=== PATIENT | male | born 1955 | race Caucasian/White ===

== ENCOUNTER 2021-11-30 06:16 | Observation (INO) ==
--- NOTE | 2021-10-29 13:21 | PAT Medication Instructions ---
Medication Instructions Date of Service October 29, 2021 Home Medications cholecalciferol (vitamin D3) 50 mcg (2,000 unit) tablet (Vitamin D3) 50 mcg PO UD coQ10 (ubiquinol) 200 mg capsule 200 mg PO QPM empagliflozin 10 mg tablet (Jardiance) 10 mg PO QAM fenofibrate micronized 134 mg capsule 134 mg PO PM finasteride 1 mg tablet 1 mg PO QAM insulin glargine 100 unit/mL (3 mL) subcutaneous pen (Basaglar KwikPen U-100 Insulin) 46 - 47 unit SUBCUT QAM liraglutide 0.6 mg/0.1 mL (18 mg/3 mL) subcutaneous pen injector (Victoza 2-Yury) 1.8 mg SUBCUT QAM lisinopril 5 mg tablet 5 mg PO QAM metformin 1,000 mg tablet 1,000 mg PO BID omega-3 fatty acids 1,000 mg PO QPM omega-3 fatty acids 1,000 mg PO QPM rosuvastatin 20 mg tablet 20 mg PO QAM STOP taking 2 weeks before surgery (or as soon as possible if surgery is within 2 weeks) coQ10 (ubiquinol) 200 mg capsule 200 mg PO QPM omega-3 fatty acids 1,000 mg PO QPM omega-3 fatty acids 1,000 mg PO QPM STOP taking 48 hours before surgery fenofibrate micronized 134 mg capsule 134 mg PO PM DO NOT take the morning of surgery cholecalciferol (vitamin D3) 50 mcg (2,000 unit) tablet (Vitamin D3) 50 mcg PO UD empagliflozin 10 mg tablet (Jardiance) 10 mg PO QAM lisinopril 5 mg tablet 5 mg PO QAM metformin 1,000 mg tablet 1,000 mg PO BID Take morning of surgery With a small sip of water, OTHERWISE NOTHING TO EAT OR DRINK AFTER MIDNIGHT: finasteride 1 mg tablet 1 mg PO QAM rosuvastatin 20 mg tablet 20 mg PO QAM Take evening before surgery fenofibrate micronized 134 mg capsule 134 mg PO PM metformin 1,000 mg tablet 1,000 mg PO BID Insulin Dependent Diabetic Patients * Test your blood sugar the morning of surgery * If Blood Sugar is GREATER THAN 150, take HALF of your regular dose of: insulin glargine 100 unit/mL (3 mL) subcutaneous pen (Basaglar KwikPen U-100 Insulin) (take 23 units) * If Blood Sugar is LESS THAN 150, DO NOT TAKE ANY: insulin glargine 100 unit/mL (3 mL) subcutaneous pen (Basaglar KwikPen U-100 Insulin) Other Notes If you have any questions please call us at [phone] or [phone] or [phone] or [phone]
--- NOTE | 2021-11-01 11:10 | Anesthesiology Consultation ---
Date of Service November 01, 2021 Assessment & Plan (1) Encounter for pre-operative examination: - COVID screening: Per assessment on 11/01: No known COVID-19 positive contacts or current COVID-19 related symptoms. Travel screen negative. Patient vaccinate d. Surgeon arranging preop COVID testing. Awaiting results. - Check BSG AM DOS Chart Review Chart Review: Acceptable Risk for Surgery and Patient seen in Pre Admission Testing Teaching & Discussion Pre-Anesthesia Teaching/Discussion Notes: Instructed NPO after midnight before surgery,except medications with 15 cc of water. Medication instructions provided according to the PAT guidelines. History Surgery Operation Date: 11/30/21 07:00 Proposed Procedures p Right Unicompartmental Knee Replacement vs - Zbigniew Hay MD s Total Knee Arthroplasty - Zbigniew Hay MD Height/Weight Height: 5 ft 11 in Weight: 111.3 kg Allergies Allergy/AdvReac Type Severity Reaction Status Date / Time No Known Allergies Allergy Unknown Verified 10/29/21 10:03 Medications Home Medications Medication Instructions Recorded Confirmed Last Taken cholecalciferol (vitamin D3) 50 50 mcg PO UD 10/29/21 10/29/21 Unknown mcg (2,000 unit) tablet (Vitamin D3) coQ10 (ubiquinol) 200 mg capsule 200 mg PO QPM 10/29/21 10/29/21 Unknown empagliflozin 10 mg tablet 10 mg PO QAM 10/29/21 10/29/21 Unknown (Jardiance) fenofibrate micronized 134 mg 134 mg PO PM 10/29/21 10/29/21 Unknown capsule finasteride 1 mg tablet 1 mg PO QAM 10/29/21 10/29/21 Unknown insulin glargine 100 unit/mL (3 46 - 47 unit SUBCUT [facility] 10/29/21 10/29/21 Unk nown mL) subcutaneous pen (Basaglar KwikPen U-100 Insulin) liraglutide 0.6 mg/0.1 mL (18 mg/3 1.8 mg SUBCUT [facility] 10/29/21 10/29/21 Unknown mL) subcutaneous pen injector (Victoza 2-Yury) lisinopril 5 mg tablet 5 mg PO QAM 10/29/21 10/29/21 Unknown metformin 1,000 mg tablet 1,000 mg PO BID 10/29/21 10/29/21 Unknown omega-3 fatty acids 1,000 mg PO QPM 10/29/21 10/29/21 Unknown omega-3 fatty acids 1,000 mg PO QPM 10/29/21 10/29/21 Unknown rosuvastatin 20 mg tablet 20 mg PO QAM 10/29/21 10/29/21 Unknown Allergy Relief (fluticasone) DAILY PRN 11/01/21 Unknown Antacid 1 tab PO DAILY 11/01/21 11/01/21 Unknown Wheeled Walker #1 ea 11/01/21 11/01/21 Unknown aspirin 81 mg tablet 81 mg PO BID 11/01/21 11/01/21 Unknown cyanocobalamin (vitamin B-12) 1,000 mcg PO HS 11/01/21 11/01/21 Unknown 1,000 mcg tablet (Vitamin B-12) ibuprofen 1 tab PO DAILY PRN 11/01/21 11/01/21 Unknown Past Medical History Medical History Arthritis Diabetes mellitus, type 2 IDDM Diabetic neuropathy Heartburn High cholesterol Hx of basal cell carcinoma Sleep apnea CPAP (compliant) Exercise / Class Metabolic Activity III < 4 Walking/Shop/Light housework (one FS (no CP, + SOB)) Past Family History Family History Mother Family history of diabetes mellitus Father Family history of diabetes mellitus Other No family history of adverse response to anesthesia Past Surgical History Surgical History History of colonoscopy History of esophagogastroduodenoscopy (EGD) History of tooth extraction History of transurethral resection of prostate Past Anesthesia History No Hx of Anesthesia Complications and No Family Hx of Anesthesia Complications History of PONV No Hx of PONV and No Hx of Motion Sickness Social History Smoking Status: Never smoker Do You Dip or Chew Tobacco: No Hx Alcohol Use: Yes alcohol intake frequency: holidays/special occasions only substance use type: does not use Review of Systems Patient denies chest pain, shortness of breath, fever, chills, cough, wheezing, palpitations. Physical Exam Vital Signs VITALS BP 125/72 P 76 TEMP 97.8 SP02 96%RA RESP 16 PHYSICAL Full cervical extension range of motion. Full TMJ range of motion. TMD 3 finger breaths Mallampati Score 3 Dentition: intact, + crowns, + implants Lungs: clear throughout to auscultation Cardiac: regular rate and rhythm, no murmurs noted Spine: normal Carotid arteries: negative bruit Extremities: no edema Lab Results Anesthesia Preop Results Results Anesthesia Widget: WBC 13.44 K/uL (4.8-10.8) H 11/01/21 Hgb 16.3 g/dL (14.0-18.0) 11/01/21 Hct 49.3 % (42-52) 11/01/21 Plt 277 K/uL (130-400) 11/01/21 Na 140 mmol/L (136-145) 11/01/21 K 4.6 mmol/L (3.5-5.1) 11/01/21 Cl 104 mmol/L (98-107) 11/01/21 CO2 29 mmol/L (21-32) 11/01/21 BUN 24 mg/dl (6-23) H 11/01/21 Creat 1.09 mg/dl (0.6-1.4) 11/01/21 Glucose Level 139 mg/dl (70-99(Fasting)) H 11/01/21 PT 10.4 Seconds (9.0-12.0) 11/01/21 PTT 27.8 Seconds (21.0-31.0) 11/01/21 INR 1.0 (0.9-1.1) 11/01/21 Blood Type O Positive 11/01/21 Antibody Screen NEGATIVE 11/01/21 Testing Laboratory Results Elevated WBC on preop labs > will forward to PCP for continuity of care* 10/04/21 HGBA1C 6.5% Electrocardiogram Date: 11/01/21 NSR at 71bpm. RBBB. Chest X-Ray Date: 11/01/21 FINDINGS: PA and lateral chest radiographs are compared to study dated 05/11/2016. The heart is top normal for projection. The pulmonary vasculature is noncongested. Chronic additional thickening is similar to previous. The lungs and pleural spaces are clear. There is no pneumothorax. The skeletal structures are osteopenic. There are numerous healed right-sided rib fractures. Degenerative change is noted in the thoracic spine. IMPRESSION: No active disease in the chest.
[~2021-11-30 06:16] MED LIST: ACETAMINOPHEN 500 MG TAB PO SCH; BUPIVACAINE LIPOSOME/PF 266 MG, BUPIVACAINE/EPINEPHRINE 50 ML, SODIUM CHLORIDE 0.9% 30 ... INFIL SCH; FAMOTIDINE 20 MG TAB PO SCH; GABAPENTIN 300 MG CAP PO SCH; LR 500ML BOLUS, THEN 15ML/HR IV SCH; LR 60ML/HR IV SCH; Scopolamine 1 MG TDSY TD SCH; TRANEXAMIC ACID 1,000 MG **IV Intra-op IV SCH; ceFAZolin 2000MG 2,000 MG/15 ML SYR IV SCH
[2021-11-30] MEDS ORDERED: BUPIVACAINE 0.25% 30 ML VIAL ONE (06:26)
[2021-11-30] MEDS ORDERED: BUPIVACAINE 0.5 % 5 MG/1 ML PF 10ML VIAL ONE (06:26)
[2021-11-30] MEDS ORDERED: EPINEPHrine INJ 1 MG/ML AMP ONE (06:26)
[2021-11-30] MEDS ORDERED: DEXAMETHASONE SOD INJ 4 MG/ML VIAL ONE (06:26)
--- NOTE | 2021-11-30 06:57 | History & Physical Bridge Note ---
Date of Service November 30, 2021 History & Physical Bridge Note I have examined the patient, reviewed the History & Physical and in the interval since the performance of the History & Physical I have noted the following changes of clinical significance: no changes noted
[2021-11-30] MEDS ORDERED: PROPOFOL IV EMULSION 10 MG/ML 20 ML VIAL IV ONE ×6 (07:32→10:05)
[2021-11-30] MEDS ORDERED: MIDAZOLAM HCL 1 MG/ML 2ML VIAL ONE (07:32)
[2021-11-30] MEDS ORDERED: fentaNYL citrate 100 MCG/2 ML VIAL ONE (07:32)
[2021-11-30] MEDS ORDERED: SODIUM CHLORIDE 0.9% PF 50 ML VIAL ONE (08:44)
[2021-11-30] MEDS ORDERED: BUPIVACAINE/EPINEPHRINE 0.25% 1:200,000 30 ML VIAL ONE (08:44)
[2021-11-30] MEDS ORDERED: BUPIVACAINE LIPOSOME 1.3% 266 MG/20 ML VIAL ONE (08:44)
[2021-11-30] MEDS ORDERED: ONDANSETRON INJ 2 MG/ML 2 ML VIAL ONE (09:10)
[2021-11-30] MEDS ORDERED: fentaNYL citrate 100 MCG/2 ML VIAL IV PRN (09:43)
[2021-11-30] MEDS ORDERED: ATROPINE SULFATE 0.1 MG/ML 10ML SYR IV PRN (09:43)
[2021-11-30] MEDS ORDERED: ONDANSETRON INJ 2 MG/ML 2 ML VIAL IV PRN ×2 (09:43→12:41)
[2021-11-30] MEDS ORDERED: ePHEDrine sulfate 50 MG/ML AMP IV PRN (09:43)
--- NOTE | 2021-11-30 11:18 | Operative Report ---
PG Post Operative Report Pre & Post Diagnosis Operation Date: 11/30/21 08:50 Pre-Op Diagnosis: Right Knee Medial Compartment Degenerative Joint Disease Post-Op Diagnosis: Right Knee Medial Compartment Degenerative Joint Disease I identified the patient and participated in the time-out.: Yes Procedure Operation Date: 11/30/21 08:50 Actual Procedures p Right Unicompartmental Knee Replacement - Zbigniew Hay MD Surgeon Zbigniew Hay MD Legal Librarian Roney Yo PA-C Estimated Blood Loss 25 Findings Consistent with Post-Op Diagnosis Operative findings revealed full-thickness cartilage loss on the medial femoral condyle and a portion of the medial tibial plateau. No real bone eburnation. He had osteophytes medially. He did have some grade 2 changes in the trochlea and the central aspect fairly small and the patella was pretty well-preserved. The lateral compartment was well-preserved. His ACL was intact. Specimens Right knee sent for pathology. Anesthesia Type Spinal MAC Complications none Disposition Accompanied Patient To Recovery: No Indications Patient is a 66-year-old fairly active gentleman whose had about a year to year and a half history of increasing right medial knee pain and discomfort. He has been through conservative treatment putting injections provide only temporary relief. He was having difficulty doing this he will enjoy doing such as golfing. The x-ray showed showed some fairly mild medial compartment arthritis. We did get an MRI which showed medial meniscus tear but pretty significant full-thickness cartilage loss throughout the entire medial compartment. The rest knee looked pretty good and he elected proceed with partial knee replacement. Description of Procedure Operative implants consist of: 1 Biomet Crane size large medial femoral component. 2. Biomet Crane size EE right medial tibial tray. 3. Biomet Crane 4 mm mobile-bearing insert. The patient was taken to the operating, identified, placed on the operating table supine position protectors were properly padded. IV antibiotics tried by anesthesia team. A spinal anesthetic and abductor canal block had provided holding area. Granados catheter was placed in sterile fashion a right thigh turn was then placed in the right lower extremities and prepped and draped in usual sterile fashion. The right leg was elevated exsanguinated with use of an Esmarch in terms playset 300 mmHg. An anterior approach of the right knee was then performed to a slightly oblique incision at beginning of the superior pole of the patella and extending just medial to the tibial tubercle. Sharp dissection was carried through subcutaneous tissue down the extensor mechanism. Full-thickness flaps were elevated. A medial parapatellar arthrotomy incision was made. Some subperiosteal dissection was carried out medially. Great care was taken to protect the MCL ligament. The medial meniscus was excised. The fat pad was was excised. I examined the ACL was pristine. I examined the rest of the knee. The lateral compartment looked very good. The trochlea had some central wear in it but fairly mild. The patella looked pretty good as well. He had full- thickness cartilage loss medially. We elect to proceed with a partial knee replacement. The femur was then sized to a size large. The large spoon was placed. Some osteophytes were taken off the distal femur. The splint was then attached to the extra medullary tibial guide. The guide was pinned in place. The cut for the proximal tibia was made and it was sized to a size EE. Attention drawn the femur. The distal femur stem with a sharp drill. Intramedullary félix was placed. The medium femoral template was placed and attached to the IM félix with the femur set at 4 which was similar to the a 4G clamp used to cut the tibia. The holes were drilled for the femoral component. Posterior cutting guide was placed and the posterior cut was made. The knee was flexed. The remnants of the medial meniscus was excised. I then sized up the tibia to an ER. I used a 0 spigot the milled the distal femur. I then trialed the knee and the 4 feeler gauge fit good in flexion and I was having trouble getting the 1 even in extension. I then used a 3 spigot the milled the distal femur. Even after doing this it was still little tight in extension so I used the a 4 spigot and milled the femur again. After doing this the knee was well balanced in flexion and extension. Attention drawn to placing permanent implants. Nupathe all trial implants were removed. The posterior osteophyte cutting guide was placed and posterior osteophyte was removed. The anterior femoral component relief was performed with the milling device. Cement drill was then used to create holes in the distal femur for cement interdigitation. The tibial tray was pinned in place and the toothbrush blade saw was used to create the defect for the keel. We then trialed the knee 1 more time in the size 4 implant fit most appropriately. Attention drawn to placing permanent components. Nupathe all trial components were removed. I irrigated the wound extensively. We did inject locally with 100 cc of combination of 20 cc of Exparel, 30 cc normal saline, 50 cc of quarter percent Marcaine with epinephrine. Double batch Palacos G cement was then mixed. A size E right medial tibial tray was cemented in place followed by a large femoral component. I used a 4 feeler gauge to pressurize the knee within about 30degrees short of full extension. All extraneous cement was removed. Once the cement was hardened we checked. Additional cement and all was removed. We then trialed the knee 1 more time in the for implant was selected. The performed permanent for implant was placed. The knee was balanced in flexion extension. We then irrigated the wound extensively. The tourniquet was let down for turn time 81 minutes. Hemostasis reduced electrocautery. Extensor mechanism closed with #1 Vicryl suture in a [id number] fashion to the extensor mechanism checked found to be intact the subcutaneous tissue then closed 2 Dexon suture in a buried interrupted fashion skin was closed skin elda. Leg was then cleaned and dried a sterile dressing was Xeroform, 4 x 4's, ABD pad, sterile cast padding, Christian bandage were applied. Patient then transferred to the recovery room in stable condition. Patient tolerated procedure well and there were no complications. Roney Yo, my physician embalmer assistant, was present for the entire procedure. His assistance was essential and required for appropriate patient positioning, prepping and draping, surgical exposure, performing the technical details of the operation, placement the implants, closure of the wound, and placement of the sterile bandage. I attest to the content of the Intraoperative Record and any orders documented therein. Any exceptions are noted below.
--- NOTE | 2021-11-30 11:42 | XRay Report ---
XR knee RT 1 or 2V routine CLINICAL HISTORY: Surgical Post Op TECHNIQUE: 2 views of the right knee were obtained. Comparison: Comparison is made to the radiograph 01/22/2009 FINDINGS: Right knee medial compartment arthroplasty is seen. Expected postsurgical appearance is seen with sub cutaneous emphysema, soft tissue swelling, and surgical staple placement. IMPRESSION: Expected appearance status post medial compartment arthroplasty of the knee. ACT 112: Negative or not required by law. Electronically signed by: Dmitri East M.D. 11/30/2021 11:41 AM
[2021-11-30] MEDS ORDERED: GLUCOSE 10 TABS/TUBE PO PRN (12:41)
[2021-11-30] MEDS ORDERED: HYDROmorphone INJ 0.5 MG/0.5 ML SYR IV PRN (12:41)
[2021-11-30] MEDS ORDERED: DEXTROSE 50% 50 ML SYRINGE IV PRN (12:41)
[2021-11-30] MEDS ORDERED: bisacodyL 10 MG SUPP PR PRN (12:41)
[2021-11-30] MEDS ORDERED: METOCLOPRAMIDE HCL INJ 5 MG/ML 2 ML VIAL IV PRN (12:41)
[2021-11-30] MEDS ORDERED: ALUMINUM/MAGNESIUM SUSP 30 ML UDC PO PRN (12:41)
[2021-11-30] MEDS ORDERED: PHARMACY GLYCEMIC MGMT CONSULT PRN (12:41)
[2021-11-30] MEDS ORDERED: GLUCOSE 40% GEL 15 GM TUBE PO PRN (12:41)
[2021-11-30] MEDS ORDERED: MAGNESIUM HYDROXIDE SUSP 30 ML UDC PO PRN (12:41)
[2021-11-30] MEDS ORDERED: NON-FORMULARY MEDICATION (Cholecalciferol (Vitamin D3) [Vitamin D3] 50 mcg (2,000 unit) Ta PO SCH (12:41)
[2021-11-30] MEDS ORDERED: CARBOHYDRATES FOR HYPOGLYCEMIA PO PRN (12:41)
[2021-11-30] MEDS ORDERED: GLUCAGON FOR INJ 1 MG VIAL SQ PRN (12:41)
[2021-11-30] MEDS ORDERED: NALOXONE HCL 0.4 MG/1 ML VIAL/CARP IV PRN (12:41)
[2021-11-30] MEDS ORDERED: CALCIUM CARBONATE 500 MG CHEWABLE TAB PO PRN (13:39)
[2021-11-30] MEDS: SODIUM CHLORIDE 0.9% 1000ML 1,000 ML IV SCH (14:12)
[2021-11-30] MEDS: ACETAMINOPHEN 500 MG TAB PO SCH ×2 (14:17→21:13)
--- NOTE | 2021-11-30 14:17 | Pharmacy Report ---
Pharmacy Glycemic Short Note 2 - Date of Service November 30, 2021 - Glycemic Short BSG Results (Last 24 hours): 11/30/21 11/30/21 11/30/21 07:18 11:12 12:24 POC Glucose 99 98 99 OUTPATIENT ANTIDIABETIC REGIMEN: * Lantus 46-47 units SC daily * Metformin 1000 mg PO BIDM * Jardiance 10 mg PO daily * Victoza 1.8 mg SC qAM ASSESSMENT: * RF is a 66 year old male POD #0 s/p right unicompartmental knee replacement * Received 4 mg IV dexamethasone in OR * Preop BSG of 99 mg/dL, postop BSG of 99 mg/dL * Unknown HbA1c * Will give scaled Lantus dose with dinner tonight, will allow for reduced dose from home given lower BSGs so far today and in case outpatient diet differs significantly from inpatient PLAN FOR INPATIENT GLYCEMIC CONTROL: * Hold outpatient oral diabetes medications * Basal insulin * Lantus 35-45 units SC x 1 today (see EHR for details), reassess in AM * Bolus insulin * NovoLog per scale ACHS or Q6hrs while NPO * Goal Range: Low 110 mg/dL - High 140 mg/dL * Correction Factor: 15 mg/dL/unit * Nutritional / Prandial insulin per carb ratio of 1 unit per 5 grams CHO consumed
[2021-11-30] MEDS: INSULIN ASPART PER UNIT SC SCH ×3 (14:18→21:19)
--- NOTE | 2021-11-30 14:29 | Anesthesiology Progress Note ---
Date of Service November 30, 2021 Anesthesia Post Procedure Vital Signs Vital Signs: Temp Pulse Pulse Resp BP BP Pulse Ox 11/30/21 14:11 36.6 C 16 136/78 98 11/30/21 13:17 36.6 C 72 18 137/83 98 11/30/21 12:49 35.8 C L 66 16 130/81 97 11/30/21 12:19 35.6 C L 68 143/78 H 91 11/30/21 12:05 65 15 133/78 94 11/30/21 11:55 36.4 C L 70 16 138/81 94 11/30/21 11:45 36.4 C L 70 16 136/80 99 11/30/21 11:35 65 17 126/80 100 11/30/21 11:25 68 19 124/77 100 11/30/21 11:15 76 18 110/73 94 11/30/21 11:07 36.4 C L 80 14 114/66 92 11/30/21 07:14 36.7 C 75 20 147/87 H 96 Transfer of Care Handoff Completed per policy Notes Mental Status: alert / awake / arousable Patient Amnestic to Procedure: Yes Nausea / Vomiting: adequately controlled Pain: adequately controlled Airway Patency, RR, SpO2: stable & adequate BP & HR: stable & adequate Hydration State: stable & adequate Neuraxial Anesthesia: was administered and sensory block is resolving Anesthetic Complications: no major complications apparent and Pt Satisfied with anesthetic care
[2021-11-30] MEDS ORDERED: INSULIN GLARGINE SOLOSTAR 100 UNITS/ML 3 ML PEN SC ONE (16:30)
[2021-11-30] MEDS: Scopolamine CHECK PATCH PLACEMENT SCH (16:35)
[2021-11-30] MEDS ORDERED: TRANEXAMIC ACID / 0.7% NACL 1,000 MG/100 ML BAG IV SCH (17:15)
[2021-11-30] MEDS: ceFAZolin 2000MG 2,000 MG/15 ML SYR IV SCH (17:26)
[2021-11-30] MEDS: ASCORBIC ACID 500 MG TAB PO SCH (17:28)
[2021-11-30] MEDS: KETOROLAC TROMETHAMINE 15 MG/ML VIAL IV SCH (17:28)
[2021-11-30] MEDS ORDERED: NON-FORMULARY MEDICATION (Coq10 (Ubiquinol) 200 mg Capsule) PO SCH (21:00)
[2021-11-30] MEDS ORDERED: NON-FORMULARY MEDICATION (Aspirin 81 mg Tablet) PO SCH (21:00)
[2021-11-30] MEDS ORDERED: NON-FORMULARY MEDICATION (Omega-3 Fatty Acids Capsule) PO SCH ×2 (21:00)
[2021-11-30] MEDS: FENOFIBRATE NANOCRYSTALLIZED 145 MG TABLET PO SCH (21:11)
[2021-11-30] MEDS: DOCUSATE SODIUM 100 MG CAP PO SCH (21:12)
[2021-11-30] MEDS: SENNA 8.6 MG TAB PO SCH (21:12)
[2021-11-30] MEDS: CYANOCOBALAMIN (B-12) 500 MCG TABLET PO SCH (21:13)
[2021-11-30] MEDS: ASPIRIN 81 MG ECTAB PO SCH (21:14)
[2021-11-30] MEDS: TAPENTADOL HCL ER 50 MG TABCR PO SCH (21:20)
[2021-12-01] MEDS: KETOROLAC TROMETHAMINE 15 MG/ML VIAL IV SCH ×5 (00:53→23:17)
[2021-12-01] MEDS: ceFAZolin 2000MG 2,000 MG/15 ML SYR IV SCH (00:54)
[2021-12-01] MEDS: Scopolamine CHECK PATCH PLACEMENT SCH ×4 (00:54→23:17)
[2021-12-01] MEDS: SODIUM CHLORIDE 0.9% 1000ML 1,000 ML IV SCH (01:12)
[2021-12-01] MEDS: ACETAMINOPHEN 500 MG TAB PO SCH ×3 (06:01→20:52)
[2021-12-01 08:34] LABS: Estimated Average Glucose 151 mg/dl; Hemoglobin A1C 6.9 % (4.5-5.6)
[2021-12-01] MEDS ORDERED: NON-FORMULARY MEDICATION (Liraglutide [Victoza 2-Pak] 0.6 mg/0.1 mL (18 mg/3 mL) Pen Injec SQ SCH (09:00)
[2021-12-01] MEDS ORDERED: NON-FORMULARY MEDICATION (Empagliflozin [Jardiance] 10 mg Tablet) PO SCH (09:00)
[2021-12-01] MEDS: DOCUSATE SODIUM 100 MG CAP PO SCH ×2 (09:03→20:52)
[2021-12-01] MEDS: ROSUVASTATIN CALCIUM 20 MG TAB PO SCH (09:03)
[2021-12-01] MEDS: lisinopril 5 MG TAB PO SCH (09:03)
[2021-12-01] MEDS: ASPIRIN 81 MG ECTAB PO SCH ×2 (09:03→20:51)
[2021-12-01] MEDS: TAMSULOSIN HCL 0.4 MG CAP PO SCH (09:03)
[2021-12-01] MEDS: ASCORBIC ACID 500 MG TAB PO SCH ×2 (09:04→17:37)
[2021-12-01] MEDS: MULTIVITAMIN TAB PO SCH (09:04)
[2021-12-01] MEDS: TAPENTADOL HCL ER 50 MG TABCR PO SCH ×2 (09:08→20:55)
[2021-12-01] MEDS: INSULIN ASPART PER UNIT SC SCH ×4 (09:08→20:55)
[2021-12-01] MEDS: INSULIN GLARGINE SOLOSTAR 100 UNITS/ML 3 ML PEN SC SCH (12:36)
--- NOTE | 2021-12-01 12:52 | Pharmacy Report ---
Pharmacy Glycemic Short Note 2 - Date of Service December 01, 2021 - Glycemic Short BSG Results (Last 24 hours): 11/30/21 11/30/21 12/01/21 17:17 20:45 08:14 POC Glucose 203 H 180 H 144 H 12/01/21 12:34 POC Glucose 138 H OUTPATIENT ANTIDIABETIC REGIMEN: * Lantus 46-47 units SC daily * Metformin 1000 mg PO BIDM * Jardiance 10 mg PO daily * Victoza 1.8 mg SC qAM * HbA1c: 6.9% (12/01/21) ASSESSMENT: 12/01/21: * BSGs elevated postoperatively, 203 and 180 mg/dL * Received 55 units of Lantus last evening, which was a slightly stressed home dose * Will decrease basal to equal patient's home dose of Lantus and loosen Novolog parameters now that steroids are discontinued 11/30/21: * RF is a 66 year old male POD #0 s/p right unicompartmental knee replacement * Received 4 mg IV dexamethasone in OR * Preop BSG of 99 mg/dL, postop BSG of 99 mg/dL * Unknown HbA1c * Will give scaled Lantus dose with dinner tonight, will allow for reduced dose from home given lower BSGs so far today and in case outpatient diet differs significantly from inpatient PLAN FOR INPATIENT GLYCEMIC CONTROL: * Hold outpatient oral diabetes medications * Basal insulin * Lantus 46 units SC daily * Bolus insulin * NovoLog per scale ACHS or Q6hrs while NPO * Goal Range: Low 110 mg/dL - High 140 mg/dL * Correction Factor: 20 mg/dL/unit * Nutritional / Prandial insulin per carb ratio of 1 unit per 7 grams CHO consumed
--- NOTE | 2021-12-01 17:40 | Progress Notes ---
DATE OF SERVICE: 12/01/2021 SUBJECTIVE: A 66-year-old gentleman postoperative day 1 from a right partial knee replacement. He i s doing okay. He got up and walked yesterday, his knee gave out on him a couple times. He is pretty concerned about this. It is better today. The therapist did recommend to keep him in a knee immobi lizer for now. It is improved somewhat, but still giving out intermittently. He feels like the bloc k just has not completely worn off. His pain has been very well controlled. He rates the worse at a bout 09/26. OBJECTIVE: VITAL SIGNS: Temperature 36.4. Vital signs are stable. PHYSICAL EXAMINATION: GENERAL: Shows a pleasant middle-aged male. He is sitting up in bed and looks pretty comfortable. LUNGS: Clear to auscultation. HEART: Regular rate and rhythm. ABDOMEN: Soft, nontender, nondistended. EXTREMITIES: Grossly neurovascularly intact except as follows: Examination of the right leg reveals the dressing to be clean, dry and intact. He can dorsiflex and plantarflex his foot appropriately. He can do a straight leg raise, take some effort. He is neurologically intact. LABORATORY DATA: No labs. ASSESSMENT: A 66-year-old gentleman postoperative day 1 from a right partial knee replacement, doing okay. He has had a lot of quad weakness for unclear reasons and I must assume it is related to his anesthetic. It seems to be returning. He does not feel stable and not quite ready to be independent. In light of this, we will keep him ov ernight, do therapy tomorrow and hopefully get him home and have some recovery overnight. PLAN: We will continue DVT prophylaxis including TEDs, SCDs, and aspirin twice a day. Pain is well controlled. Disposition is to discharge to home with home health eventually. Job ID: [id number]
[2021-12-01] MEDS: SENNA 8.6 MG TAB PO SCH (20:51)
[2021-12-01] MEDS: CYANOCOBALAMIN (B-12) 500 MCG TABLET PO SCH (20:51)
[2021-12-01] MEDS: FENOFIBRATE NANOCRYSTALLIZED 145 MG TABLET PO SCH (20:52)
[2021-12-02] MEDS: ACETAMINOPHEN 500 MG TAB PO SCH ×3 (05:16→21:08)
[2021-12-02] MEDS: KETOROLAC TROMETHAMINE 15 MG/ML VIAL IV SCH ×2 (05:17→11:50)
--- NOTE | 2021-12-02 07:41 | Progress Notes ---
DATE OF SERVICE: 12/02/2021. SUBJECTIVE: A 66-year-old gentleman, now postop day 2 from a right partial knee replacement. He is doing quite a bit better this morning. He got up, walked around last evening, was able to put his fu ll weight on there without his leg buckling or giving out. More optimistic this morning. Pain has b een controlled. No chest pain or shortness of breath. OBJECTIVE: VITAL SIGNS: Temperature 37.1. Vital signs are stable. PHYSICAL EXAMINATION: GENERAL: Shows a pleasant middle-aged male. Sitting on bed, looks pretty comfortable. EXTREMITIES: Examination of the right leg reveals the dressing to be in place. There is a little bi t of bloody drainage anteriorly. He can do a good straight leg raise. He is neurologically intact. ASSESSMENT: A 66-year-old gentleman postoperative day 2 from a right partial knee replacement, doing pretty well. His quad function has been a little slow to return, but getting better daily. PLAN: 1. DVT prophylaxis includes thigh-high TEDs, SCDs, and aspirin twice a day. 2. PT, OT, weightbear as tolerated. Right total knee protocol. 3. Pain control, doing okay with current pain regimen. 4. Disposition: Plan to discharge to home with some home health later today. Job ID: [id number]
[2021-12-02] MEDS: DOCUSATE SODIUM 100 MG CAP PO SCH ×2 (08:47→21:07)
[2021-12-02] MEDS: ROSUVASTATIN CALCIUM 20 MG TAB PO SCH (08:47)
[2021-12-02] MEDS: MULTIVITAMIN TAB PO SCH (08:47)
[2021-12-02] MEDS: TAPENTADOL HCL ER 50 MG TABCR PO SCH ×2 (08:47→21:07)
[2021-12-02] MEDS: ASPIRIN 81 MG ECTAB PO SCH ×2 (08:47→21:08)
[2021-12-02] MEDS: ASCORBIC ACID 500 MG TAB PO SCH ×2 (08:47→17:33)
[2021-12-02] MEDS: TAMSULOSIN HCL 0.4 MG CAP PO SCH (08:48)
[2021-12-02] MEDS: Scopolamine CHECK PATCH PLACEMENT SCH ×3 (08:48→23:44)
[2021-12-02] MEDS: INSULIN ASPART PER UNIT SC SCH ×4 (08:51→21:48)
[2021-12-02] MEDS: INSULIN GLARGINE SOLOSTAR 100 UNITS/ML 3 ML PEN SC SCH (08:51)
[2021-12-02] MEDS: metFORMIN HCL 500 MG TAB PO SCH ×2 (08:55→17:33)
[2021-12-02] MEDS: lisinopril 5 MG TAB PO SCH (08:57)
[2021-12-02] MEDS: oxyCODONE HCL IR 5 MG TAB (IMMEDIATE RELEASE) PO PRN ×4 (10:58→23:42)
[2021-12-02] MEDS: FENOFIBRATE NANOCRYSTALLIZED 145 MG TABLET PO SCH (21:08)
[2021-12-02] MEDS: SENNA 8.6 MG TAB PO SCH (21:08)
[2021-12-02] MEDS: CYANOCOBALAMIN (B-12) 500 MCG TABLET PO SCH (21:08)
[2021-12-03] MEDS: ACETAMINOPHEN 500 MG TAB PO SCH ×2 (05:11→14:06)
[2021-12-03] MEDS: oxyCODONE HCL IR 5 MG TAB (IMMEDIATE RELEASE) PO PRN ×2 (05:41→12:23)
[2021-12-03] MEDS: INSULIN ASPART PER UNIT SC SCH ×2 (08:35→12:39)
[2021-12-03] MEDS: INSULIN GLARGINE SOLOSTAR 100 UNITS/ML 3 ML PEN SC SCH (08:37)
[2021-12-03] MEDS: ASPIRIN 81 MG ECTAB PO SCH (08:41)
[2021-12-03] MEDS: DOCUSATE SODIUM 100 MG CAP PO SCH (08:42)
[2021-12-03] MEDS: TAMSULOSIN HCL 0.4 MG CAP PO SCH (08:42)
[2021-12-03] MEDS: ASCORBIC ACID 500 MG TAB PO SCH (08:42)
[2021-12-03] MEDS: MULTIVITAMIN TAB PO SCH (08:42)
[2021-12-03] MEDS: ROSUVASTATIN CALCIUM 20 MG TAB PO SCH (08:43)
[2021-12-03] MEDS: lisinopril 5 MG TAB PO SCH (08:43)
[2021-12-03] MEDS: metFORMIN HCL 500 MG TAB PO SCH (08:43)
[2021-12-03] MEDS: TAPENTADOL HCL ER 50 MG TABCR PO SCH (08:45)
--- NOTE | 2021-12-03 11:35 | Progress Notes ---
DATE OF SERVICE: 12/03/2021 SUBJECTIVE: A 66-year-old gentleman now postop day 3 from a right partial knee replacement. He has kind of struggled with on and off intermittent pain and quad weakness and dysfunction. It seems like he is getting a little bit better daily, but has these episodes where he has pretty severe pain. He has been apprehensive to go home. No chest pain or shortness of breath. Not feeling dizzy or light headed. Looks and feels pretty comfortable currently. OBJECTIVE: VITAL SIGNS: Temperature 36.6. Vital signs are stable. PHYSICAL EXAMINATION: GENERAL: Shows a pleasant middle-aged male. He is lying in bed, looks reasonably comfortable. I lion d to wake him. EXTREMITIES: Examination of the right leg reveals the dressing to be clean, dry and intact. There i s no drainage on his dressing. He can do a straight leg raise with some effort. He can dorsiflex an d plantarflex his foot appropriately. He is neurologically intact. LABORATORIES: None. ASSESSMENT: A 66-year-old gentleman postoperative day 3 from a right partial knee replacement. He h as been struggling a little bit more with intermittent pain than I would suspect. He initially had s ome quad weakness, which seemed to have resolved. PLAN: 1. DVT prophylaxis includes thigh-high TEDs, SCDs, and aspirin twice a day. 2. PT, OT, weightbear as tolerated. Right total knee protocol. 3. Pain control, seems to be doing better with pain control. 4. Disposition: Plan to discharge to home with some home health once his pain is under adequate con trol. Job ID: [id number]
== END 2021-12-03 14:10 | disposition home health service (06) ==
LOC: 3E 06:16 → ASU 06:16

== ENCOUNTER 2023-06-16 09:50 | Inpatient (IN) ==
[2023-06-16 10:31] LABS: Basophils # (auto) 0.06 K/uL (0.00-0.20); Basophils % (auto) 0.5 %; Eosinophils # (auto) 0.16 K/uL (0.00-0.50); Eosinophils % (auto) 1.3 %; Hematocrit (blood only) 52.4 % (42.0-52.0); Hemoglobin 16.9 g/dl (14.0-18.0); Immature Granulocytes # (auto) 0.06 K/uL (0.01-0.20); Immature Granulocytes % (auto) 0.5 %; Lymphocytes # (auto) 0.82 K/uL (1.20-3.40); Lymphocytes % (auto) 6.6 %; Mean Corpuscular Hemoglobin 26.8 pg (25.0-34.0); Mean Corpuscular Hgb Conc 32.3 g/dL (32.0-36.0); Mean Corpuscular Volume 83.2 fL (80.0-100.0); Mean Platelet Volume 9.8 fL (9.4-12.4); Monocytes # (auto) 1.13 K/uL (0.11-0.59); Monocytes % (auto) 9.1 %; Neutrophils # (auto) 10.15 K/uL (1.40-6.50); Platelet Count 253 K/uL (130-400); RDW Coefficient of Variation 14.6 % (11.5-14.5); RDW Standard Deviation 43.3 fL (36.4-46.3); White Blood Count 12.38 K/ul (4.8-10.8)
[2023-06-16 10:41] LABS: Alanine Aminotransferase 65 U/L (7-52); Albumin Globulin Ratio 1.5 (0.9-2); Albumin Level 4.4 gm/dl (3.4-5.0); Alkaline Phosphatase 51 U/L (34-104); Anion Gap 7 (3-11); Aspartate Aminotransferase 46 U/L (13-39); Blood Urea Nitrogen 10 mg/dl (6-23); Calcium 9.3 mg/dl (8.6-10.3); Carbon Dioxide 28 mmol/L (21-32); Chloride 104 mmol/L (98-107); Est GFR (Non-African American) 86.3 ml/min; Globulin 2.9 gm/dl (2.5-4.0); Glucose 141 mg/dl (70-99(Fasting)); Potassium 4.2 mmol/L (3.5-5.1); Sodium 139 mmol/L (136-145); Total Protein 7.3 gm/dl (6.0-8.3)
[2023-06-16 10:47] LABS: Troponin I High Sensitivity 4.4 pg/ml (0-20)
[2023-06-16 10:53] LABS: Partial Thromboplastin Time 27 Seconds (21-31); Prothrombin Time 11.1 Seconds (9.0-12.0)
[2023-06-16] MEDS ORDERED: OPTIRAY 320 125ml IV ONE (11:08)
--- NOTE | 2023-06-16 11:16 | Electrocardiogram Report ---
Test Reason : Blood Pressure : / mmHG Vent. Rate : 104 BPM Atrial Rate : 104 BPM P-R Int : 112 ms QRS Dur : 144 ms QT Int : 396 ms P-R-T Axes : 039 055 021 degrees QTc Int : 520 ms Sinus tachycardia Right bundle branch block Abnormal ECG When compared with ECG of 07-DEC-2021 06:46, T wave inversion now evident in Anterior leads Confirmed by Reza Bullard ([id number]) on 06/16/2023 11:15:37 AM Referred By: Confirmed By:Kaz Bullard
--- NOTE | 2023-06-16 11:40 | Emergency Department Note ---
Impression & Plan TGA (transient global amnesia), Altered mental status ED Provider Note NAME: JAMESON WILL AGE: 68 SEX: M : 1955 ARRIVES VIA: Walk-In INFORMANT: Patient ED PROVIDER(S): Jong Burns DO CHIEF COMPLAINT: Altered mental status HPI: Patient is a 60-year-old male who presents to the ER for altered mental status. Patient woke up this morning and was completely confused as to what day it was the events that transpired since Fredis. notes that he he was continually asking what day it was. That has improved but he still does not remember what occurred over the past couple days completely. He denies any headache or change in vision. No chest pain or shortness of breath. No nausea, vomiting, or diarrhea. No dysuria, urgency, or frequency. No weakness or numbness in the arms or legs. ADDITIONAL HISTORY OBTAINED: Per HPI Chronic Medical/Social Conditions Affecting Care: Per HPI PAST MEDICAL HISTORY:See Below PAST SURGICAL HISTORY:See Below FAMILY HISTORY:See Below SOCIAL HISTORY:See Below HOME MEDICATIONS:See Below ALLERGIES:See Below VITALS:See Below PHYSICAL EXAMINATION: GENERAL: Sitting up in bed, alert, well appearing, well nourished, no distress, non-toxic EYE EXAM: normal conjunctiva. OROPHARYNX: no exudate, no erythema, lips, buccal mucosa, and tongue normal and mucous membranes are moist NECK: supple, no nuchal rigidity, no adenopathy, non-tender LUNGS: Clear to auscultation. Normal chest wall mechanics HEART: no murmurs, S1 normal and S2 normal ABDOMEN: abdomen soft, non-tender, normo-active bowel sounds, no masses, no rebound or guarding. BACK: Back is symmetrical on inspection and there is no deformity, no midline tenderness, no CVA tenderness. SKIN: no rashes and no bruising UPPER EXTREMITIES: upper extremities are grossly normal. LOWER EXTREMITIES: No pitting edema. NEURO EXAM: Normal sensorium, cranial nerves II-XII intact, normal speech, no weakness of arms, no weakness of legs. No drift. Finger to nose intact. Gross sensation intact. MEDICAL DECISION MAKING: Patient is a 68-year-old male who presents ER for above-stated complaint. IV was established blood work is obtained. Labs show mild leukocytosis of 12.3 thousand. No significant anemia. INR unremarkable. BMP along LFTs was negative. Troponin was negative. TSH unremarkable. UA pending upon admission but has no urinary symptoms. CT angios of the head and neck were negative. He is oriented to person place time. Complete neurologically intact. NIH is 0 on my evaluation. He was admitted for further workup of the hospitalist Consults/Care Managements Discussions: Per [facility] Triage Nursing notes reviewed. Limited review of prior medical records performed Vital Signs: reviewed and remarkable for no significant abnormalities Differential diagnosis: Differential diagnoses includes but is not limited to toxic, metabolic, infectious, traumatic, cardiac, neurologic, hematologic, psychiatric and inflammatory etiologies. ER treatment provided: See below Diagnostics interpreted by me include EKG and cardiac monitoring as listed below: -Cardiac Monitoring: An order was placed for continuous cardiac monitoring. The monitor shows a rate of 90 with sinus rhythm. -ECG: Sinus tachycardia rate of 104 Normal axis Right bundle branch block QTc 520 -Laboratory studies:Interpreted by me as stated above in MDM and shown below. Imaging studies: Xrays: As interpreted by me: Portable full AP upright 1 view of the chest shows no focal CTs show: CT angios of the head and neck were negative Procedures:none Critical Care: None Past Med/Surg History Medical History Encounter for pre-operative examination Arthritis Heartburn Diabetes mellitus, type 2 IDDM Hx of basal cell carcinoma Diabetic neuropathy Sleep apnea CPAP (compliant) High cholesterol Contusion of rib on right side Contusion of right shoulder Surgical History History of esophagogastroduodenoscopy (EGD) History of colonoscopy History of transurethral resection of prostate History of tooth extraction Family History Mother Family history of diabetes mellitus Father Family history of diabetes mellitus Other No family history of adverse response to anesthesia Social History Smoking Status: Never smoker Second Hand Exposure: Yes ( A CHILD); Do You Dip or Chew Tobacco: No; Hx Alcohol Use: Yes Preferred Language: Kosovan Communication Ability: Effective Concrete Bucket Loader Required: No Beliefs That Will Affect Care: None marital status: Current Living Situation: Spouse Feels Safe at Home: Yes Assistive Devices: None Allergies Allergies Allergy/AdvReac Type Severity Reaction Status Date / Time No Known Allergies Allergy Unknown Verified 11/30/21 06:56 Home Meds Home Medications Medication Instructions Recorded Confirmed fenofibrate micronized 134 mg 134 mg PO PM 10/29/21 06/16/23 capsule finasteride 1 mg tablet 1 mg PO QAM 10/29/21 06/16/23 insulin glargine 100 unit/mL (3 33 unit subcut QAM 10/29/21 06/16/23 mL) subcutaneous pen (Basaglar KwikPen U-100 Insulin) metformin 1,000 mg tablet 1,000 mg PO BID 10/29/21 06/16/23 rosuvastatin 20 mg tablet 20 mg PO QAM 10/29/21 06/16/23 ascorbic acid (vitamin C) 1,000 mg 1 g PO DAILY 06/16/23 06/16/23 tablet (Vitamin C) aspirin 81 mg tablet,delayed 81 mg PO DAILY 06/16/23 06/16/23 release (Leydi Low Dose Aspirin) cholecalciferol (vitamin D3) 50 50 mcg PO DAILY 06/16/23 06/16/23 mcg (2,000 unit) tablet (Vitamin D3) empagliflozin 25 mg tablet 25 mg PO DAILY 06/16/23 06/16/23 (Jardiance) lisinopril 10 mg tablet 10 mg PO DAILY 06/16/23 06/16/23 tirzepatide 7.5 mg/0.5 mL 7.5 mg subcut WK 06/16/23 06/16/23 subcutaneous pen injector (Red) vitamin B complex 1 tab PO DAILY 06/16/23 06/16/23 Results & Data (ED) Vital Signs Vital Signs - 24 hr 06/16/23 09:57 Temperature 36.6 C Temperature Source Temporal Artery Scan Pulse Rate 101 H Respiratory Rate 18 Blood Pressure 140/79 Blood Pressure Mean 99 Blood Pressure Position Sitting Pulse Oximetry 98 Oxygen Delivery Method Room Air Sepsis Recent Fever Within 48 Hours No Sepsis New/Unexplained Change in Mental Status N/A Sepsis Action Taken by Nursing No Action Required Laboratory Data 06/16/23 10:10 06/16/23 10:10 Lab Results 06/16/23 06/16/23 Range/Units 10:01 10:10 WBC 12.38 H (4.8-10.8) K/ul RBC 6.30 H (4.70-6.10) M/uL Hgb 16.9 (14.0-18.0) g/dl Hct 52.4 H (42.0-52.0) % MCV 83.2 (80.0-100.0) fL MCH 26.8 (25.0-34.0) pg MCHC 32.3 (32.0-36.0) g/dL RDW Std Deviation 43.3 (36.4-46.3) fL RDW Coeff of Rachna 14.6 H (11.5-14.5) % Plt Count 253 (130-400) K/uL MPV 9.8 (9.4-12.4) fL Immature Gran % (Auto) 0.5 % Neut % (Auto) 82.0 % Lymph % (Auto) 6.6 % [place] % (Auto) 9.1 % Eos % (Auto) 1.3 % Baso % (Auto) 0.5 % Neut # (Auto) 10.15 H (1.40-6.50) K/uL Lymph # (Auto) 0.82 L (1.20-3.40) K/uL [place] # (Auto) 1.13 H (0.11-0.59) K/uL Eos # (Auto) 0.16 (0.00-0.50) K/uL Baso # (Auto) 0.06 (0.00-0.20) K/uL Immature Gran # (Auto) 0.06 (0.01-0.20) K/uL PT 11.1 (9.0-12.0) Seconds INR 1.0 (0.9-1.1) APTT 27 (21-31) Seconds PTT Ratio 1.0 Sodium 139 (136-145) mmol/L Potassium 4.2 (3.5-5.1) mmol/L Chloride 104 (98-107) mmol/L Carbon Dioxide 28 (21-32) mmol/L Anion Gap 7 (3-11) BUN 10 (6-23) mg/dl Creatinine 0.91 (0.6-1.4) mg/dl Est Cr Clr Drug Dosing Not Reportable Est GFR ( Amer) 100.0 ml/min Est GFR (Non-Af Amer) 86.3 ml/min BUN/Creatinine Ratio 11.0 (10-20) Glucose 141 H (70-99(Fasting)) mg/dl POC Glucose 148 H (70-99) mg/dl Calcium 9.3 (8.6-10.3) mg/dl Magnesium 2.0 (1.7-2.4) mg/dl Total Bilirubin 1.0 (0.2-1.0) mg/dl AST 46 H (13-39) U/L ALT 65 H (7-52) U/L Alkaline Phosphatase 51 (34-104) U/L Troponin I High Sens 4.4 (0-20) pg/ml Total Protein 7.3 (6.0-8.3) gm/dl Albumin 4.4 (3.4-5.0) gm/dl Globulin 2.9 (2.5-4.0) gm/dl Albumin/Globulin Ratio 1.5 (0.9-2) TSH 1.411 (0.300-4.500) uIu/ml Administered Medications Discontinued Medications Ioversol (Optiray 320 125ml) 116 ml IV ONCE ONE Stop: 06/16/23 11:09 Last Admin: 06/16/23 11:08 Dose: 116 ml Documented By: CHERI Imaging Data Radiologist's Impression: Head CT 06/16/23 10:41 CT angio head w con, CT angio neck with con, CT head/brain wo con CLINICAL HISTORY: 68 years-old Male with poss stroke. Acute shocklike symptoms COMPARISON STUDY: None TECHNIQUE: Unenhanced axial CT scan of the brain is performed. Subsequently, following the IV administration of 116 cc of Optiray, CT angiogram of the head and neck was performed from the aortic arch to the skull apex. Images are reviewed in the axial, sagittal, and coronal planes. 3-D MIPS images are created and assessed. IV contrast was administered without complication. All measurements were obtained according to NASCET criteria. A dose lowering technique was utilized adhering to the principles of ALARA. CT DOSE: 1761.1 mGy.cm FINDINGS: CT BRAIN: There is no acute intracranial hemorrhage, midline shift, hydrocephalus, intracranial mass, territorial ischemia or abnormal extra-axial collections. Suggestion of mild chronic microvascular ischemic disease. No abnormal intra- axial or extra-axial enhancement. Mastoid air cells and middle ear cavities are clear. No calvarial fracture. Mild mucosal thickening of the paranasal sinuses. CT ANGIOGRAM OF THE HEAD AND NECK: Patent innominate and subclavian arteries. The common and internal carotid arteries are patent. The bilateral anterior and middle cerebral arteries are also patent. The vertebrobasilar system and posterior cerebral arteries are widely patent. There is no aneurysm, high-grade stenosis, or proximal branch occlusion identified. Dural sinuses appear patent. Lung apices are clear. Unremarkable soft tissues. Chronic right clavicular fracture deformity. No acute fracture. IMPRESSION: 1. No acute intracranial abnormality. 2. Unremarkable CTA of the head and neck. 3. Mild mucosal thickening of the paranasal sinuses. ACT 112: Negative or not required by law. The above report was generated using voice recognition software. It may contain grammatical, syntax or spelling errors. Electronically signed by: Jc Pitt M.D. 06/16/2023 11:43 AM Head CTA 06/16/23 10:41 CT angio head w con, CT angio neck with con, CT head/brain wo con CLINICAL HISTORY: 68 years-old Male with poss stroke. Acute shocklike symptoms COMPARISON STUDY: None TECHNIQUE: Unenhanced axial CT scan of the brain is performed. Subsequently, following the IV administration of 116 cc of Optiray, CT angiogram of the head and neck was performed from the aortic arch to the skull apex. Images are reviewed in the axial, sagittal, and coronal planes. 3-D MIPS images are created and assessed. IV contrast was administered without complication. All measurements were obtained according to NASCET criteria. A dose lowering technique was utilized adhering to the principles of ALARA. CT DOSE: 1761.1 mGy.cm FINDINGS: CT BRAIN: There is no acute intracranial hemorrhage, midline shift, hydrocephalus, intracranial mass, territorial ischemia or abnormal extra-axial collections. Suggestion of mild chronic microvascular ischemic disease. No abnormal intra- axial or extra-axial enhancement. Mastoid air cells and middle ear cavities are clear. No calvarial fracture. Mild mucosal thickening of the paranasal sinuses. CT ANGIOGRAM OF THE HEAD AND NECK: Patent innominate and subclavian arteries. The common and internal carotid arteries are patent. The bilateral anterior and middle cerebral arteries are also patent. The vertebrobasilar system and posterior cerebral arteries are widely patent. There is no aneurysm, high-grade stenosis, or proximal branch occlusion identified. Dural sinuses appear patent. Lung apices are clear. Unremarkable soft tissues. Chronic right clavicular fracture deformity. No acute fracture. IMPRESSION: 1. No acute intracranial abnormality. 2. Unremarkable CTA of the head and neck. 3. Mild mucosal thickening of the paranasal sinuses. ACT 112: Negative or not required by law. The above report was generated using voice recognition software. It may contain grammatical, syntax or spelling errors. Electronically signed by: Jc Pitt M.D. 06/16/2023 11:43 AM Neck CTA 06/16/23 10:41 CT angio head w con, CT angio neck with con, CT head/brain wo con CLINICAL HISTORY: 68 years-old Male with poss stroke. Acute shocklike symptoms COMPARISON STUDY: None TECHNIQUE: Unenhanced axial CT scan of the brain is performed. Subsequently, following the IV administration of 116 cc of Optiray, CT angiogram of the head and neck was performed from the aortic arch to the skull apex. Images are reviewed in the axial, sagittal, and coronal planes. 3-D MIPS images are created and assessed. IV contrast was administered without complication. All measurements were obtained according to NASCET criteria. A dose lowering technique was utilized adhering to the principles of ALARA. CT DOSE: 1761.1 mGy.cm FINDINGS: CT BRAIN: There is no acute intracranial hemorrhage, midline shift, hydrocephalus, intracranial mass, territorial ischemia or abnormal extra-axial collections. Suggestion of mild chronic microvascular ischemic disease. No abnormal intra- axial or extra-axial enhancement. Mastoid air cells and middle ear cavities are clear. No calvarial fracture. Mild mucosal thickening of the paranasal sinuses. CT ANGIOGRAM OF THE HEAD AND NECK: Patent innominate and subclavian arteries. The common and internal carotid arteries are patent. The bilateral anterior and middle cerebral arteries are also patent. The vertebrobasilar system and posterior cerebral arteries are widely patent. There is no aneurysm, high-grade stenosis, or proximal branch occlusion identified. Dural sinuses appear patent. Lung apices are clear. Unremarkable soft tissues. Chronic right clavicular fracture deformity. No acute fracture. IMPRESSION: 1. No acute intracranial abnormality. 2. Unremarkable CTA of the head and neck. 3. Mild mucosal thickening of the paranasal sinuses. ACT 112: Negative or not required by law. The above report was generated using voice recognition software. It may contain grammatical, syntax or spelling errors. Electronically signed by: Jc Pitt M.D. 06/16/2023 11:43 AM Chest X-Ray 06/16/23 12:24 XR chest 1V not portable CLINICAL HISTORY: confusion TECHNIQUE: Single frontal radiograph of the chest was obtained. Comparison: None available at the time of this dictation. FINDINGS: No lines and tubes are seen. The cardiomediastinal silhouette is normal. The lungs are clear. No evidence of pleural effusion or pneumothorax. IMPRESSION: No acute chest disease. ACT 112: Negative or not required by law. Electronically signed by: Dmitri East M.D. 06/16/2023 1:58 PM Discharge Plan Visit Data Chief Complaint: Altered Mental Status Stated Complaint: CONFUSION, SHORT TERM MEMORY LOSS ED Provider: Jong Burns Discharge Problem: TGA (transient global amnesia), Altered mental status Discharge Problem: Altered mental status Qualifiers: Altered mental status type: unspecified Qualified Code(s): R41.82 - Altered mental status, unspecified
--- NOTE | 2023-06-16 11:44 | CT Scan Report ---
CT angio head w con, CT angio neck with con, CT head/brain wo con CLINICAL HISTORY: 68 years-old Male with poss stroke. Acute shocklike symptoms COMPARISON STUDY: None TECHNIQUE: Unenhanced axial CT scan of the brain is performed. Subsequently, following the IV adminis tration of 116 cc of Optiray, CT angiogram of the head and neck was performed from the aortic arch to the skull apex. Images are reviewed in the axial, sagittal, and coronal planes. 3-D MIPS images are created and assessed. IV contrast was administered without complication. All measurements were obtain ed according to NASCET criteria. A dose lowering technique was utilized adhering to the principles of ALARA. CT DOSE: 1761.1 mGy.cm FINDINGS: CT BRAIN: There is no acute intracranial hemorrhage, midline shift, hydrocephalus, intracranial mass, territori al ischemia or abnormal extra-axial collections. Suggestion of mild chronic microvascular ischemic di sease. No abnormal intra-axial or extra-axial enhancement. Mastoid air cells and middle ear cavities are clear. No calvarial fracture. Mild mucosal thickening of the paranasal sinuses. CT ANGIOGRAM OF THE HEAD AND NECK: Patent innominate and subclavian arteries. The common and internal carotid arteries are patent. The b ilateral anterior and middle cerebral arteries are also patent. 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 There is no aneurysm, high-grade stenosis, or proximal branc h occlusion identified. Dural sinuses appear patent. Lung apices are clear. Unremarkable soft tissues. Chronic right clavicular fracture deformity. No acu te fracture. IMPRESSION: 1. No acute intracranial abnormality. 2. Unremarkable CTA of the head and neck. 3. Mild mucosal thickening of the paranasal sinuses. ACT 112: Negative or not required by law. The above report was generated using voice recognition software. It may contain grammatical, syntax o r spelling errors. Electronically signed by: Jc Pitt M.D. 06/16/2023 11:43 AM
[2023-06-16] MEDS ORDERED: SODIUM CHLORIDE 0.9% 1,000 ML IV ONE (11:51)
--- NOTE | 2023-06-16 12:29 | History & Physical Report ---
Date of Service June 16, 2023 Assessment & Plan (1) TGA (transient global amnesia): (2) Altered mental status: Plan: Patient is 68-year-old male with PMH insulin-dependent DM II, HTN, dyslipidemia, hypertriglyceridemia, APOORVA, obesity presented to ER with complaint of episode of confusion today. WBC: 12, glucose: 141, otherwise no significant electrolyte abnormality, negative troponin. UA unremarkable. TSH WNL, +RSV CT Head: No acute intracranial abnormality. CTA Head and Neck: Unremarkable CTA of the head and neck. Mild mucosal thickening of the paranasal sinuses. DDX TIA, metabolic encephalopathy Tele to monitor for arrhythmias Blood cultures pending EKG in am Troponin: 4.4-->2.9 MRI brain with and without contrast per neurology recommendations Echo with bubble study Continue aspirin, statin Neurology consult (3) RSV (respiratory syncytial virus infection): Plan: +RSV CXR: no acute infiltrate Start Flonase nasal spray (4) Elevated LFTs: Plan: Mildly elevated AST and ALT with normal T bili and alk phos. Have been WNL on outpatient labs. No abdominal pain Repeat CMP in am (5) Abnormal EKG: Plan: EKG: sinus tachycardia, rate 104, RBBB. T wave inversion anterior, septal leads per my interpretation. Compared to EKG 12/07/21 and had RBBB with nonspecific T wave changes anterior leads No CP, SOB Troponin negative x 2 Repeat EKG in am (6) Diabetes mellitus, type 2: Plan: A1c: 6.8 on 05/08/2023 Continue home basal insulin Hold home Jardiance, metformin, Mounjaro (7) High cholesterol: Plan: Continue fenofibrate, rosuvastatin (8) Hypertension: Plan: Stable Continue lisinopril (9) APOORVA (obstructive sleep apnea): Plan: CPAP at bedtime DVT Prophylaxis Lovenox SQ Full Code as per discussion with pt Follows with Dr Monteiro for routine care Pt was seen and care coordinated with Dr Penny. See addendum History of Present Illness Chief Complaint: AMS Primary Care Provider: Raman Monteiro MD Patient is 68-year-old male with PMH insulin-dependent DM II, HTN, dyslipidemia, hypertriglyceridemia, APOOVRA, obesity presented to ER with complaint of episode of confusion today. History obtained from patient, patient's as well as outpatient chart review. Patient states this morning woke up around 8:30 AM and felt "like was in a fog" and was confused. Patient states he did not know what day it was and could not remember the events from the last several days. Patient's states patient kept asking what day it was. He took his blood sugar and reports was 112. As the morning progressed patient had improvement of symptoms and is now remembering the events since and no longer feels like he is in a "fog". Patient's states he seems like he is back to baseline currently. Patient states past couple days has had nasal congestion, rhinorrhea. He admits last night was using OTC phenylephrine nasal spray several times with limited relief. Denies facial/sinus tenderness. Denies known ill contacts. Denies any other new OTC medication use or prescription medication changes. Reports is compliant with CPAP, but last night took off several times secondary to nasal congestion. Denies fever/chills, diaphoresis, N/V/D/C, LOO, dizziness, syncope, vision changes, neck pain, CP, SOB, orthopnea, palpitations, cough, sore throat, choking, otalgia, abdominal pain, paresthesias, weakness, extremity weakness, extremity edema, rashes, urinary symptoms. Allergies Allergy/AdvReac Type Severity Reaction Status Date / Time No Known Allergies Allergy Unknown Verified 11/30/21 06:56 Home Medications Medication Instructions Recorded Confirmed Type fenofibrate micronized 134 mg 134 mg PO PM 10/29/21 06/16/23 History capsule finasteride 1 mg tablet 1 mg PO QA 10/29/21 06/16/23 History insulin glargine 100 unit/mL (3 33 unit subcut QA 10/29/21 06/16/23 History mL) subcutaneous pen (Basaglar KwikPen U-100 Insulin) metformin 1,000 mg tablet 1,000 mg PO BID 10/29/21 06/16/23 History rosuvastatin 20 mg tablet 20 mg PO QAM 10/29/21 06/16/23 History ascorbic acid (vitamin C) 1,000 mg 1 g PO DAILY 06/16/23 06/16/23 History tablet (Vitamin C) aspirin 81 mg tablet,delayed 81 mg PO DAILY 06/16/23 06/16/23 History release (Leydi Low Dose Aspirin) cholecalciferol (vitamin D3) 50 50 mcg PO DAILY 06/16/23 06/16/23 History mcg (2,000 unit) tablet (Vitamin D3) empagliflozin 25 mg tablet 25 mg PO DAILY 06/16/23 06/16/23 History (Jardiance) lisinopril 10 mg tablet 10 mg PO DAILY 06/16/23 06/16/23 History tirzepatide 7.5 mg/0.5 mL 7.5 mg subcut WK 06/16/23 06/16/23 History subcutaneous pen injector (Mounjaro) vitamin B complex 1 tab PO DAILY 06/16/23 06/16/23 History Past Med/Surg History Medical History (Updated 06/16/23 @ 22:48 by Katie Penny DO) Encounter for pre-operative examination Arthritis Heartburn Diabetes mellitus, type 2 IDDM Hx of basal cell carcinoma Diabetic neuropathy Sleep apnea CPAP (compliant) High cholesterol Contusion of rib on right side Contusion of right shoulder Surgical History History of esophagogastroduodenoscopy (EGD) History of colonoscopy History of transurethral resection of prostate History of tooth extraction Family History Mother Family history of diabetes mellitus Father Family history of diabetes mellitus Other No family history of adverse response to anesthesia Social History Smoking Status: Never smoker Second Hand Exposure: Yes ( A CHILD); Do You Dip or Chew Tobacco: No; Hx Alcohol Use: Yes Alcohol type: beer Hx Substance Use: No Preferred Language: [place] Communication Ability: Effective Flight Operations Specialist Required: No Beliefs That Will Affect Care: None marital status: Current Living Situation: Spouse Feels Safe at Home: Yes Safety Concerns: Feels Safe At This Time Assistive Devices: Glasses Review of Systems Review of Systems: All systems reviewed & are unremarkable except as noted in HPI & below Physical Exam Physical Exam: General: no distress, WDWN Head: normocephalic, atraumatic Eyes: PERRL, EOM's intact, no nystagmus, conjunctiva non-injected, anicteric ENT: normal inspection external ears, bilateral TMs joyce without bulging, +erythema and edema nasal turbinates, +clear rhinorrhea, mucous membranes moist Neck: supple, trachea midline Lungs: clear, no respiratory distress, no wheezing/rhonchi/rales CV: RRR, no murmur, no pretibial edema Abd: normal BS, soft, non-tender Ext: no cyanosis, no calf tenderness Neuro: A&O x 3, normal affect, facial sensation is intact and symmetric, face is strong and symmetric, hearing grossly intact, soft palate elevates symmetrically, no dysarthria, shoulder shrug intact, tongue is midline, normal movement, no fasciculations. Muscle tone normal. strength 5/5 bilateral upper and lower extremities. Normal gait Skin: warm, dry Results & Data Results & Data Vital Signs (Past 12 Hours) Vital Signs Temp Pulse Resp BP Pulse Ox O2 Del Method 06/16/23 09:57 36.6 C 101 H 18 140/79 98 Room Air Laboratory Results Short CBC 06/16/23 Range/Units 10:10 WBC 12.38 H (4.8-10.8) K/ul Hgb 16.9 (14.0-18.0) g/dl Hct 52.4 H (42.0-52.0) % Plt Count 253 (130-400) K/uL BMP 06/16/23 10:10 Sodium 139 Potassium 4.2 Chloride 104 Carbon Dioxide 28 BUN 10 Creatinine 0.91 Glucose 141 H Calcium 9.3 Liver Function 06/16/23 Range/Units 10:10 Total Bilirubin 1.0 (0.2-1.0) mg/dl AST 46 H (13-39) U/L ALT 65 H (7-52) U/L Alkaline Phosphatase 51 (34-104) U/L Albumin 4.4 (3.4-5.0) gm/dl Diagnostic Findings Head CT 06/16/23 10:41 CT angio head w con, CT angio neck with con, CT head/brain wo con CLINICAL HISTORY: 68 years-old Male with poss stroke. Acute shocklike symptoms COMPARISON STUDY: None TECHNIQUE: Unenhanced axial CT scan of the brain is performed. Subsequently, following the IV administration of 116 cc of Optiray, CT angiogram of the head and neck was performed from the aortic arch to the skull apex. Images are reviewed in the axial, sagittal, and coronal planes. 3-D MIPS images are created and assessed. IV contrast was administered without complication. All measurements were obtained according to NASCET criteria. A dose lowering technique was utilized adhering to the principles of ALARA. CT DOSE: 1761.1 mGy.cm FINDINGS: CT BRAIN: There is no acute intracranial hemorrhage, midline shift, hydrocephalus, intracranial mass, territorial ischemia or abnormal extra-axial collections. Suggestion of mild chronic microvascular ischemic disease. No abnormal intra- axial or extra-axial enhancement. Mastoid air cells and middle ear cavities are clear. No calvarial fracture. Mild mucosal thickening of the paranasal sinuses. CT ANGIOGRAM OF THE HEAD AND NECK: Patent innominate and subclavian arteries. The common and internal carotid arteries are patent. The bilateral anterior and middle cerebral arteries are also patent. The vertebrobasilar system and posterior cerebral arteries are widely patent. There is no aneurysm, high-grade stenosis, or proximal branch occlusion identified. Dural sinuses appear patent. Lung apices are clear. Unremarkable soft tissues. Chronic right clavicular fracture deformity. No acute fracture. IMPRESSION: 1. No acute intracranial abnormality. 2. Unremarkable CTA of the head and neck. 3. Mild mucosal thickening of the paranasal sinuses. ACT 112: Negative or not required by law. The above report was generated using voice recognition software. It may contain grammatical, syntax or spelling errors. Electronically signed by: Jc Pitt M.D. 06/16/2023 11:43 AM Head CTA 06/16/23 10:41 CT angio head w con, CT angio neck with con, CT head/brain wo con CLINICAL HISTORY: 68 years-old Male with poss stroke. Acute shocklike symptoms COMPARISON STUDY: None TECHNIQUE: Unenhanced axial CT scan of the brain is performed. Subsequently, following the IV administration of 116 cc of Optiray, CT angiogram of the head and neck was performed from the aortic arch to the skull apex. Images are reviewed in the axial, sagittal, and coronal planes. 3-D MIPS images are created and assessed. IV contrast was administered without complication. All measurements were obtained according to NASCET criteria. A dose lowering technique was utilized adhering to the principles of ALARA. CT DOSE: 1761.1 mGy.cm FINDINGS: CT BRAIN: There is no acute intracranial hemorrhage, midline shift, hydrocephalus, intracranial mass, territorial ischemia or abnormal extra-axial collections. Suggestion of mild chronic microvascular ischemic disease. No abnormal intra- axial or extra-axial enhancement. Mastoid air cells and middle ear cavities are clear. No calvarial fracture. Mild mucosal thickening of the paranasal sinuses. CT ANGIOGRAM OF THE HEAD AND NECK: Patent innominate and subclavian arteries. The common and internal carotid arteries are patent. The bilateral anterior and middle cerebral arteries are also patent. The vertebrobasilar system and posterior cerebral arteries are wi ree patent. There is no aneurysm, high-grade stenosis, or proximal branch occlusion identified. Dural sinuses appear patent. Lung apices are clear. Unremarkable soft tissues. Chronic right clavicular fracture deformity. No acute fracture. IMPRESSION: 1. No acute intracranial abnormality. 2. Unremarkable CTA of the head and neck. 3. Mild mucosal thickening of the paranasal sinuses. ACT 112: Negative or not required by law. The above report was generated using voice recognition software. It may contain grammatical, syntax or spelling errors. Electronically signed by: Jc Pitt M.D. 06/16/2023 11:43 AM Neck CTA 06/16/23 10:41 CT angio head w con, CT angio neck with con, CT head/brain wo con CLINICAL HISTORY: 68 years-old Male with poss stroke. Acute shocklike symptoms COMPARISON STUDY: None TECHNIQUE: Unenhanced axial CT scan of the brain is performed. Subsequently, following the IV administration of 116 cc of Optiray, CT angiogram of the head and neck was performed from the aortic arch to the skull apex. Images are reviewed in the axial, sagittal, and coronal planes. 3-D MIPS images are created and assessed. IV contrast was administered without complication. All measurements were obtained according to NASCET criteria. A dose lowering technique was utilized adhering to the principles of ALARA. CT DOSE: 1761.1 mGy.cm FINDINGS: CT BRAIN: There is no acute intracranial hemorrhage, midline shift, hydrocephalus, intracranial mass, territorial ischemia or abnormal extra-axial collections. Suggestion of mild chronic microvascular ischemic disease. No abnormal intra- axial or extra-axial enhancement. Mastoid air cells and middle ear cavities are clear. No calvarial fracture. Mild mucosal thickening of the paranasal sinuses. CT ANGIOGRAM OF THE HEAD AND NECK: Patent innominate and subclavian arteries. The common and internal carotid arteries are patent. The bilateral anterior and middle cerebral arteries are also patent. The vertebrobasilar system and posterior cerebral arteries are widely patent. There is no aneurysm, high-grade stenosis, or proximal branch occlusion identified. Dural sinuses appear patent. Lung apices are clear. Unremarkable soft tissues. Chronic right clavicular fracture deformity. No acute fracture. IMPRESSION: 1. No acute intracranial abnormality. 2. Unremarkable CTA of the head and neck. 3. Mild mucosal thickening of the paranasal sinuses. ACT 112: Negative or not required by law. The above report was generated using voice recognition software. It may contain grammatical, syntax or spelling errors. Electronically signed by: Jc Pitt M.D. 06/16/2023 11:43 AM Chest X-Ray 06/16/23 12:24 XR chest 1V not portable CLINICAL HISTORY: confusion TECHNIQUE: Single frontal radiograph of the chest was obtained. Comparison: None available at the time of this dictation. FINDINGS: No lines and tubes are seen. The cardiomediastinal silhouette is normal. The lungs are clear. No evidence of pleural effusion or pneumothorax. IMPRESSION: No acute chest disease. ACT 112: Negative or not required by law. Electronically signed by: Dmitri East M.D. 06/16/2023 1:58 PM Supervising Physician Co-Signing Physician Notes I have seen and examined the patient and have discussed the case with the provider above. I agree with the assessment and plan as stated. 68-year-old man who presents after waking up this morning with short-term memory loss that was transient. He reports that he did know he was at his house he did know it was 2022 but he was concerned when he could not recognize a coworker's name on his cell phone, and could not remember daily events since hol. He felt fine yesterday other than nasal congestion. He is an educated highly functioning individual who has a solid understanding of his medical issues. He did take phenylephrine nasal spray more than the recommended dosage last night secondary to some nasal congestion that he feels is related to his CPAP. He has no other infectious symptoms and this congestion in his nose started just last night. He has had this congestion in the past. He has no other stroke symptoms reported including no visual changes, numbness or tingling in his hands or feet, no loss of use of his limbs, no difficulty swallowing, no difficulty speaking no difficulty with word finding. He was able to remember previous people he had worked with a long time ago but it seemed short-term memory was most affected. He is now mentating back at his baseline a few hours later. He denies taking any additional medications [id number]. On physical exam he is hemodynamically stable and afebrile oxygenating well on room air. He has no gross focal neurologic deficits. He has high functioning cognitive abilities and is able to tell me back in detail his history. No evidence of carotid bruits, cardiac exam reveals regular rate and rhythm with S1-S2 heard and no evidence of murmurs gallops or rubs. Lungs are clear to auscultation bilaterally. HEENT exam is normal. There is no sinus tenderness to palpation, there is no lymphadenopathy present in the head and neck. Oropharynx is normal. There is some nasal congestion. No increased work of breathing. Patient is otherwise well-nourished and well-developed and physical exam is unremarkable. He is generally well-appearing Workup in the ER revealed head and neck CTA and head CT that was unremarkable. Mild mucosal thickening of the paranasal sinuses was seen. No acute chest disease on chest x-ray. Overall this is a 68-year-old man with transient short-term memory loss. He is a highly functioning individual and has no reports of strokelike symptoms and no evidence of stroke on initial workup in the ER. He is not infected appearing, is not septic, he does not appear to have bacterial sinusitis. Antibiotics are not appropriate in this setting. Although the cause of transient short-term memory loss is not clear, he does not appear to be having any stroke, global amnesia, or other significant neurologic deficit. He is now back to baseline mentation. Agree with short-term hospital stay for expedited neurology consultation plus or minus additional imaging with MRI. Will continue with nasal decongesting efforts including Flonase. Patient does report also having taken Xyzal in the past which helped nasal stuffiness, although has not taken this in the past month. Would consider restarting him on antihistamines once neurology has seen him to avoid unwanted side effects. His chronic conditions including diabetes, APOORVA appear chronic and well controlled. Mounjaro use has been ongoing for the past 6 months and he was recently uptitrated to the 7.5mg weekly dose. He reports tolerating this well and continues on Glargine. No hypoglycemia this am. Doubt any side effects from GLP-1 agonist. Cont CPAP and add humidification given dryness of winter air lately. Later RSV came positive and he was placed in isolation. DO Zohaib (2) Altered mental status Altered mental status type: unspecified Qualified Code(s): R41.82 - Altered mental status, unspecified
--- NOTE | 2023-06-16 14:00 | XRay Report ---
XR chest 1V not portable CLINICAL HISTORY: confusion TECHNIQUE: Single frontal radiograph of the chest was obtained. Comparison: None available at the time of this dictation. FINDINGS: No lines and tubes are seen. The cardiomediastinal silhouette is normal. The lungs are clear. No evid ence of pleural effusion or pneumothorax. IMPRESSION: No acute chest disease. ACT 112: Negative or not required by law. Electronically signed by: Dmitri East M.D. 06/16/2023 1:58 PM
--- OUTSIDE RECORDS SUMMARY | 2023-06-16 14:10 | External Medical Summary | Summary of Care ---
Author Name Unknown Organization [facility] Address [address] [place] [address] Phone [phone] Care Team Providers Care Academic Affairs Assistant Name Role Phone Cayetano CAT MD, Raman Durant Primary Care Provider [phone] Reason for Visit * Reason Onset Date Comments Scan To Read 06/09/2023 Encounter Details Date Type Department Care Team (Late st Contact Info) Description 06/09/2023 Telephone Family Practice [facility] [address] [place] [address] Raman Monteiro III, MD [address] [facility] [address] Scan To Read Allergies No known active allergiesdocumented as of this encounter (statuses as of 06/13/2023) Medications Medication Sig Dispensed Refills Start Date End Date Status Cholecalciferol (VITAMIN D3) 2000 UNITS CapsuleIndications:3 times a week Take 1 Capsule by mouth in the morning. 90 Cap 1 11/05/2014 Active Coenzyme Q10 (CO Q 10) 100 MG CAPS Take 200 mg of opiate by mouth. 0 Active aspirin enteric coated 81 MG TBEC Take 1 Tab by mouth daily. 100 Tab 3 03/09/2017 Active Calcium Carbonate Antacid 420 MG Oral Tablet ChewableIndications: as needed Indications: as needed 0 Active vitamin c (ASCORBIC ACID) 500 MG Tablet Take 6 Tablets by mouth in the morning. 0 Active Krill Oil (OMEGA-3) 500 MG CAPS Take by mouth. 1200 mg daily 0 Active OneTouch Verio Reflect w/Device Kit Use as directed. To test blood sugar. 1 Kit 0 07/06/2020 Active Fluocinonide 0.05 % External Cream Apply to bug bites twice daily x 3-4 days as needed for itching. 30 g 3 11/17/2020 Active Levocetirizine Dihydrochloride 5 MG Oral Tablet Take 1 Tablet by mouth in the morning. 0 Active Vitamin B-12 1000 MCG Oral Tablet Take 1 Tablet by mouth in the morning. 0 Active B-Complex Oral Tablet Take by mouth. 2-3 times a week 0 Active Mini [place]-3 Burp-Less 540 MG Oral Capsule Take by mouth . 0 Active Triamcinolone Acetonide 0.1 % External Cream (Aristocort)Indicati ons:Rash Apply topically to affected area 2 times a day as needed for Itching (rash). To affected area on torso, arms, etc. As needed. 60 g 2 09/23/2022 Active Fluticasone Propionate 50 MCG/ACT Nasal Suspension (Flonase) ADMINISTER 2 SPRAYS INTO EACH NOSTRIL 2 TIMES A DAY. 48 mL 2 10/31/2022 Active Lisinopril 10 MG Oral Tablet (Prinivil)Indication s:Type 2 diabetes mellitus with hemoglobin A1c goal of less than 7.0% (HCC),Hypertriglycer idemia TAKE 1 TABLET BY MOUTH DAILY IN THE MORNING 90 Tablet 2 01/17/2023 Active BD Pen Needle Micro U/F 32G X 6 MM (NOVOFINE 32G PEN NEEDLE) USE 1 NEEDLE FOR BASAGLAR INJECTION AND 1 ADDITIONAL NEEDLE WEEKLY FOR MOUNJARO INJECTION (TOTAL OF 8 NEEDLES WEEKLY) 100 Each 3 02/02/2023 Active CPAP every night at bedtime. Autopap 6-15 cm 0 Active Jardiance 25 MG Oral Tablet (Empagliflozin)Indic ations:Type 2 diabetes mellitus with hemoglobin A1c goal of less than 7.0% (HCC) TAKE 1 TABLET BY MOUTH DAILY. 90 Tablet 0 04/11/2023 Active Rosuvastatin Calcium 20 MG Oral Tablet (Crestor)Indications :Hypertriglyceridemi a TAKE 1 TABLET BY MOUTH DAILY. 90 Tablet 0 04/11/2023 Active Insulin Glargine Solostar 100 UNIT/ML Subcutaneous Solution Pen-injector (Basaglar KwikPen)Indications: Type 2 diabetes mellitus with hemoglobin A1c goal of less than 7.0% (HCC) INJECT 50 UNITS SUBCUTANEOUSLY DAILY; INCREASE 1 UNIT DAILY IN THE MORNING FOR SUGAR OVER 120. 45 mL 0 04/11/2023 Active Additional Information Patient taking differently: INJECT 36-44 UNITS SUBCUTANEOUSLY DAILY; INCREASE 1 UNIT DAILY IN THE MORNING FOR SUGAR OVER 120., Reported on 05/02/2023 Fenofibrate Micronized 134 MG Oral CapsuleIndications:H ypertriglyceridemia TAKE 1 CAPSULE BY MOUTH DAILY 90 Capsule 0 04/11/2023 Active OneTouch Verio In Vitro Strip (Glucose Blood)Indications:Ty pe 2 diabetes mellitus with hemoglobin A1c goal of less than 7.0% (HCC),Hypertriglycer idemia USE UP TO 4 TIMES DAILY 400 Strip 0 04/11/2023 Active OneTouch Delica Plus [id number] Use as directed. To test blood sugar 4x daily. 400 Each 3 04/12/2023 Active metFORMIN HCl 1000 MG Oral Tablet (Glucophage)Indicati ons:Type 2 diabetes mellitus with hemoglobin A1c goal of less than 7.0% (HCC) Take 1 Tablet by mouth in the morning and 1 Tablet before bedtime. With meals.. 180 Tablet 3 04/11/2023 Active Finasteride 1 MG Oral TabletIndications:Al opecia,High triglycerides Take 1 Tablet by mouth in the morning. In the morning.. 90 Tablet 1 05/16/2023 Active Mounjaro 7.5 MG/0.5ML Subcutaneous Solution Pen-injector (Tirzepatide) Inject 7.5 mg under the skin once a week. 2 mL 11 05/19/2023 05/18/20 24 Active traMADol HCl 50 MG Oral Tablet (Ultram)Indications: Chronic right-sided low back pain without sciatica Take 1 Tablet by mouth every 8 hours as needed for Pain, Moderate. 40 Tablet 0 06/09/2023 Active documented as of this encounter (statuses as of 06/13/2023) Active Problems Problem Noted Date Diagnosed Date History of nonmelanoma skin cancer 02/13/2018 Overview: BCC left lateral canthus 07/02 Obesity, Class I, BMI 30.0-34.9 (see actual BMI) 05/08/2017 Excessive weight gain 05/08/2017 Current use of insulin 05/08/2017 Hypertriglyceridemia 01/30/2014 Obesity (BMI 30.0-34.9) 11/13/2011 MICROLBUMINURIA 11/13/2011 Type 2 diabetes mellitus wit h hemoglobin A1c goal of less than 7.0% 11/13/2011 Overview: ICD-10 update of inactive term Chronic sinusitis 11/13/2011 Chronic rhinitis 11/13/2011 Sleep apnea 11/13/2011 Acute sinusitis 08/07/2011 Benign neoplasm of bone 03/26/2009 Closed fracture of five ribs 12/25/2008 ADVANCE DIRECTIVE INFORMATION 02/03/2005 Overview: No, Advance Directive brochure given to patient. 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 documented as of this encounter (statuses as of 06/13/2023) Immunizations Name Administration Dates Next Due COVID-19 mRNA, LNP-s, No Pre serve, 2-Dose Series (Pfizer) 06/05/2021,09/08/2020,08/12/2020 Pneumococcal Conjugate Vacci ne, 20-valent ([id number]) 05/23/2022 Pneumococcal Polysaccharide PPV23 (Pneumovax) 01/19/2021,10/04/2012 Season Influenza, Cell Cultu re, 18+ Yrs, With Preserv (Flucelvax) 04/24/2013 Season Influenza, Quad, PF, Adjuvanted, 65+ Yrs, IM (FLUAD) 04/14/2020 Seasonal Influenza, PF, 6 M & above, IM , (FluLaval or Fluzone) 04/22/2019,04/06/2017 Seasonal Influenza, Quadriva lent Hd (Fluzone Hd) 05/03/2023,04/28/2022,05/03/2021 Seasonal Influenza, Quadriva lent, No Preserve, IM 06/27/2016 Seasonal Influenza, Split, I IV3, With Preserve, Inj 05/13/2014,10/04/2012,04/07/2011 TD, Preservative Free 06/30/2020 TDAP (age 11 and older)(Adacel) 07/07/2008 documented as of this encounter Social History Tobacco Use Types Packs/Day Years Used Date Smoking Tobacco: Never Smokeless Tobacco: Never Alcohol Use Standard Drinks/Week Comments Not Currently 0 (1 standard drink = 0.6 oz pure alcohol) Rare-every 4 months-1-2 beer at a time PHQ-2 Answer Date Recorded PHQ-2 Score 0 08/15/2018 Sex and Gender Information Value Date Recorded Sex Assigned at Not on file Gender Identity Not on file Sexual Orientation Not on file Job Start Date Occupation Industry Not on file Not on file Not on file documented as of this encounter Miscellaneous Notes * Telephone Encounter - Philip Godfrey MD - 06/13/2023 9:51 AM EST Retinal Scan Imaging Jon Rahman [id number] Retinal Scan Interpretation: There is no retinopathy in both eyes Diabetes Retinal Imaging Care Plan: The retinal scan results are normal - I will forward this encounter to the Ophthalmology DM Letter Pool [[id number]], they will send a normal retinal scan letter to the patient, and the patient will be seen back for a yearly scan. Philip Godfrey MD 06/13/2023 9:51 AM * Telephone Encounter - Felecia Valenzuela LPN - 06/09/2023 10:05 AM EST A Diabetic Telemed Eye image was taken and requires your interpretation for Dr Monteiro. Please check your inbasket for image. Patient prefers to be seen at [facility] if a follow-up appointment is needed. documented in this encounter Plan of Treatment Upcoming Encounters Date Type Department Care Team (Late st Contact Info) Description 07/11/2023 11:20 AM EST Nutrition Services Nutrition & Weight Management, [facility] [address] [place] [address] Arianna Rivera RDN [address] [place] [address] 08/15/2023 11:20 AM EST Nutrition Services Nutrition & Weight Management, [facility] [address] [place] [address] Arianna Rivera RDN [address] [facility] [address] 09/12/2023 11:20 AM EDT Nutrition Services Nutrition & Weight Management, [facility] [address] [place] [address] Arianna Rivera RDN [address] [place] [address] 09/26/2023 2:30 PM EDT Nutrition Services Nutrition & Weight Management, [facility] [address] [facility] [place] [address] Arianna Rivera RDN [address] [facility] [place] [address] 10/12/2023 11:00 AM EDT Office Visit Dermatology [facility] [address] [place] [address] Elizabeth Magaña MD [address] [place] [address] 12/06/2023 3:00 PM EDT Office Visit Endocrinology, [facility] [address] [place], [place] [phone] Mehul Paul MD [address] [place] [address] 12/12/2023 9:00 AM EDT Office Visit Family Practice [facility] [place] [address] [facility] [place] [address] Raman Monteiro III, MD [address] [facility] [place] [address] 02/13/2024 10:00 AM EDT Office Visit [facility] [place] [address] [place] [id number] Ankita Mckeon CRNP [address] [place] [address] Health Maintenance Due Date Last Done Comments Zoster Vaccines (1 of 2) 2005 Hepatitis B (1 of 3 - Risk 3-dose series) 2015 Depression Screening 08/15/2019 08/15/2018 Diabetic Foot Exam 06/30/2021 06/30/2020, 1 07/01/2018, 02/20/2018, Additional history exists COVID-19 Vaccine ( season) 2023 06/05/2021, 09/08/2020, 08/12/2020 HbA1c 11/06/2023 05/08/2023, 10/19, 10/04/2021, Additional history exists Albumin/Creatinine Ratio 11/16/20232 023, 07/08/2021, 08/03/2017, Additional history exists GFR 11/16/2023 11/15/2022, 12/17, 04/27/2019, Additional history exists COLONOSCOPY-EVERY 3 YRS AGES 18-100 04/13/2024 04/13/2021, 04/13/2021, 05/25/2017, Additional history exists Diabetic Eye Exam 06/09/2024 06/09/2023, , 05/01/2019, Additional history exists Lipid Panel 11/16/2027 11/15/2022, 12/17, 08/15/2018, Additional history exists DTaP,Tdap,and Td Vaccines (3 - Td or Tdap) 06/30/2030 06/30/2020, 07/07/2008 Pneumococcal Vaccine: 65+ Years Completed 05/23/2022, 01/19/2021, 10/04/2012 Influenza Vaccine (FLU shot) Completed , 04/28/2022, 05/03/2021, Additional history exists GARDASIL-HPV IMMUNIZATION SERIES Aged Out No longer eligible based on patient's age to complete this topic MENINGOCOCCAL (MENACTRA/MENVEO) Aged Out No longer eligible based on patient's age to complete this topic documented as of this encounter Medical Devices Not on filedocumented as of this encounter Care Teams Academic Affairs Assistant Relationship Specialty Start Date End Date Raman Monteiro III, MD [address] [facility] [address] PCP - General 10/10/02 documented as of this encounter
--- OUTSIDE RECORDS SUMMARY | 2023-06-16 14:10 | External Medical Summary | Summary of Care ---
Author Name Unknown Organization [facility] Address [address] [place] [address] Phone [phone] Care Team Providers Care Workforce Staffing Advisor Name Role Phone Cayetano CAT MD, [facility] Primary Care Provider [phone] Reason for Visit * Reason Comments Diabetes Follow-Up Encounter Details Date Type Department Care Team (Late st Contact Info) Description 05/19/2023 3:20 PM EST Office Visit Endocrinology, [place] [address] [place] [address] Mehul Paul MD [address], [place] [id number] Type 2 diabetes mellitus with hemoglobin A1c goal of less than 7.0% ([facility])*; Obesity, Class I, BMI 30.0-34.9 (see actual BMI) Allergies No known active allergiesdocumented as of this encounter (statuses as of 05/19/2023) Medications Medication Sig Dispensed Refills Start Date End Date Status Cholecalciferol (VITAMIN D3) 2000 UNITS CapsuleIndications: 3 times a week Take 1 Capsule by mouth in the morning. 90 Cap 1 11/06/19 15 Active Coenzyme Q10 (CO Q 10) 100 MG CAPS Take 200 mg of opiate by mouth. 0 Active aspirin enteric coated 81 MG TBEC Take 1 Tab by mouth daily. 100 Tab 3 03/09/20 17 Active Calcium Carbonate Antacid 420 MG Oral Tablet ChewableIndications :as needed Indications: as needed 0 Active vitamin c (ASCORBIC ACID) 500 MG Tablet Take 6 Tablets by mouth in the morning. 0 Active Krill Oil (OMEGA-3) 500 MG CAPS Take by mouth. 1200 mg daily 0 Active OneTouch Verio Reflect w/Device Kit Use as directed. To test blood sugar. 1 Kit 0 07/06/19 21 Active Fluocinonide 0.05 % External Cream Apply to bug bites twice daily x 3-4 days as needed for itching. 30 g 3 11/18/19 21 Active Levocetirizine Dihydrochloride 5 MG Oral Tablet Take 1 Tablet by mouth in the morning. 0 Active Vitamin B-12 1000 MCG Oral Tablet Take 1 Tablet by mouth in the morning. 0 Active B-Complex Oral Tablet Take by mouth. 2-3 times a week 0 Active Plenity Oral Capsule Take by mouth 3 Capsules 2 times a day 30 minutes before morning and evening meals . Take 16 oz of water 20 minutes later 100 Capsule 8 08/12/19 22 Active Additional Information Patient not taking.Reported on 03/07/2023 Mini [place]-3 Burp-Less 540 MG Oral Capsule Take by mouth . 0 Active Triamcinolone Acetonide 0.1 % External Cream (Aristocort)Indicat ions:Rash Apply topically to affected area 2 times a day as needed for Itching (rash). To affected area on torso, arms, etc. As needed. 60 g 2 09/24/19 23 Active Fluticasone Propionate 50 MCG/ACT Nasal Suspension (Flonase) ADMINISTER 2 SPRAYS INTO EACH NOSTRIL 2 TIMES A DAY. 48 mL 2 11/01/19 23 Active Lisinopril 10 MG Oral Tablet (Prinivil)Indicatio ns:Type 2 diabetes mellitus with hemoglobin A1c goal of less than 7.0% (HCC),Hypertriglyce ridemia TAKE 1 TABLET BY MOUTH DAILY IN THE MORNING 90 Tablet 2 01/18/20 23 Active BD Pen Needle Micro U/F 32G X 6 MM (NOVOFINE 32G PEN NEEDLE) USE 1 NEEDLE FOR BASAGLAR INJECTION AND 1 ADDITIONAL NEEDLE WEEKLY FOR MOUNJARO INJECTION (TOTAL OF 8 NEEDLES WEEKLY) 100 Each 3 02/03/20 23 Active CPAP every night at bedtime. Autopap 6-15 cm 0 Active traMADol HCl 50 MG Oral Tablet (Ultram)Indications :Chronic right-sided low back pain without sciatica Take 1 Tablet by mouth every 8 hours as needed for Pain, Moderate. 40 Tablet 0 04/12/20 Active Jardiance 25 MG Oral Tablet (Empagliflozin)Gail cations:Type 2 diabetes mellitus with hemoglobin A1c goal of less than 7.0% (HCC) TAKE 1 TABLET BY MOUTH DAILY. 90 Tablet 0 04/11/20 23 Active Rosuvastatin Calcium 20 MG Oral Tablet (Crestor)Indication s:Hypertriglyceride allie TAKE 1 TABLET BY MOUTH DAILY. 90 Tablet 0 04/11/20 Active Insulin Glargine Solostar 100 UNIT/ML Subcutaneous Solution Pen-injector (Basaglar KwikPen)Indications :Type 2 diabetes mellitus with hemoglobin A1c goal of less than 7.0% (HCC) INJECT 50 UNITS SUBCUTANEOUSLY DAILY; INCREASE 1 UNIT DAILY IN THE MORNING FOR SUGAR OVER 120. 45 mL 0 04/11/20 Active Additional Information Patient taking differently: INJECT 36-44 UNITS SUBCUTANEOUSLY DAILY; INCREASE 1 UNIT DAILY IN THE MORNING FOR SUGAR OVER 120., Reported on 05/02/2023 Fenofibrate Micronized 134 MG Oral CapsuleIndications: Hypertriglyceridemi a TAKE 1 CAPSULE BY MOUTH DAILY 90 Capsule 0 04/11/20 Active OneTouch Verio In Vitro Strip (Glucose Blood)Indications:T ype 2 diabetes mellitus with hemoglobin A1c goal of less than 7.0% (HCC),Hypertriglyce ridemia USE UP TO 4 TIMES DAILY 400 Strip 0 04/11/20 Active OneTouch Delica Plus [id number] Use as directed. To test blood sugar 4x daily. 400 Each 3 04/12/20 Active metFORMIN HCl 1000 MG Oral Tablet (Glucophage)Indicat ions:Type 2 diabetes mellitus with hemoglobin A1c goal of less than 7.0% (HCC) Take 1 Tablet by mouth in the morning and 1 Tablet before bedtime. With meals.. 180 Tablet 3 04/11/20 Active Finasteride 1 MG Oral TabletIndications:A lopecia,High triglycerides Take 1 Tablet by mouth in the morning. In the morning.. 90 Tablet 1 05/16/20 23 Active Mounjaro 7.5 MG/0.5ML Subcutaneous Solution Pen-injector (Tirzepatide) Inject 7.5 mg under the skin once a week. 2 mL 11 05/19/20 23 024 Active Mounjaro 5 MG/0.5ML Subcutaneous Solution Pen-injector (Tirzepatide)Indica tions:Type 2 diabetes mellitus with hemoglobin A1c goal of less than 7.0% (HCC) Inject 5 mg under the skin once a week. 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 documented as of this encounter (statuses as of 05/19/2023) Immunizations Name Administration Dates Next Due COVID-19 mRNA, LNP-s, No Pre serve, 2-Dose Series (Pfizer) 06/05/2021,09/08/2020,08/12/2020 Pneumococcal Conjugate Vacci ne, 20-valent ([id number]) 05/23/2022 Pneumococcal Polysaccharide PPV23 (Pneumovax) 01/19/2021,10/04/2012 SEASONAL INFLUENZA, PF, 6 M & Above, IM , (FLULAVAL or FLUZONE) 04/22/2019,04/06/2017 Season Influenza, Cell Culte r, 18+ Yrs, With Preserv (Flucelvax) 04/24/2013 Season Influenza, Quad, PF, Adjuvanted, 65+ Yrs, IM (FLUAD) 04/14/2020 Seasonal Influenza, Quadriva lent Hd (Fluzone Hd) 05/03/2023,04/28/2022,05/03/2021 Seasonal Influenza, Quadriva lent, No Preserve, IM 06/27/2016 Seasonal Influenza, Split, I IV3, With Preserve, Inj 05/13/2014,10/04/2012,04/07/2011 TD, Preservative Free 06/30/2020 TDAP (age 11 and older)(Adacel) 07/07/2008 documented as of this encounter Social History Tobacco Use Types Packs/Day Years Used Date Smoking Tobacco: Never Smokeless Tobacco: Never Tobacco Cessation:Counseling Given: Not Answered Alcohol Use Standard Drinks/Week Comments Not Currently [...] on file documented as of this encounter Last Filed Vital Signs Vital Sign Reading Time Taken Comments Blood Pressure 119/71 05/19/2023 2:48 PM EST Pulse 82 05/19/2023 2:48 PM EST Temperature - - Respiratory Rate - - Oxygen Saturation - - Inhaled Oxygen Concentration - - Weight 106.9 kg (235 lb 11.2 oz) 05/19/2023 2:48 PM EST Height 180.3 cm (5' 11") 05/19/2023 2:48 PM EST Body Mass Index 32.87 05/19/2023 2:48 PM EST documented in this encounter Patient Instructions * Patient Instructions* Mehul Paul MD - 05/19/2023 3:02 PM EST Mounjaro changed to 7.5 mg once a week Reduce basaglar dose to 30 units daily Continue with metformin and Jardiance FU in 6 months documented in this encounter Progress Notes * Deena Ramirez RN - 05/19/2023 3:45 PM EST Patient was instructed to not get up on the exam table/exam chair until directed and assisted by their provider; patient is to remain seated in the chair/ wheelchair/ exam table/ exam chair for fall prevention and safety reasons. Patient is aware to have assistance to step down off exam table/exam chair with personnel. Patient voiced full comprehension of instructions. Denies covid sx. Deena Ramirez RN * Mehul Paul MD - 05/19/2023 2:49 PM EST Referring Provider: Raman Monteiro III, MD Reason for follow up/Chief Complaint: Follow up for type 2 diabetes mellitus Date of Service: 05/19/2023 Last outpatient endocrine visit: 11/08/22 Diabetes mellitus was diagnosed about: Above 10-15 years ago Type of diabetes mellitus: Type 2 Family history of diabetes mellitus: Grandparents: Negative Parents: Mother had type 2 diabetes Siblings: Sister with history of type 2 diabetes Children: Negative Diabetes mellitus related complications: Macrovascular complications: CAD: No CVA: No PVD: No Microvascular complications: Diabetic retinopathy: Diabetic nephropathy: No Diabetic neuropathy: Peripheral: No, Autonomic: No, Diabetic gastroparesis: No Associated comorbidities: Hypertension: Yes Hyperlipidemia: Yes Obesity: Yes Fatty liver disease: Yes, based on ultrasound from 2013 Obstructive sleep apnea: Yes Current antidiabetic regimen: 1. Metformin 1000 mg twice daily 2. Jardiance 25 mg daily 3. Mounjaro 5 mg once a week. Started in 10/2022 4. Lantus (Basaglar)35-40 units daily depending upon fasting glucose readings Proper intake/administration: Yes Compliance: Good Tolerance: Good Prior use of other diabetic medications: Sulfonylurea: In fall and around [facility], he broke into a rash requiring prednisone which resulted in severe hyperglycemia. He briefly used glipizide XL 5 mg daily for few days with prednisone Pioglitazone: No DPP 4 inhibitors: No Prandial insulin: No Relevant information: Personal history of gallstones, gastroparesis or pancreatitis: No Personal or family history of pancreatic cancer or medullary thyroid cancer: Negative 2. History of frequent urinary tract infections, genital yeast infections, DKA, lower extremity amputations: Negative 3. History of congestive heart failure, bladder cancer or smoking: Negative 4. Needle or injection phobia: Negative 5. CKD with GFR below 30: Negative 6. Medication affordability issues: No Hemoglobin AIC Results: Lab Results Component Value Date/Time HEMOGLOBIN A1C - [facility] 6.8 (H) 05/08/2023 12:08 PM HEMOGLOBIN A1C - [facility] 7.5 (H) 11/15/2022 09:02 AM HEMOGLOBIN A1C - [facility] 6.5 (H) 10/04/2021 10:54 AM HEMOGLOBIN A1C - [facility] 7.1 (H) 12/04/2019 04:41 PM HEMOGLOBIN A1C - [facility] 7.4 (H) 04/27/2019 11:30 AM HEMOGLOBIN A1C - [facility] 7.7 (H) 08/15/2018 12:01 PM Current symptoms: Hyperglycemia symptoms: Patient denies polyuria, polydipsia, polyphagia or unintentional weight loss. Patient denies any recent vision changes. Hypoglycemia symptoms: Patient denies hypoglycemia symptoms of sudden onset of sweating, tremors, weakness, palpitations, vision changes. Patient denies history of hypoglycemia related syncope or seizures. Hypoglycemia awareness: Intact Glucose tablets at disposal: Yes Blood glucose monitoring: Patient checks fingerstick blood glucose 1-2 times a day. Glucose log reviewed on phone Fastin, 122, 170, 126, 108, 117 Lifestyle: Since starting Mounjaro, he feels early satiety. No GI side effects. He has lost 10 lb. His goal is to be around 215 lb. 1st meal of day is around 11:00 a.m.. He has snack around 8:00 p.m.. He tries to eat healthy. Mindful of portion sizes. Fairly active playing golf. He does 15k- 25K steps daily. Diabetes health maintenance: 1. Last dilated eye exam: 2020 2. Last urine microalbumin to creatinine ratio: 10/2022 3. Is patient on Christian inhibitors or angiotensin receptor blockers: Yes 4. Is patient on aspirin: Yes 5. Is patient on statins: Yes 6. Influenza vaccination: Up-to-date 7. Pneumococcal vaccination: Up-to-date 8. Covid vaccination: Up-to-date 9. Last foot exam: Not performed today Other chronic medical issues: 1. Hypertension: Blood pressure in clinic today was: 119/71 mmHg Patient denies headaches, blurry vision, chest pain, shortness of breath, lower extremity swelling or palpitations. Patient is currently taking: Lisinopril 10 mg daily Compliance with medical therapy: Excellent Compliance with low-salt diet: Good Creatinine Results: Lab Results Component Value Date/Time CREATININE - [facility] 1.0 11/15/2022 09:02 AM CREATININE - [facility] 1.2 12/29/2020 11:02 AM CREATININE - [facility] 1.2 04/27/2019 11:30 AM CREATININE - [facility] 1.1 08/03/2017 11:09 AM CREATININE - [facility] 1.0 08/08/2016 12:03 PM CREATININE, RANDOM URINE - [facility] 125 11/15/2022 10:40 AM CREATININE, RANDOM URINE - [facility] 54 07/08/2021 10:35 AM CREATININE, RANDOM URINE - [facility] 119 08/03/2017 11:15 AM CREATININE, RANDOM URINE - [facility] 137 08/08/2016 12:04 PM CREATININE, RANDOM URINE - [facility] 83 07/01/2015 01:46 PM Creatinine clearance cannot be calculated (Patient's most recent lab result is older than the maximum 180 days allowed.) Latest Reference Range & Units 11/15/22 10:40 Albumin / Creatinine Ratio, Urine <30 mg/g Creat <10 2. Mixed diabetic hyperlipidemia: Last lipid panel reviewed. Latest Reference Range & Units 11/15/22 09:02 Triglycerides <=174 mg/dL 134 Cholesterol <200 mg/dL 93 Non-HDL Cholesterol <=159 mg/dL 57 HDL Cholesterol >39 mg/dL 36 (L) LDL Cholesterol <=129 mg/dL 30 Patient is currently taking: Rosuvastatin 20 mg daily and fenofibrate plus fish oil Compliance with medical therapy: Tolerance: 3. Obesity class 1 with BMI of 33 Patient admits good compliance with carbohydrate restricted diet and with physical activity. Obesity is medically complicated bed diabetes mellitus, hypertension, hyperlipidemia and metabolic syndrome. Weight trend over past 12 months: Wt Readings from Last 5 Encounters: 05/19/23 106.9 kg (235 lb 11.2 oz) 05/02/23 105.3 kg (232 lb 1.6 oz) 04/04/23 105.9 kg (233 lb 6.4 oz) 03/07/23 106.1 kg (233 lb 14.4 oz) 02/07/23 105.7 kg (233 lb) PMH, PSH, FH, SH reviewed and no changes noted except for what is mentioned in HPI Current Outpatient Medications Medication Sig Dispense Refill aspirin enteric coated 81 MG TBEC Take 1 Tab by mouth daily. 100 Tab 3 B-Complex Oral Tablet Take by mouth. 2-3 times a week BD Pen Needle Micro U/F 32G X 6 MM (NOVOFINE 32G PEN NEEDLE) USE 1 NEEDLE FOR BASAGLAR INJECTION AND 1 ADDITIONAL NEEDLE WEEKLY FOR MOUNJARO INJECTION (TOTAL OF 8 NEEDLES WEEKLY) 100 Each 3 Calcium Carbonate Antacid 420 MG Oral Tablet Chewable Indications: as needed Cholecalciferol (VITAMIN D3) 2000 UNITS Capsule Take 1 Capsule by mouth in the morning. 90 Cap 1 Coenzyme Q10 (CO Q 10) 100 MG CAPS Take 200 mg of opiate by mouth. CPAP every night at bedtime. Autopap 6-15 cm Fenofibrate Micronized 134 MG Oral Capsule TAKE 1 CAPSULE BY MOUTH DAILY 90 Capsule 0 Finasteride 1 MG Oral Tablet Take 1 Tablet by mouth in the morning. In the morning.. 90 Tablet 1 Fluocinonide 0.05 % External Cream Apply to bug bites twice daily x 3-4 days as needed for itching.30 g 3 Fluticasone Propionate 50 MCG/ACT Nasal Suspension (Flonase) ADMINISTER 2 SPRAYS INTO EACH NOSTRIL 2 TIMES A DAY. 48 mL 2 Insulin Glargine Solostar 100 UNIT/ML Subcutaneous Solution Pen-injector (EmbedStoreaglar Rocky) INJECT 50 UNITS SUBCUTANEOUSLY DAILY; INCREASE 1 UNIT DAILY IN THE MORNING FOR SUGAR OVER 120. (Patient taking differently: INJECT 36-44 UNITS SUBCUTANEOUSLY DAILY; INCREASE 1 UNIT DAILY IN THE MORNING FOR SUGAR OVER 120.) 45 mL 0 Jardiance 25 MG Oral Tablet (Empagliflozin) TAKE 1 TABLET BY MOUTH DAILY. 90 Tablet 0 Krill Oil (OMEGA-3) 500 MG CAPS Take by mouth. 1200 mg daily Levocetirizine Dihydrochloride 5 MG Oral Tablet Take 1 Tablet by mouth in the morning. Lisinopril 10 MG Oral Tablet (Prinivil) TAKE 1 TABLET BY MOUTH DAILY IN THE MORNING 90 Tablet 2 metFORMIN HCl 1000 MG Oral Tablet (Glucophage) Take 1 Tablet by mouth in the morning and 1 Tablet before bedtime. With meals.. 180 Tablet 3 Mini [place]-3 Burp-Less 540 MG Oral Capsule Take by mouth . Mounjaro 5 MG/0.5ML Subcutaneous Solution Pen-injector (Tirzepatide) Inject 5 mg under the skin once a week. After using 0.25 mg once a week for 4 weeks 2 mL 3 [employer] Delica Plus [id number] Use as directed. To test blood sugar 4x daily. 400 Each 3 [employer] In Vitro Strip (Glucose Blood) USE UP TO 4 TIMES DAILY 400 Strip 0 [employer] Verio Reflect w/Device Kit Use as directed. To test blood sugar. 1 Kit 0 Plenity Oral Capsule Take by mouth 3 Capsules 2 times a day 30 minutes before morning and evening meals . Take 16 oz of water 20 minutes later (Patient not taking: Reported on 03/07/2023) 100 Capsule 8 Rosuvastatin Calcium 20 MG Oral Tablet (Crestor) TAKE 1 TABLET BY MOUTH DAILY. 90 Tablet 0 traMADol HCl 50 MG Oral Tablet (Ultram) Take 1 Tablet by mouth every 8 hours as needed for Pain, Moderate. 40 Tablet 0 Triamcinolone Acetonide 0.1 % External Cream (Aristocort) Apply topically to affected area 2 times a day as needed for Itching (rash). To affected area on torso, arms, etc. As needed. 60 g 2 Vitamin B-12 1000 MCG Oral Tablet Take 1 Tablet by mouth in the morning. vitamin c (ASCORBIC ACID) 500 MG Tablet Take 6 Tablets by mouth in the morning. No current facility-administered medications for this visit. Review of patient's allergies indicates: No Known Allergies Review of systems: As per HPI. Others reviewed and noted to be negative Physical examination: Filed Vitals: 05/19/23 1448 BP: 119/71 Pulse: 82 Weight: 106.9 kg (235 lb 11.2 oz) Height: 1.803 m (5' 11") Body mass index is 32.87 kg/m. Constitutional: Appears well and appropriate for his age. Eyes: No apparent Periorbital puffiness. Neck: No visible large goiter. Respiratory: Patient is able to speak in complete sentences. Musculoskeletal: Intact range of motion at upper extremities Neuro: AAO X3. Recent and remote memory intact. Psych: Patient makes goodeye contact. Speech noted to be normal. Records: I have reviewed available records in [facility] including provider notes, labs and imaging. Transthoracic echocardiogram 01/2022: Preserved LV systolic function with EF of 60% Abdominal ultrasound 2014: Fatty infiltration of liver Assessment & Plan Type 2 diabetes mellitus with hemoglobin A1c goal of less than 7.0% (HCC) (Primary) Comments and plan: Patient is seen in endocrinology for follow-up of type 2 diabetes mellitus. Diabetes mellitus is uncomplicated. Diabetes mellitus is associated with hypertension, dyslipidemia, obesity, nonalcoholic fatty liver disease and metabolic syndrome. Last A1c: 6.8% in 04/2023, improved from 7.5% Target A1c: 6.5% to 7.0% He is taking and tolerating metformin 1000 mg twice daily, Jardiance 25 mg daily, Mounjaro 5 mg once a week and Basaglar about 35 units daily. He has lost 10 lb since starting Mounjaro. His insulin requirements are coming down as well. I have advised him the following. Increase Mounjaro to 7.5 mg once a week. Reduce Basaglar to 30 units daily with aim to keep fasting readings between 80-120. Continue metformin 1000 mg twice daily Continue Jardiance 25 mg daily Hypertension: On Christian inhibitors. No diabetic kidney disease Aspirin: Yes Dilated eye exam: Due. Advised to follow-up with Ophthalmology for yearly dilated eye exam Hyperlipidemia associated with type 2 diabetes mellitus (HCC) Comments and plan: Goal LDL is less than 100 and goal non-HDL is less than 130. Advised to continuecurrent dose of rosuvastatin, fenofibrate and fish oil. LDL and non-HDL at goal. Obesity, Class I, BMI 30.0-34.9 (see actual BMI) Comments and plan: Advised to continue following up in weight Management Clinic. Mounjaro has been increased. Will follow weight loss trajectory. Advised to remain adherent with healthy lifestyle Return: 6 months or sooner if needed I spent a total of 30-39 minutes (exact time 30 mins) on the date of service in preparation, delivery, and documentation of the care provided to Jon Rahman excluding any time spent in the performance of separately billed services. This chart was completed in part utilizing [employer] Speech Voice Recognition Software. Grammatical errors, random word insertions, pronoun errors, and incomplete sentences are an occasional consequence of this system due to software limitations, ambient noise, and hardware issues. Any formal questions or concerns about the content, text, or information contained within the body of this dictation should be directly addressed to the provider for clarification. Thanks very much for allowing me to assist with this patient's care. Please do not hesitate to contact, in case of any questions or concerns. Mehul Paul MD [place] [address] Cc: Raman Monteiro III, MD documented in this encounter Plan of Treatment Upcoming Encounters Date Type Department Care Team (Late st Contact Info) Description 05/30/2023 2:30 PM EST Nutrition Services Nutrition & Weight Management, [facility] [address] [facility] [place] [address] Arianna Rivera RDN [address] [facility] [place] [address] 06/09/2023 9:40 AM EST Office Visit Family Practice [facility] [place] [address] [address] [place] [address] Raman Monteiro III, MD [address] [place] [address] [place] [address] 07/11/2023 11:20 AM EST Nutrition Services Nutrition & Weight Management, [facility] [address] [facility] [place] [address] Arianna Rivera RDN [address] [facility] [place] [address] 08/15/2023 11:20 AM EST Nutrition Services Nutrition & Weight Management, [facility] [address] [facility] [place] [address] Arianna Rivera RDN [address] [facility] [place] [address] 09/12/2023 11:20 AM EDT Nutrition Services Nutrition & Weight Management, [facility] [address] [facility] [place] [address] Arianna Rivera RDN [address] [facility] [phone] 10/12/2023 11:00 AM EDT Office Visit Dermatology [facility] [address] [facility] [place] [address] Elizabeth Magaña MD [address] [facility] [place] [address] 12/06/2023 3:00 PM EDT Office Visit Endocrinology, [place] [address] [place], [place] [phone] Mehul Paul MD [address], [place] [phone] 02/13/2024 10:00 AM EDT Office Visit [facility] [place] [phone] Ankita Mckeon CRNP [address] [facility] [place] [address] Health Maintenance Due Date Last Done Comments Zoster Vaccines (1 of 2) 2005 Hepatitis B (1 of 3 - Risk 3-dose series) 2015 Depression Screening 08/15/2019 08/15/2018 Diabetic Foot Exam 06/30/2021 06/30/2020, 1 07/01/2018, 02/20/2018, Additional history exists Diabetic Eye Exam 01/19/2022 01/19/2021, , 05/18/2018, Additional history exists COVID-19 Vaccine ( season) 2023 06/05/2021, 09/08/2020, 08/12/2020 HbA1c 11/06/2023 05/08/2023, 10/19, 10/04/2021, Additional history exists Albumin/Creatinine Ratio 11/16/2023 023, 07/08/2021, 08/03/2017, Additional history exists GFR 11/16/2023 11/15/2022, 12/17, 04/27/2019, Additional history exists COLONOSCOPY-EVERY 3 YRS AGES 18-100 04/13/2024 04/13/2021, 04/13/2021, 05/25/2017, Additional history exists Lipid Panel 11/16/2027 11/15/2022, [...] Not on filedocumented as of this encounter Visit Diagnoses Diagnosis Type 2 diabetes mellitus with hemoglobin A1c goal of less than 7.0% (HCC)- Primary Obesity, Class I, BMI 30.0-34.9 (see actual BMI) Obesity, unspecified documented in this encounter Care Teams Workforce Staffing Advisor Relationship Specialty Start Date End Date Cayetano III, Raman E, MD [address] [place] [address] PCP - General 10/10/02 documented as of this encounter
--- OUTSIDE RECORDS SUMMARY | 2023-06-16 14:10 | External Medical Summary | Summary of Care ---
Author Name Unknown Organization [facility] Address [address] [place] [address] Phone [phone] Care Team Providers Care Supervising Bailiff Name Role Phone Cayetano CAT MD, Raman Durant Primary Care Provider [phone] Reason for Visit * Reason Comments Dietary Counseling diet Encounter Details Date Type Department Care Team (Latest Contact Info) Description 05/30/2023 2:30 PM [facility] Nutrition Services Nutrition & Weight Management, [facility] [address] [facility] [place] [address] Arianna Rivera RDN [address] [facility] [place] [address] Obesity, Class I, BMI 30.0-34.9 (see actual BMI)*; Type 2 diabetes, HbA1c goal < 7% ([facility]); Obstructive sleep apnea syndrome Allergies No known active allergiesdocumented as of this encounter (statuses as of 05/30/2023) Medications Medication Sig Dispensed Refills Start Date End Date Status Cholecalciferol (VITAMIN D3) 2000 UNITS CapsuleIndications:3 times a week Take 1 Capsule by mouth in the morning. 90 Cap 1 5 Active Coenzyme Q10 (CO Q 10) 100 MG CAPS Take 200 mg of opiate by mouth. 0 Active aspirin enteric coated 81 MG TBEC Take 1 Tab by mouth daily. 100 Tab 3 7 Active Calcium Carbonate Antacid 420 MG Oral Tablet ChewableIndications: as needed Indications: as needed 0 Active vitamin c (ASCORBIC ACID) 500 MG Tablet Take 6 Tablets by mouth in the morning. 0 Active Krill Oil (OMEGA-3) 500 MG CAPS Take by mouth. 1200 mg daily 0 Active OneTouch Verio Reflect w/Device Kit Use as directed. To test blood sugar. 1 Kit 0 1 Active Fluocinonide 0.05 % External Cream Apply to bug bites twice daily x 3-4 days as needed for itching. 30 g 3 1 Active Levocetirizine Dihydrochloride 5 MG Oral Tablet [...] water 20 minutes later 100 Capsule 8 2 Active Additional Information Patient not taking.Reported on 03/07/2023 [place]-3 Burp-Less 540 MG Oral Capsule Take by mouth . 0 Active Triamcinolone Acetonide 0.1 % External Cream (Aristocort)Indicati ons:Rash Apply topically to affected area 2 times a day as needed for Itching (rash). To affected area on torso, arms, etc. As needed. 60 g 2 3 Active Fluticasone Propionate 50 MCG/ACT Nasal Suspension (Flonase) ADMINISTER 2 SPRAYS INTO EACH NOSTRIL 2 TIMES A DAY. 48 mL 2 3 Active Lisinopril 10 MG Oral Tablet (Prinivil)Indication s:Type 2 diabetes mellitus with hemoglobin A1c goal of less than 7.0% (HCC),Hypertriglycer idemia TAKE 1 TABLET BY MOUTH DAILY IN THE MORNING 90 Tablet 2 3 Active BD Pen Needle Micro U/F 32G X 6 MM (NOVOFINE 32G PEN NEEDLE) USE 1 NEEDLE FOR BASAGLAR INJECTION AND 1 ADDITIONAL NEEDLE WEEKLY FOR MOUNJARO INJECTION (TOTAL OF 8 NEEDLES WEEKLY) 100 Each 3 3 Active CPAP every night at bedtime. Autopap 6-15 cm 0 Active traMADol HCl 50 MG Oral Tablet (Ultram)Indications: Chronic right-sided low back pain without sciatica Take 1 Tablet by mouth every 8 hours as needed for Pain, Moderate. 40 Tablet 0 3 Active Jardiance 25 MG Oral Tablet (Empagliflozin)Indic ations:Type 2 diabetes mellitus with hemoglobin A1c goal of less than 7.0% (HCC) TAKE 1 TABLET BY MOUTH DAILY. 90 Tablet 0 3 Active Rosuvastatin Calcium 20 MG Oral Tablet (Crestor)Indications :Hypertriglyceridemi a TAKE 1 TABLET BY MOUTH DAILY. 90 Tablet 0 3 Active Insulin Glargine Solostar 100 UNIT/ML Subcutaneous Solution Pen-injector (Basaglar KwikPen)Indications: Type 2 diabetes mellitus with hemoglobin A1c goal of less than 7.0% (HCC) INJECT 50 UNITS SUBCUTANEOUSLY DAILY; INCREASE 1 UNIT DAILY IN THE MORNING FOR SUGAR OVER 120. 45 mL 0 3 Active Additional Information Patient taking differently: INJECT 36-44 UNITS SUBCUTANEOUSLY DAILY; INCREASE 1 UNIT DAILY IN THE MORNING FOR SUGAR OVER 120., Reported on 05/02/2023 Fenofibrate Micronized 134 MG Oral CapsuleIndications:H ypertriglyceridemia TAKE 1 CAPSULE BY MOUTH DAILY 90 Capsule 0 3 Active OneTouch Verio In Vitro Strip (Glucose Blood)Indications:Ty pe 2 diabetes mellitus with hemoglobin A1c goal of less than 7.0% (HCC),Hypertriglycer idemia USE UP TO 4 TIMES DAILY 400 Strip 0 3 Active OneTouch Delica Plus [id number] Use as directed. To test blood sugar 4x daily. 400 Each 3 3 Active metFORMIN HCl 1000 MG Oral Tablet (Glucophage)Indicati ons:Type 2 diabetes mellitus with hemoglobin A1c goal of less than 7.0% (HCC) Take 1 Tablet by mouth in the morning and 1 Tablet before bedtime. With meals.. 180 Tablet 3 3 Active Finasteride 1 MG Oral TabletIndications:Al opecia,High triglycerides Take 1 Tablet by mouth in the morning. In the morning.. 90 Tablet 1 3 Active Mounjaro 7.5 MG/0.5ML Subcutaneous Solution Pen-injector (Tirzepatide) Inject 7.5 mg under the skin once a week. 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 documented as of this encounter (statuses as of 05/30/2023) Immunizations Name Administration Dates Next Due COVID-19 mRNA, LNP-s, No Pre serve, 2-Dose Series (AdoTube) 06/05/2021,09/08/2020,08/12/2020 Pneumococcal Conjugate Vacci ne, 20-valent (Fkpassn80) 05/23/2022 Pneumococcal Polysaccharide PPV23 (Pneumovax) 01/19/2021,10/04/2012 Season [...] Sign Reading Time Taken Comments Blood Pressure 120/78 05/30/2023 2:39 PM EST Pulse 86 05/30/2023 2:39 PM EST Temperature 36.7 C (98.1 F) 05/30/2023 2:39 PM ES T Respiratory Rate - - Oxygen Saturation - - Inhaled Oxygen Concentration - - Weight 104.9 kg (231 lb 4.8 oz) 05/30/2023 2:39 PM EST Height - - Body Mass Index 32.26 05/19/2023 2:48 PM EST documented in this encounter Patient Instructions * Patient Instructions* Arianna Rivera RDN - 05/30/2023 3:06 PM EST No meal skipping Have a protein shake in the morning Lean protein 80-90 g daily Aim for 2,000 calories a day tracking with Lose it, no less 0313-7384 calories a day Free weights/hand weights/[employer] use: aim for 30-45 min most days of the week in addition toplaying golf. Maintain at least 12,000 steps a day Water/decaf fluids: at least 64 oz daily documented in this encounter Progress Notes * Arianna Rivera RDN - 05/30/2023 2:30 PM EST NUTRITION & WEIGHT MANAGEMENT PROGRESS NOTE [facility] Name: Jon Rahman Location: NUTRITION & WEIGHT MANAGEMENT, [facility] Date: 05/29/2023 Time: 2:45 PM Patient was identified at visit by name and date. Patient was seen [id number] in the clinic. NUTRITION ASSESSMENT SUBJECTIVE: 68 year old male with DM (insulin), Obesity Class I, APOORVA, HTN, Hyperlipidemia, Fatty LIverwho has been following in clinic since 09/11/2013 and weighed 262 lbs at that time.Patient Occupation Retired. Lives with . Pt and his does the cooking and grocery shopping. PRIOR NUTRITION COUNSELING: Weight Management Clinic was in MBS program initially SUPPLEMENTS: Fish Oil PERTINENT MEDICATIONS: metformin 1000 mg twice daily, Jardiance 25 mg daily, Mounjaro 7.5 mg once aweek and Basaglar about 35 units daily. He has lost 10 lb since starting Mounjaro. FOOD ALLERGY/INTOLERANCE ISSUES: None 05/30/23 -Monthly dietary follow up -Wt is down today -has reduced units of basaglar was 45-50, now taking ~30-35 units in the AM -Having a kitchen remodel in jun/05/02/23 -Routine monthly dietary follow up -Son and his were recently visiting from [facility]. -Not consistent with tracking 04/04/23 -Routine monthly dietary return -Making protein shakes 60 g whey protein 20 g soy protein -Started tracking again in Lose It -Mounjaro 5.0, BG has been good -Son and are coming home at the end of the month for a week. 03/07/23 -Routine monthly dietary return -On mounjaro 5.0 no GI issues -Eating less in portions, eating more carbs 12/27/22 -Routine monthly dietary return -On mounjaro .5 no GI upset -Upcoming trip to [place] this Monday -Been eating less -Feeling full faster, the desire to eat goes away faster -Feeling full a bit longer 11/22/22 -routine monthly RD visit -Saw endo 11/08/22, now on mounjaro 2.5 to help with DM control -Daughter had second grandbaby (little girl) today right before visit! -Seeing reduction in portion sizes Describes typical diet history/24 hr recall Breakfast: Snacks: Fruit Lunch: Protein or Ramen Snacks: No Dinner: Meat, veg or Ramen Snacks: Sometimes pretzels or almonds Drinks: Water ~70-80 oz a day Alcohol: Infrequent Reports he is getting in ~16-1700 calories a day Restaurant meals: once a week, twice a week PHYSICAL ACTIVITY: Sedentary, Light DIET RECALL INDICATES: Poor meal distribution Inadequate fiber intake Inadequate fruit and vegetable intake Inadequate protein intake Portion control Low fat and/or low sugar selections Progress on goals from the previous visit: No meal skipping not compliant Lean protein 80-90 g daily not getting, considering adding in a protein shake a day Aim for 2,000 calories a day tracking with Lose it Getting in [id number] a day, not tracking mental checks Free weights/hand weights/[employer] use: aim for 30-45 min most days of the week in addition toplaying golf Maintain at least 12,000 steps a day-->getting most days of the week, avg over the wee over 12k Water/decaf fluids: at least 64 oz daily, compliant ANTHROPOMETRICS: Initial clinic visit 09/11/13 Weight 262 lbs Height 70.75" Body mass index is 36.83 kg/m. AIBW: 189 lbs/ 86 kg HIGHEST WEIGHT: 272 lbs Date: 2009 WT GOAL: 215 lbs Current weight: 231 lbs (226-227.4 lbs on home scale) MIRACLE Weight: 232 lbs Date: 05/02/23 Weight changes: -1 lbs since MIRACLE Wt Readings from Last 10 Encounters: 05/30/23 104.9 kg (231 lb 4.8 oz) 05/19/23 106.9 kg (235 lb 11.2 oz) 05/02/23 105.3 kg (232 lb 1.6 oz) 04/04/23 105.9 kg (233 lb 6.4 oz) 03/07/23 106.1 kg (233 lb 14.4 oz) 02/07/23 105.7 kg (233 lb) 12/27/22 108.4 kg (238 lb 14.4 oz) 11/22/22 109.4 kg (241 lb 3.2 oz) 11/09/22 111 kg (244 lb 12.8 oz) 11/08/22 111.1 kg (245 lb) MNT: Calorie Controlled Diet, Low Fat Diet, High Fiber Diet, Good Nutrition, Nutrient Dense Diet, 80-90 grams Protein Patient is interested in the following treatment options for obesity: medical management. LABS:Pertinent lab studies have been reviewed. Latest Ref Rng 07/05/2021 10/04/2021 11/15/2022 05/08/2023 DIABETES:LAB HEMOGLOBIN A1C 4.0 - 5.6 % 6.7 (H) 6.5 (H) 7.5 (H) 6.8 (H) NUTRITION PRESCRIPTION: [place] St. Jeor 1908 x 1.3 activity factor = 2480 Kcals --> 2000 Kcals for weight loss Sedentary 1.2 Light 1.3 Moderate 1.5 Active 1.7 Very Active 1.9 Protein: 1.0 gm protein/AIBW (86 kg) = 86 gm protein/day Fluid: 25 mL/AIBW (86 kg) = 2150 mL/day KNOWLEDGE ASSESSMENT: adequate knowledge but does not apply BARRIERS TO LEARNING: None SPECIAL EDUCATION NEEDS: None NUTRITION DIAGNOSIS Overweight/obesity related to excessive energy intake and physical inactivity as evidenced by BMI of 32.26 kg/m, Class I Obesity. NUTRITION INTERVENTION No meal skipping Lean protein 80-90 g daily Aim for 2,000 calories a day tracking with Lose it Free weights/hand weights/[employer] use: aim for 30-45 min most days of the week in addition toplaying golf. Maintain at least 12,000 steps a day Water/decaf fluids: at least 64 oz daily INSTRUCTED PT ON THESE NUTRITION HANDOUTS: None given PATIENT GOALS: See above EXPECTED OUTCOMES: Demonstrated interest in learning. Expect compliance with diet recommendations. PLAN: Scheduled in Jun 30 min visit Arianna Rivera RDN documented in this encounter Nursing Notes * Edie Liu MED ASSIST - 05/30/2023 2:43 PM EST Pt verified identity by last name and date. Chief Complaint Patient presents with Dietary Counseling diet documented in this encounter Plan of Treatment Upcoming Encounters Date Type Department Care Team (Late st Contact Info) Description 06/09/2023 9:40 AM EST Office Visit [facility] [address] [facility] [address] [place] [address] Raman Monteiro III, MD [address] [facility] [place] [address] 07/11/2023 11:20 AM EST Nutrition Services Nutrition & Weight Management, [facility] [address] [place] [id number] Arianna Rivera RDN [address] [place] [id number] 08/15/2023 11:20 AM EST Nutrition Services Nutrition & Weight Management, [facility] [address] [address] Arianna Rivera RDN [address] [place] [address] 09/12/2023 11:20 AM EDT Nutrition Services Nutrition & Weight Management, [facility] [address] [place] [address] Arianna Rivera RDN [address] [place] [address] 09/26/2023 2:30 PM EDT Nutrition Services Nutrition & Weight Management, [facility] [address] [facility] [place] [address] Arianna Rivera RDN [address] [facility] [place] [address] 10/12/2023 11:00 AM EDT Office Visit Dermatology [facility] [address] [place] [address] Elizabeth Magaña MD [address] [facility] [place] [address] 12/06/2023 3:00 PM EDT Office Visit Endocrinology, [place] [address], [place] [phone] Mehul Paul MD [address], [place] [id number] 02/13/2024 10:00 AM EDT Office Visit Sleep Disorders [facility] [address] [facility] [place] [phone] Ankita Mckeon CRNP [address] [facility] [place] [address] Health Maintenance Due Date Last Done Comments Zoster Vaccines (1 of 2) 2005 Hepatitis B (1 of 3 - Risk 3-dose series) 2015 Depression Screening 08/15/2019 08/15/2018 Diabetic Foot Exam 06/30/2021 06/30/2020, 1 07/01/2018, 02/20/2018, Additional history exists Diabetic Eye Exam 01/19/2022 01/19/2021, , 05/18/2018, Additional history exists COVID-19 Vaccine (4 - 2023-24 season) 2023 06/05/2021, 09/08/2020, 08/12/2020 HbA1c 11/06/2023 [...] as of this encounter Visit Diagnoses Diagnosis Obesity, Class I, BMI 30.0-34.9 (see actual BMI)- Primary Obesity, unspecified Type 2 diabetes, HbA1c goal < 7% ([facility]) Type II or unspecified type diabetes mellitus without mention of complication, not stated as uncontrolled Obstructive sleep apnea syndrome Obstructive sleep apnea (adult) (pediatric) documented in this encounter Care Teams Supervising Bailiff Relationship Specialty Start Date End Date Raman Monteiro III, MD [address] [place] [address] PCP - General 10/10/02 documented as of this encounter
--- OUTSIDE RECORDS SUMMARY | 2023-06-16 14:10 | External Medical Summary | Summary of Care ---
Author Name Unknown Organization [facility] Address [address] [place] [address] Phone [phone] Care Team Providers Care Dictaphone Mechanic Name Role Phone Cayetano CAT MD, Raman Durant Primary Care Provider [phone] Reason for Visit * Reason Comments Re-Check Encounter Details Date Type Department Care Team (Late st Contact Info) Description 06/09/2023 9:40 AM EST Office Visit Family Practice [facility] [address] [place] [address] Raman Monteiro III, MD [address] [place] [address] Type 2 diabetes mellitus with hemoglobin A1c goal of less than 7.0% ([facility])*; Chronic right-sided low back pain without sciatica; Hypertriglyceridemia; DM type 2 nursing care encounter (HCC) Allergies No known active allergiesdocumented as of [...] by mouth. 1200 mg daily 0 Active AttributorTouch Verio Reflect w/Device Kit Use as directed. [...] 2-3 times a week 0 Active Mini Molino-3 Burp-Less 540 MG Oral Capsule Take by [...] 3 Active Lisinopril 10 MG Oral Tablet (Prinivil)Indicatio [...] 0 Active Jardiance 25 MG Oral Tablet (Empagliflozin)Gail [...] Strip 0 3 Active OneTouch Delica Plus [id number] Use as directed. To test blood sugar 4x daily. 400 Each 3 3 Active metFORMIN HCl 1000 MG Oral Tablet (Glucophage)Indicat ions:Type 2 diabetes mellitus with hemoglobin A1c goal of less than 7.0% (HCC) Take 1 Tablet by mouth in the morning and 1 Tablet before bedtime. With meals.. 180 Tablet 3 3 Active Finasteride 1 MG Oral TabletIndications:A lopecia,High triglycerides Take 1 Tablet by mouth in the morning. In the morning.. 90 Tablet 1 3 Active Mounjaro 7.5 MG/0.5ML Subcutaneous Solution Pen-injector (Tirzepatide) Inject 7.5 mg under the skin once a week. 2 mL 11 3 05/18/20 24 Active traMADol HCl 50 MG Oral Tablet (Ultram)Indications :Chronic right-sided low back pain without sciatica Take 1 Tablet by mouth every 8 hours as needed for Pain, Moderate. 40 Tablet 0 3 Active Plenity Oral Capsule Take by mouth 3 Capsules 2 times a day 30 minutes before morning and evening meals . Take 16 oz of water 20 minutes later 100 Capsule 8 2 06/09/20 23 Discontinu ed(Medicat ion List Clean Up) traMADol HCl 50 MG Oral Tablet (Ultram)Indications :Chronic right-sided low back pain without sciatica Take 1 Tablet by mouth every 8 hours as needed for Pain, Moderate. 40 Tablet 0 3 06/09/20 23 Discontinu ed(Refill) documented as of this encounter (statuses as [...] (Pfizer) 06/05/2021,09/08/2020,08/12/2020 Pneumococcal Conjugate Vacci ne, 20-valent ([id number]) 05/23/2022 Pneumococcal Polysaccharide PPV23 (Pneumovax) 01/19/2021,10/04/2012 Season [...] Sign Reading Time Taken Comments Blood Pressure 112/66 06/09/2023 9:13 AM EST Pulse 84 06/09/2023 9:13 AM EST Temperature 36 C (96.8 F) 06/09/2023 9:13 AM EST Respiratory Rate 16 06/09/2023 9:13 AM EST Oxygen Saturation 99% 06/09/2023 9:13 AM EST Inhaled Oxygen Concentration - - Weight 103.8 kg (228 lb 12.8 oz) 06/09/2023 9:13 AM EST Height - - Body Mass Index 31.91 05/19/2023 2:48 PM EST documented in this encounter Patient Instructions * Patient Instructions* Felecia ValenzuelaALISON - 06/09/2023 9:57 AM EST Images from the original note were not included. Diabetic Retinopathy: Evaluating Your Eyes Diabetic retinopathy is a condition that happens when diabetes damages blood vessels in the rear ofthe eye. It can lead to vision loss. To help catch it early, have a complete dilated eye exam at least once a year. During the exam, the eye healthcare provider will review your medical history, examine your eyes, and check your vision. Women who are and have pre-existing type 1 or type 2 diabetes have an increased risk of retinopathy. Women with diabetes should have an eye exam before or in the first trimester. They should continue to be monitored every trimester and for 1 year after delivery, depending on the severity of the retinopathy. The retina is the light-sensitive part of the eye that allows you to see. High blood sugar can damage blood vessels of the retina and cause them to leak or bleed. This damage can lead to abnormal blood vessel growth. This condition is called diabetic retinopathy. You may not have symptoms early in the disease. Later, there may be floaters, blurred vision, or poor night vision. There may also be partial or complete vision loss. Early cases of diabetic retinopathy can be treated by carefully controlling blood sugar, blood pressure, and cholesterol. Surgery or laser treatments may help restore lost vision. Laser surgery can shrink abnormal blood vessels or close ones that are leaking. Medicines injected in the eye can help decrease swelling of the retina. Home care Take all medicines, including insulin or oral diabetic medicine, exactly as prescribed. Follow the diet advised by your healthcare provider. If you have high cholesterol, follow a low-fat, low-cholesterol diet. Monitor blood sugars as advised. Try to achieve your ideal weight. If you smoke, quit smoking. Tobacco use worsens the effect of diabetes on your blood vessels. If you have high blood pressure, consider buying an automatic blood pressure machine. These are available at most pharmacies. Use this to monitor your blood pressure. Report your blood pressure readings to your healthcare provider. Exercise regularly. Follow-up care Follow up with your healthcare provider, or as advised. You must have a complete eye exam at least once a year, more often if needed. Untreated diabetic retinopathy can lead to complete loss of vision. Occupational therapists can help you adapt to any vision loss you have, including learning techniques to safely administer insulin. When to seek medical advice Call your healthcare provider right away if any of these occur. Increasing blurriness or any sudden changes in your vision Sudden flashes of light inside your eye New floaters (small dots or strings that seem to be moving across your field of vision) Eye pain, redness, or discharge from your eyelid New dark spots appearing in your field of vision Halos around lights Dimness of vision Partial or complete loss of vision Women with diabetes should have a complete eye exam before becoming , or as soon as possible when they find out they are . Retinopathy sometimes worsens during . Your eye exam Your eye healthcare provider uses an eye chart and other tools to check your vision. Then he or sheexamines your eyes for signs of disease. You are given eye drops to widen (dilate) your pupils. Youmay have one or more of the following tests: Tonometry to measure fluid pressure inside the eye. Slit lamp exam to allow the healthcare provider to view the structures of your eye. Ultrasound to create an image of the eye using sound waves. Ultrasound may be used if blood is found in the clear gel that fills the eye (vitreous). Ocular coherence tomography (OCT) to create an image of the retina using light waves. This shows ifthere is fluid leaking into certain parts of the eye. It can also measure the thickness of the retina. Fluorescein angiography This test may be done to check the health of the inside lining of the eye (retina). It also checks the tiny blood vessels (capillaries) that carry blood to the retina. During the test: Photographs are taken of the retina. A dye is then injected into the bloodstream through the arm or hand. The dye travels to the capillaries in the eye. More photographs are taken of the retina. The dye causes the capillaries to stand out on the photographs. You may feel brief nausea during the procedure. For a few hours after the test, your skin, eyes, and urine may appear yellow. Talk with your healthcare provider for more information about this test. Date Last Reviewed: 11/18/201519995409-0011 The [employer]. [address] [place] [address], [place] [address]. All rights reserved. This information is not intended as a substitute for professional medical care. Always follow your healthcare professional's instructions. documented in this encounter Progress Notes * Raman Monteiro III, MD - 06/09/2023 9:51 AM EST Subjective: Jon Rahman is a 68 year old male. 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.9 Type 2 diabetes mellitus with hemoglobin A1c goal of less than 7.0% ([facility]) E11.9 Chronic sinusitis J32.9 Chronic rhinitis J31.0 Sleep apnea G47.30 Hypertriglyceridemia E78.1 Obesity, Class I, BMI 30.0-34.9 (see actual BMI) E66.9 Excessive weight gain R63.5 Current use of insulin ([facility]) Z79.4 History of nonmelanoma skin cancer Z85.828 Current Outpatient Medications Medication Sig Dispense Refill traMADol HCl 50 MG Oral Tablet (Ultram) Take 1 Tablet by mouth every 8 hours as needed for Pain, Moderate. 40 Tablet 0 Cholecalciferol (VITAMIN D3) 2000 UNITS Capsule Take 1 Capsule by mouth in the morning. 90 Cap 1 Coenzyme Q10 (CO Q 10) 100 MG CAPS Take 200 mg of opiate by mouth. aspirin enteric coated 81 MG TBEC Take 1 Tab by mouth daily. 100 Tab 3 Calcium Carbonate Antacid 420 MG Oral Tablet Chewable Indications: as needed vitamin c (ASCORBIC ACID) 500 MG Tablet Take 6 Tablets by mouth in the morning. Krill Oil (OMEGA-3) 500 MG CAPS Take by mouth. 1200 mg daily OneTouch Verio Reflect w/Device Kit Use as directed. To test blood sugar. 1 Kit 0 Fluocinonide 0.05 % External Cream Apply to bug bites twice daily x 3-4 days as needed for itching.30 g 3 Levocetirizine Dihydrochloride 5 MG Oral Tablet Take 1 Tablet by mouth in the morning. Vitamin B-12 1000 MCG Oral Tablet Take 1 Tablet by mouth in the morning. B-Complex Oral Tablet Take by mouth. 2-3 times a week Mini Molino-3 Burp-Less 540 MG Oral Capsule Take by mouth . Triamcinolone Acetonide 0.1 % External Cream (Aristocort) Apply topically to affected area 2 times a day as needed for Itching (rash). To affected area on torso, arms, etc. As needed. 60 g 2 Fluticasone Propionate 50 MCG/ACT Nasal Suspension (Flonase) ADMINISTER 2 SPRAYS INTO EACH NOSTRIL 2 TIMES A DAY. 48 mL 2 Lisinopril 10 MG Oral Tablet (Prinivil) TAKE 1 TABLET BY MOUTH DAILY IN THE MORNING 90 Tablet 2 BD Pen Needle Micro U/F 32G X 6 MM (NOVOFINE 32G PEN NEEDLE) USE 1 NEEDLE FOR BASAGLAR INJECTION AND 1 ADDITIONAL NEEDLE WEEKLY FOR MOUNJARO INJECTION (TOTAL OF 8 NEEDLES WEEKLY) 100 Each 3 CPAP every night at bedtime. Autopap 6-15 cm Jardiance 25 MG Oral Tablet (Empagliflozin) TAKE 1 TABLET BY MOUTH DAILY. 90 Tablet 0 Rosuvastatin Calcium 20 MG Oral Tablet (Crestor) TAKE 1 TABLET BY MOUTH DAILY. 90 Tablet 0 Insulin Glargine Solostar 100 UNIT/ML Subcutaneous Solution Pen-injector (Basaglar KwikPen) INJECT 50 UNITS SUBCUTANEOUSLY DAILY; INCREASE 1 UNIT DAILY IN THE MORNING FOR SUGAR OVER 120. (Patient taking differently: INJECT 36-44 UNITS SUBCUTANEOUSLY DAILY; INCREASE 1 UNIT DAILY IN THE MORNING FOR SUGAR OVER 120.) 45 mL 0 Fenofibrate Micronized 134 MG Oral Capsule TAKE 1 CAPSULE BY MOUTH DAILY 90 Capsule 0 OneTouch Verio In Vitro Strip (Glucose Blood) USE UP TO 4 TIMES DAILY 400 Strip 0 [employer] Worldwideuch Delica Plus [id number] Use as directed. To test blood sugar 4x daily. 400 Each 3 metFORMIN HCl 1000 MG Oral Tablet (Glucophage) Take 1 Tablet by mouth in the morning and 1 Tablet before bedtime. With meals.. 180 Tablet 3 Finasteride 1 MG Oral Tablet Take 1 Tablet by mouth in the morning. In the morning.. 90 Tablet 1 Mounjaro 7.5 MG/0.5ML Subcutaneous Solution Pen-injector (Tirzepatide) Inject 7.5 mg under the skinonce a week. 2 mL 11 No current facility-administered medications for this visit. Review of patient's allergies indicates: No Known Allergies Past Medical History: Diagnosis Date Benign neoplasm of colon 03/2012 Hyperplastic polyp repeat in 5 yrs Dyslipidemia, goal LDL below 160 Other psoriasis Sleep apnea, obstructive Past Surgical History: Procedure Laterality Date COLONOSCOPY, DIAGNOSTIC (RECTUM) 04/13/2012 hyperplastic polyp repeat in 5 yrs COLONOSCOPY, DIAGNOSTIC (RECTUM) 05/25/2017 adenomatous polyps, diverticulosis, poor prep, repeat 3 yrs/COLONOSCOPY FLEXIBLE PROXIMAL DIAGNOSTIC performed by Harmeet Leroy MD at ENDOSCOPY [facility] COLONOSCOPY, DIAGNOSTIC (RECTUM) 04/13/2021 diverticulosis sigmoid colon/lipomatous ileocecal vlave/hemorrhoids/biopsies normal/COLONOSCOPY FLEXIBLE PROXIMAL DIAGNOSTIC performed by Harmeet Leroy MD at ENDOSCOPY [facility] MISCELLANEOUS ORDER ([facility] ONLY) 2006 partial TURP WY ARTHRP KNE CONDYLE&PLATU MEDIAL&LAT COMPARTMENTS Right Objective: The patient is a 68 year old male BP 112/66 | Pulse 84 | Temp 36 C (96.8 F) (Tympanic) | Resp 16 | Wt 103.8 kg (228 lb 12.8 oz) |SpO2 99% | BMI 31.91 kg/m | BSA 2.28 m General: alert, healthy, and no distress Eye Exam: PERRLA, extraocular movements intact, conjunctiva are pink and non- injected, sclera clear Oropharynx: no exudate, no erythema, lips, buccal mucosa, and tongue normal, and mucous membranes are moist Heart: regular rate & rhythm, no murmur, and no gallops Lungs: chest symmetric with normal AP diameter, no chest deformities noted, no chest wall tenderness, lungs clear to auscultation Extremities: less than 2 second capillary refill, no joint deformities, effusion, or inflammation ASSESSMENT: E11.9 Type 2 diabetes mellitus with hemoglobin A1c goal of less than 7.0% ([facility]) (primary encounter diagnosis) M54.50,G89.29 Chronic right-sided low back pain without sciatica E78.1 Hypertriglyceridemia PLAN: Can try sugar free Metamucil for bowels labs ordered A1c lipids microalbumin retinal photograph RSVvaccine discussed encouraged Follow up in 6 month(s) Ki microalbumin it is at make sure I am not in in the chart that. Raman Monteiro III, MD documented in this encounter Nursing Notes * Felecia Valenzuela LPN - 06/09/2023 9:07 AM EST Jon Rahman presents for 6 month recheck. Medications & HM reviewed. documented in this encounter Plan of Treatment Upcoming Encounters Date Type Department Care Team (Late st Contact Info) Description 07/11/2023 11:20 AM EST Nutrition Services Nutrition & Weight Management, [facility] [address] [facility] [place] [address] Arianna Rivera RDN [address] [place] [address] 08/15/2023 11:20 AM EST Nutrition Services Nutrition & Weight Management, [facility] [address] [facility] [place] [address] [facility] RDN [facility] [place] [address] 09/12/2023 11:20 AM EDT Nutrition Services Nutrition & Weight Management, [facility] [address] [facility] [place] [address] Arianna Rivera RDN [address] [place] [address] 09/26/2023 2:30 PM EDT Nutrition Services Nutrition & Weight Management, [facility] [address] [place] [address] Arianna Rivera RDN [address] [place] [address] 10/12/2023 11:00 AM EDT Office Visit Dermatology [facility] [address] [place] [address] Elizabeth Magaña MD 200 [facility] [place] [address] 12/06/2023 3:00 PM EDT Office Visit Endocrinology, [place] [address] [place] [address] Mehul Paul MD [address] [place] [address] 12/12/2023 9:00 AM EDT Office Visit Family Practice [facility] [address] [place] [address] Raamn Monteiro III, MD [address] [facility] [place] [address] 02/13/2024 10:00 AM EDT Office Visit Sleep Disorders Ctr [facility] [address] [place] [phone] Ankita Mckeon CRNP [address] [facility] [place] [address] Scheduled Orders Name Type Priority Associated Diagnoses Orde r Schedule COMPREHENSIVE METABOLIC PANEL Lab Routine Type 2 diabetes mellitus with hemoglobin A1c goal of less than 7.0% (HCC) Expected: 06/09/2023 (Approximate), Expires: 06/08/2024 LIPID PANEL WITH DIRECT LDL IF TG IS HIGH Lab Routine Type 2 diabetes mellitus with hemoglobin A1c goal of less than 7.0% (HCC) Expected: 06/09/2023, Expires: 06/09/2024 HEMOGLOBIN A1C Lab Routine Type 2 diabetes mellitus with hemoglobin A1c goal of less than 7.0% (HCC) Expected: 06/09/2023 (Approximate), Expires: 06/08/2024 Health Maintenance Due Date Last Done Comments [...] Not on filedocumented as of this encounter Procedures Procedure Name Priority Date/Time Associated Diagnosis Comments TELEMEDICINE DIABETIC EYE Routine 06/09/2023 Type 2 diabetes mellitus with hemoglobin A1c goal of less than 7.0% (HCC) documented in this encounter Results * TELEMEDICINE DIABETIC EYE (06/09/2023) 06/09/2023 Raman Monteiro III, MD DIGITAL PHOTOGRAPHY documented in this encounter Visit Diagnoses Diagnosis Type 2 diabetes mellitus with hemoglobin A1c goal of less than 7.0% (HCC)- Primary Chronic right-sided low back pain without sciatica Hypertriglyceridemia Pure hyperglyceridemia DM type 2 nursing care encounter (HCC) Type II or unspecified type diabetes mellitus without mention of complication, not stated as uncontrolled documented in this encounter Care Teams Dictaphone Mechanic Relationship Specialty Start Date End Date Raman Monteiro III, MD [address] [facility] [place] [address] PCP - General 10/10/02 documented as of this encounter"
--- OUTSIDE RECORDS SUMMARY | 2023-06-16 14:11 | External Medical Summary | Summary of Care ---
Author Name Unknown Organization [facility] Address [address] [place] [address] Phone [phone] Care Team Providers Care Recovery Agent Name Role Phone Cayetano CAT MD, Raman Durant Primary Care Provider [phone] Encounter Details Date Type Department Care Team (Late st Contact Info) Description 05/03/2023 11:40 AM EST Immunization Ancillary [facility] [address] [place] [address] Sp, [facility] [address] [place] [address] Arrived Allergies No known active allergiesdocumented as of this encounter (statuses as of 05/03/2023) Medications Medication Sig Dispensed Refills Start Date [...] Information Patient not taking.Reported on 03/07/2023 Mini Bena-3 Burp-Less 540 MG Oral Capsule Take by mouth . 0 Active Triamcinolone Acetonide 0.1 % External Cream (Aristocort)Indicati ons:Rash Apply topically to affected area 2 times a day as needed for Itching (rash). To affected area on torso, arms, etc. As needed. 60 g 2 3 Active Finasteride 1 MG Oral TabletIndications:Al opecia,High triglycerides TAKE ONE TABLET BY MOUTH EVERY MORNING 90 Tablet 2 3 Active Fluticasone Propionate 50 MCG/ACT Nasal Suspension (Flonase) ADMINISTER 2 SPRAYS INTO EACH NOSTRIL 2 TIMES A DAY. 48 mL 2 3 Active Lisinopril 10 MG Oral Tablet (Prinivil)Indication s:Type 2 diabetes mellitus with hemoglobin A1c goal of less than 7.0% ([facility]),Hypertriglycer idemia TAKE 1 TABLET BY MOUTH DAILY [...] TIMES DAILY 400 Strip 0 3 Active Mounjaro 5 MG/0.5ML Subcutaneous Solution Pen-injector (Tirzepatide)Indicat ions:Type 2 diabetes mellitus with hemoglobin A1c goal of less than 7.0% (HCC) Inject 5 mg under the skin once a week. After using 0.25 mg once a week for 4 weeks 2 mL 3 3 Active OneTouch Delica Plus [id number] Use as directed. To test blood sugar 4x daily. 400 Each 3 3 Active metFORMIN HCl 1000 MG Oral Tablet (Glucophage)Indicati ons:Type 2 diabetes mellitus with hemoglobin A1c goal of less than 7.0% (HCC) Take 1 Tablet by mouth in the morning and 1 Tablet before bedtime. With meals.. 180 Tablet 3 3 Active documented as of this encounter (statuses as of 05/03/2023) Active Problems Problem Noted Date Diagnosed Date [...] as of this encounter (statuses as of 05/03/2023) Resolved Problems Problem Noted Date Diagnosed Date Resolved Date DM type 2, not at goal 12/15/201002/20 Obesity, Class II, BMI 35-39 .9, isolated (see actual BMI) 11/30/2009 09/11/2013 Overview: Per Obesity Protocol, #19 trauma 12/25/2008 12/25/2008 Hyperchylomicronemia 02/28/2006 009 Overview: Resolved per Duplicate Protocol #2. documented as of this encounter (statuses as of 05/03/2023) Immunizations Name Administration Dates Next Due COVID-19 mRNA, LNP-s, No Pre serve, 2-Dose Series (Pfizer) 06/05/2021,09/08/2020,08/12/2020 Pneumococcal Conjugate Vacci ne, 20-valent ([id number]) 05/23/2022 Pneumococcal Polysaccharide PPV23 (Pneumovax) 01/19/2021,10/04/2012 SEASONAL [...] on file documented as of this encounter Plan of Treatment Upcoming Encounters Date Type Department Care Team (Late st Contact Info) Description 05/19/2023 3:20 PM EST Office Visit Endocrinology, [place] [address] [place] [address] Mehul Paul MD [address] [place] [address] 05/30/2023 2:30 PM EST Nutrition Services Nutrition & Weight Management, [facility] [address] [place] [address] Arianna Rivera RDN [address] [place] [address] 06/09/2023 9:40 AM EST Office Visit Family Practice [facility] [address] Raman Monteiro III, MD [address] [facility] [place] [address] 07/11/2023 11:20 AM EST Nutrition Services Nutrition & Weight Management, [facility] [address] [place] [address] Arianna Rivera RDN [address] [place] [address] 08/15/2023 11:20 AM EST Nutrition Services Nutrition & Weight Management, [facility] [address] [place] [address] Arianna Rivera RDN [address] [facility] [place] [address] 09/12/2023 11:20 AM EDT Nutrition Services Nutrition & Weight Management, [facility] [address] [facility] [place] [address] Arianna Rivera RDN [address] [place] [address] 10/12/2023 11:00 AM EDT Office Visit Dermatology [facility] [address] [place] [place] [address] Elizabeth Magaña MD [address] [facility] [place], [place] [address] 02/13/2024 10:00 AM EDT Office Visit Sleep Disorders Ctr [facility] [address] [facility] [place] [phone] Ankita Mckeon CRNP [address] [place] [address] Health Maintenance Due Date Last Done Comments Zoster Vaccines (1 of 2) 2005 Hepatitis B (1 of 3 - Risk 3-dose series) 2015 Depression Screening 08/15/2019 08/15/2018 Diabetic Foot Exam 06/30/2021 06/30/2020, 1 07/01/2018, 02/20/2018, Additional history exists Diabetic Eye Exam 01/19/2022 01/19/2021, , 05/18/2018, Additional history exists COVID-19 Vaccine ( season) 2023 06/05/2021, 09/08/2020, 08/12/2020 HbA1c 05/18/2023 11/15/2022, 09/17, 07/05/2021, Additional history exists Albumin/Creatinine Ratio 11/16/2023 023, [...] filedocumented as of this encounter Care Teams Recovery Agent Relationship Specialty Start Date End Date Raman Monteiro III, MD [address] [place] [address] PCP - General 10/10/02 documented as of this encounter
--- OUTSIDE RECORDS SUMMARY | 2023-06-16 14:11 | External Medical Summary | Summary of Care ---
Author Name Unknown Organization [facility] Address [address] [place] [address] Phone [phone] Care Team Providers Care Cafe Assistant Name Role Phone Cayetano CAT MD, Raman Durant Primary Care Provider [phone] Encounter Details Date Type Department Care Team (Late st Contact Info) Description 05/03/2023 11:40 AM EST Immunization Ancillary [facility] [address] [place] [address] Sp, Flu Shot Clinic 200 [place] [address] Arrived Allergies No known active allergiesdocumented as [...] Information Patient not taking.Reported on 03/07/2023 Mini [place]-3 Burp-Less 540 MG Oral Capsule Take by [...] hemoglobin A1c goal of less than 7.0% ([facility]),Hypertriglycer idemia TAKE 1 TABLET BY MOUTH DAILY [...] mL 3 3 Active OneTouch Delica Plus [id number] Use as directed. To test blood sugar [...] (Pfizer) 06/05/2021,09/08/2020,08/12/2020 Pneumococcal Conjugate Vacci ne, 20-valent ([id number]) 05/23/2022 Pneumococcal Polysaccharide PPV23 (Pneumovax) 01/19/2021,10/04/2012 SEASONAL [...] 05/19/2023 3:20 PM EST Office Visit Endocrinology, [place] [address] [place] [address] Mehul Paul MD [address] [place] [address] 05/30/2023 2:30 PM EST Nutrition Services Nutrition & Weight Management, [facility] [address] [place] [address] Arianna Rivera RDN [address] [place] [address] 06/09/2023 9:40 AM EST Office Visit [facility] [address] Raman Monteiro III, MD 200 [facility] [place] [address] 07/11/2023 11:20 AM EST Nutrition Services Nutrition & Weight Management, [facility] [address] [place] [address] Arianna Rivera RDN 132 [facility] [place] [address] 08/15/2023 11:20 AM EST Nutrition Services Nutrition & Weight Management, [facility] [address] [place] [address] Arianna Rivera RDN 132 [facility] [place] [address] 09/12/2023 11:20 AM EDT Nutrition Services Nutrition & Weight Management, [facility] 132 [facility] [place] [address] Arianna Rivera RDN 132 [place] [address] 10/12/2023 11:00 AM EDT Office Visit Dermatology [facility] 200 [facility] [place] [address] Elizabeth Magaña MD 200 [facility] [place], [place] [address] 02/13/2024 10:00 AM EDT Office Visit Sleep Disorders Ctr [facility] 132 [facility] [place] [phone] Ankita Mckeon CRNP 132 [facility] [place] [address] Health Maintenance Due Date Last Done Comments [...] filedocumented as of this encounter Care Teams Cafe Assistant Relationship Specialty Start Date End Date Raman Monteiro III, MD [address] [place] [address] PCP - General 10/10/02 documented as of this encounter
--- OUTSIDE RECORDS SUMMARY | 2023-06-16 14:11 | External Medical Summary | Summary of Care ---
Author Name Unknown Organization [facility] Address [address] [place] [address] Phone [phone] Care Team Providers Care Ad Trafficker Name Role Phone Cayteano CAT MD, Raman Durant Primary Care Provider [phone] Reason for Visit * Reason Comments eRx-Medication Refill Encounter Details Date Type Department Care Team (Late st Contact Info) Description 05/15/2023 Refill Family Practice [facility] [address] [place] [address] Raman Monteiro III, MD 200 [place] [address] Alopecia; High triglycerides Allergies No known active allergiesdocumented as of this encounter (statuses as of 05/16/2023) Medications Medication Sig Dispensed Refills Start Date [...] Information Patient not taking.Reported on 03/07/2023 Mini [place]-3 Burp-Less 540 MG Oral Capsule Take by [...] 3 Active Jardiance 25 MG Oral Tablet (Empagliflozin)Gail [...] mL 3 3 Active OneTouch Delica Plus [id number] Use as directed. To test blood sugar 4x daily. 400 Each 3 3 Active metFORMIN HCl 1000 MG Oral Tablet (Glucophage)Indicat ions:Type 2 diabetes mellitus with hemoglobin A1c goal of less than 7.0% (HCC) Take 1 Tablet by mouth in the morning and 1 Tablet before bedtime. With meals.. 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 documented as of this encounter (statuses as of 05/16/2023) Immunizations Name Administration Dates Next Due COVID-19 mRNA, LNP-s, No Pre serve, 2-Dose Series (Hidden Radio) 06/05/2021,09/08/2020,08/12/2020 Pneumococcal Conjugate Vacci ne, 20-valent ([id number]) 05/23/2022 Pneumococcal Polysaccharide PPV23 (Pneumovax) 01/19/2021,10/04/2012 SEASONAL [...] encounter Miscellaneous Notes * Telephone Encounter - Becky Mckinley [facility] - 05/16/2023 7:48 AM EST Refused Prescriptions: Disp Refills Finasteride 1 MG Oral Tablet 90 Tab*2 Sig: TAKE ONE TABLET BY MOUTH EVERY MORNINGRefused By: Tricia POWELL for Refusal: Duplicate Request documented in this encounter Plan of Treatment Upcoming Encounters Date Type Department Care Team (Late st Contact Info) Description 05/19/2023 3:20 PM EST Office Visit Endocrinology, [place] [address] [place] [address] Mehul Paul MD [address] [place] [address] 05/30/2023 2:30 PM EST Nutrition Services Nutrition & Weight Management, [facility] [address] [place] [address] Arianna Rivera RDN [address] [place] [address] 06/09/2023 9:40 AM EST Office Visit Family [facility] 200 [facility] [place] [address] Raman Monteiro III, MD 200 [facility] [place] [address] 07/11/2023 11:20 AM EST Nutrition Services Nutrition & Weight Management, [facility] [address] [place] [address] Arianna Rivera RDN [address] [place] [address] 08/15/2023 11:20 AM EST Nutrition Services Nutrition & Weight Management, [facility] [address] [place] [address] Arianna Rivera RDN [address] [place] [address] 09/12/2023 11:20 AM EDT Nutrition Services Nutrition & Weight Management, [facility] [address] [place] [address] Arianna Rivera RDN [address] [place] [address] 10/12/2023 11:00 AM EDT Office Visit Dermatology [facility] [place] 200 [facility] [place], [place] [address] Elizabeth Magaña MD 200 [facility] [address] 02/13/2024 10:00 AM EDT Office Visit Sleep Disorders Ctr [facility] [place] [address] [place] [phone] Ankita Mckeon CRNP [address] [place] [address] Health Maintenance Due Date Last Done Comments [...] as of this encounter Visit Diagnoses Diagnosis Alopecia Alopecia, unspecified High triglycerides Pure hyperglyceridemia documented in this encounter Care Teams Ad Trafficker Relationship Specialty Start Date End Date Raman Monteiro III, MD 200 [facility] [place] [address] PCP - General 10/10/02 documented as of this encounter
--- OUTSIDE RECORDS SUMMARY | 2023-06-16 14:11 | External Medical Summary | Summary of Care ---
Author Name Unknown Organization [facility] Address [address] [place] [address] Phone [phone] Care Team Providers Care Warehouser Name Role Phone Cayetano CAT MD, Raman Durant Primary Care Provider [phone] Encounter Details Date Type Department Care Team (Late st Contact Info) Description 05/03/2023 11:40 AM EST Immunization Ancillary [facility] 200 [place] [address] Sp, Flu Shot Clinic 200 [place] [address] Arrived Allergies No known active allergiesdocumented as [...] Information Patient not taking.Reported on 03/07/2023 Mini [place]-3 Burp-Less 540 MG Oral Capsule Take by [...] hemoglobin A1c goal of less than 7.0% ([facility]),Hypertriglycer idemia TAKE 1 TABLET BY MOUTH DAILY [...] mL 3 3 Active OneTouch Delica Plus [id number] Use as directed. To test blood sugar [...] (Pfizer) 06/05/2021,09/08/2020,08/12/2020 Pneumococcal Conjugate Vacci ne, 20-valent ([id number]) 05/23/2022 Pneumococcal Polysaccharide PPV23 (Pneumovax) 01/19/2021,10/04/2012 SEASONAL [...] 05/19/2023 3:20 PM EST Office Visit Endocrinology, [place] [address] [place] [address] Mehul Paul MD [address] [place] [address] 05/30/2023 2:30 PM EST Nutrition Services Nutrition & Weight Management, [facility] [address] [address] Arianna Rivera RDN [address] [address] 06/09/2023 9:40 AM EST Office Visit [facility] Practice [facility] [address] Raman Monteiro III, MD 200 [facility] [place] [address] 07/11/2023 11:20 AM EST Nutrition Services Nutrition & Weight Management, [facility] [address] [place] [address] Arianna Rivera RDN 132 [facility] [place] [address] 08/15/2023 11:20 AM EST Nutrition Services Nutrition & Weight Management, [facility] [address] [place] [address] Arianna Rivera RDN 132 [place] [address] 09/12/2023 11:20 AM EDT Nutrition Services Nutrition & Weight Management, [facility] 132 [facility] [place] [address] Arianna Rivera RDN 132 [place] [address] 10/12/2023 11:00 AM EDT Office Visit Dermatology [facility] 200 [facility] [address] Elizabeth Magaña MD 200 [facility] [place], [place] [address] 02/13/2024 10:00 AM EDT Office Visit Sleep Disorders Ctr [facility] 132 [facility] [place] [phone] Ankita Mckeon CRNP 132 [facility] [place] [address] Health Maintenance Due Date Last Done Comments [...] filedocumented as of this encounter Care Teams Warehouser Relationship Specialty Start Date End Date Raman Monteiro III, MD [address] [place] [address] PCP - General 10/10/02 documented as of this encounter
--- OUTSIDE RECORDS SUMMARY | 2023-06-16 14:11 | External Medical Summary | Summary of Care ---
Author Name Unknown Organization [facility] Address [address] [place] [address] Phone [phone] Care Team Providers Care Protective Signal Superintendent Name Role Phone Cayetano CAT MD, Raman Durant Primary Care Provider [phone] Reason for Visit * Reason Onset Date Comments Appointment 02/09/2023 Encounter Details Date Type Department Care Team (Late st Contact Info) Description 02/09/2023 Telephone Dermatology [facility] [address] [place] [address] Services, Scheduling [address] [place] [address] Appointment Allergies No known active allergiesdocumented as of this encounter (statuses as of 05/11/2023) Medications Medication Sig Dispensed Refills Start Date End Date Status Cholecalciferol (VITAMIN D3) 2000 UNITS CapsuleIndications :3 times a week Take 1 Capsule by mouth in the morning. 90 Cap 1 11/06/19 15 Active Coenzyme Q10 (CO Q 10) 100 MG CAPS Take 200 mg of opiate by mouth. 0 Active aspirin enteric coated 81 MG TBEC Take 1 Tab by mouth daily. 100 Tab 3 03/09/20 17 Active Calcium Carbonate Antacid 420 MG Oral Tablet ChewableIndication s:as needed Indications: as needed 0 Active vitamin [...] Information Patient not taking.Reported on 03/07/2023 Mini [place]-3 Burp-Less 540 MG Oral Capsule Take by mouth . 0 Active Triamcinolone Acetonide 0.1 % External Cream (Aristocort)Indica tions:Rash Apply topically to affected area 2 times a day as needed for Itching (rash). To affected area on torso, arms, etc. As needed. 60 g 2 09/24/19 23 Active Finasteride 1 MG Oral TabletIndications: Alopecia,High triglycerides TAKE ONE TABLET BY MOUTH EVERY MORNING 90 Tablet 2 10/12/19 23 Active Fluticasone Propionate 50 MCG/ACT Nasal Suspension (Flonase) ADMINISTER 2 SPRAYS INTO EACH NOSTRIL 2 TIMES A DAY. 48 mL 2 11/01/19 23 Active Lisinopril 10 MG Oral Tablet (Prinivil)Indicati ons:Type 2 diabetes mellitus with hemoglobin A1c goal of less than 7.0% (HCC),Hypertriglyc eridemia TAKE 1 TABLET BY MOUTH DAILY IN THE MORNING 90 Tablet 2 01/18/20 23 Active BD Pen Needle Micro U/F 32G X 6 MM (NOVOFINE 32G PEN NEEDLE) USE 1 NEEDLE FOR BASAGLAR INJECTION AND 1 ADDITIONAL NEEDLE WEEKLY FOR MOUNJARO INJECTION (TOTAL OF 8 NEEDLES WEEKLY) 100 Each 3 02/03/20 23 Active CPAP every night at bedtime. Autopap 6-15 cm 0 Active OneTouch Delica Plus Guhvoq84U Use as directed. To test blood sugar 4x daily. 400 Each 3 07/08/19 22 023 Discontinued(Re fill) traMADol HCl 50 MG Oral Tablet (Ultram)Indication s:Chronic right-sided low back pain without sciatica Take by mouth 1 Tablet every 8 hours as needed for Pain, Moderate or Pain, Severe. 40 Tablet 1 12/30/19 22 023 Discontinued Insulin Glargine Solostar 100 UNIT/ML Subcutaneous Solution Pen-injector (Basaglar KwikPen)Indication s:Type 2 diabetes mellitus with hemoglobin A1c goal of less than 7.0% (HCC) INJECT 50 UNITS SUBCUTANEOUSLY DAILY; INCREASE 1 UNIT DAILY IN THE MORNING FOR SUGAR OVER 120. 45 mL 3 06/03/20 22 023 Discontinued metFORMIN HCl 1000 MG Oral Tablet (Glucophage)Indica tions:Type 2 diabetes mellitus with hemoglobin A1c goal of less than 7.0% (HCC) TAKE 1 TABLET TWICE DAILY WITH MEALS 180 Tablet 3 06/03/20 22 023 Discontinued(Re fill) Rosuvastatin Calcium 20 MG Oral Tablet (Crestor)Indicatio ns:Hypertriglyceri demia TAKE 1 TABLET BY MOUTH DAILY. 90 Tablet 3 06/03/20 22 023 Discontinued Jardiance 25 MG Oral Tablet (Empagliflozin)Ind ications:Type 2 diabetes mellitus with hemoglobin A1c goal of less than 7.0% (HCC) TAKE 1 TABLET BY MOUTH DAILY. 90 Tablet 3 06/03/20 22 023 Discontinued Fenofibrate Micronized 134 MG Oral CapsuleIndications :Hypertriglyceride allie TAKE 1 CAPSULE BY MOUTH DAILY 90 Capsule 3 06/03/20 22 023 Discontinued OneTouch Verio In Vitro Strip (Glucose Blood)Indications: Type 2 diabetes mellitus with hemoglobin A1c goal of less than 7.0% (HCC),Hypertriglyc eridemia USE UP TO 4 TIMES DAILY. DX: E11.9 400 Strip 3 06/03/20 22 023 Discontinued Mounjaro 5 MG/0.5ML Subcutaneous Solution Pen-injector (Tirzepatide) Inject 5 mg under the skin once a week. After using 0.25 mg once a week for 4 weeks Do not start before December 09, 2022. 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 documented as of this encounter (statuses as of 05/11/2023) Immunizations Name Administration Dates Next Due COVID-19 mRNA, LNP-s, No Pre serve, 2-Dose Series (Workshare) 06/05/2021,09/08/2020,08/12/2020 Pneumococcal Conjugate Vacci ne, 20-valent ([id number]) 05/23/2022 Pneumococcal Polysaccharide PPV23 (Pneumovax) 01/19/2021,10/04/2012 SEASONAL INFLUENZA, PF, 6 M & Above, IM , (FLULAVAL or FLUZONE) 04/22/2019,04/06/2017 Season Influenza, Cell Culte r, 18+ Yrs, With Preserv (Flucelvax) 04/24/2013 Season Influenza, Quad, PF, Adjuvanted, 65+ Yrs, IM (FLUAD) 04/14/2020 Seasonal Influenza, Quadriva lent Hd (Fluzone Hd) 04/28/2022,05/03/2021 Seasonal Influenza, Quadriva lent, No Preserve, IM [...] encounter Miscellaneous Notes * Telephone Encounter - Lisa Haque [facility] - 02/15/2023 11:06 AM EDT Called patient, left message that Dr. Magaña got a cancellation for tomorrow, February 16 at 9:30 am. Asked pt to call back if he can come to this appointment. * Telephone Encounter - Lisa Haque [facility] - 02/13/2023 4:27 PM EDT Called patient, left message to return call. May offer sooner appointment with Dr. Pittman or patient may schedule next available with Dr. Magaña and be placed on the wait list. * Telephone Encounter - Amanda Graves [facility] - 02/09/2023 8:43 AM EDT Addi Pt has spots needing eval. Wants to see Dr Magaña. Please assist Thanks documented in this encounter Plan of Treatment Upcoming Encounters Date Type Department Care Team (Late st Contact Info) Description 05/19/2023 3:20 PM EST Office Visit Endocrinology, [place] [address] [place] [address] Mehul Paul MD [address] [place] [address] 05/30/2023 2:30 PM EST Nutrition Services Nutrition & Weight Management, [facility] [address] [place] [address] Arianna Rivera RDN 132 [facility] [place] [address] 06/09/2023 9:40 AM EST Office Visit Family Practice [facility] 200 [facility] [place] [address] Raman Monteiro III, MD 200 [facility] [place] [address] 07/11/2023 11:20 AM EST Nutrition Services Nutrition & Weight Management, [facility] [address] [place] [address] Arianna Rivera RDN [address] [place] [address] 08/15/2023 11:20 AM EST Nutrition Services Nutrition & Weight Management, [facility] [address] [place] [address] Arianna Rivera RDN [address] [place] [address] 09/12/2023 11:20 AM EDT Nutrition Services Nutrition & Weight Management, [facility] [address] [place] [address] Arianna Rivera RDN [address] [place] [address] 10/12/2023 11:00 AM EDT Office Visit Dermatology [facility] [address] [place] [address] Elizabeth Magaña MD [address] [place] [address] 02/13/2024 10:00 AM EDT Office Visit Sleep Disorders Ctr [facility] [address] [place] [phone] Ankita Mckeon CRNP [address] [place] [address] Health Maintenance Due Date Last Done Comments [...] filedocumented as of this encounter Care Teams Protective Signal Superintendent Relationship Specialty Start Date End Date Raman Monteiro III, MD 200 [place] [address] PCP - General 10/10/02 documented as of this encounter
--- OUTSIDE RECORDS SUMMARY | 2023-06-16 14:11 | External Medical Summary | Summary of Care ---
Author Name Unknown Organization [facility] Address [address] [place] [address] Phone [phone] Care Team Providers Care Swim Coach Name Role Phone Cayetano CAT MD, Grace Durant Primary Care Provider [phone] Reason for Visit * Reason Onset Date Comments Medication Refill 05/15/2023 Encounter Details Date Type Department Care Team (Late st Contact Info) Description 05/15/2023 Refill Family Practice [facility] 200 [facility] [place] [address] Grace Lynch III, MD 200 [place] [address] Alopecia; High triglycerides Allergies No known active [...] Information Patient not taking.Reported on 03/07/2023 Mini [place]-3 Burp-Less 540 MG Oral Capsule Take by [...] mL 3 3 Active OneTouch Delica Plus [id number] Use as directed. To test blood sugar [...] the morning.. 90 Tablet 1 3 Active Finasteride 1 MG Oral TabletIndications:A [...] mRNA, LNP-s, No Pre serve, 2-Dose Series (Playsino) 06/05/2021,09/08/2020,08/12/2020 Pneumococcal Conjugate Vacci ne, 20-valent ([id number]) 05/23/2022 Pneumococcal Polysaccharide PPV23 (Pneumovax) 01/19/2021,10/04/2012 SEASONAL [...] encounter Miscellaneous Notes * Telephone Encounter - Jc Lopez [facility] - 05/16/2023 7:47 AM ESTSigned Prescriptions: Disp Refills Finasteride 1 MG Oral Tablet 90 Tab*1 Sig: Take 1 Tablet by mouth in the morning. In the morning..Authorizing Provider: GRACE LYNCH III User: FAY LOPEZ documented in this encounter Plan of Treatment Upcoming Encounters Date Type Department Care Team (Late st Contact Info) Description 05/19/2023 3:20 PM EST Office Visit Endocrinology, [place] [address] [place] [address] Mehul Paul MD [address] [place] [address] 05/30/2023 2:30 PM EST Nutrition Services Nutrition & Weight Management, [facility] [address] [place] [address] Arianna Rivera RDN 132 [facility] [place] [address] 06/09/2023 9:40 AM EST Office Visit Family Practice [facility] 200 [place] [address] Grace Lynch III, MD 200 [place] [address] 07/11/2023 11:20 AM EST Nutrition Services Nutrition & Weight Management, [facility] 132 [facility] [place] [address] Arianna Rivera RDN [address] [place] [address] 08/15/2023 11:20 AM EST Nutrition Services Nutrition & Weight Management, [facility] [address] [place] [address] Arianna Rivera RDN [address] [place] [address] 09/12/2023 11:20 AM EDT Nutrition Services Nutrition & Weight Management, [facility] 132 [facility] [place] [address] Arianna Rivera RDN [address] [place] [address] 10/12/2023 11:00 AM EDT Office Visit Dermatology [facility] 200 [facility] [place] [facility] [place] [address] Elizabeth Magaña MD 200 [facility] [place] [address] 02/13/2024 10:00 AM EDT Office Visit Sleep Disorders Ctr [facility] [address] [place] [phone] Ankita Mckeon CRNP [address] [place] [address] Health Maintenance Due Date Last Done Comments [...] hyperglyceridemia documented in this encounter Care Teams Swim Coach Relationship Specialty Start Date End Date Grace Lynch III, MD 200 [facility] [place] [facility] [place] [address] PCP - General 10/10/02 documented as of this encounter
--- OUTSIDE RECORDS SUMMARY | 2023-06-16 14:11 | External Medical Summary ---
Author Name Unknown Address Unknown Organization K01:[facility] [place] [address] [place] [id number] Laboratory Report Ordering Provider Test Date Status SYED EDWARDS III 05/08/2023 12:08:56 Final Observation Date Value Abnormality Reference (Units ) Status HbA1C 05/08/2023 12:08:56 6.8 Above high normal 4. 0-5.6 (%) Final The use of HbA1c to monitor glycemic status is based on normal hemoglobin and HbA composition. This test should not be used in patients with abnormal hemoglobin that affects the half life of the red blood cell or the in vivo glycation rates. Glucose, estimated average 05/08/2023 12:08:56 148 Above high normal <126 (mg/dL) Trung vargas Performing Location [facility] [place] [facility] [address]
--- OUTSIDE RECORDS SUMMARY | 2023-06-16 14:11 | External Medical Summary | Summary of Care ---
Author Name Unknown Organization [facility] Address [address] [place] [address] Phone [phone] Care Team Providers Care Construction Electrician Name Role Phone Cayetano CAT MD, Raman Durant Primary Care Provider [phone] Reason for Visit * Reason Comments Outpatient Testing Encounter Details Date Type Department Care Team (Late st Contact Info) Description 05/08/2023 1:20 PM EST Laboratory Laboratory [facility] [address] [place] [phone] [facility] Lab [facility] [address] [facility] [address] Type 2 diabetes mellitus with hemoglobin A1c goal of less than 7.0% ([facility]) Allergies No known active allergiesdocumented as of this encounter (statuses as of 05/08/2023) Medications Medication Sig Dispensed Refills Start Date [...] Information Patient not taking.Reported on 03/07/2023 Mini [place]-3 Burp-Less 540 MG Oral Capsule Take by [...] mL 3 3 Active OneTouch Delica Plus [id number] Use as directed. To test blood sugar 4x daily. 400 Each 3 3 Active metFORMIN HCl 1000 MG Oral Tablet (Glucophage)Indicati ons:Type 2 diabetes mellitus with hemoglobin A1c goal of less than 7.0% (HCC) Take 1 Tablet by mouth in the morning and 1 Tablet before bedtime. With meals.. 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 documented as of this encounter (statuses as of 05/08/2023) Immunizations Name Administration Dates Next Due COVID-19 mRNA, LNP-s, No Pre serve, 2-Dose Series ([id number]) 06/05/2021,09/08/2020,08/12/2020 Pneumococcal Conjugate Vacci ne, 20-valent ([id number]) 05/23/2022 Pneumococcal Polysaccharide PPV23 (Pneumovax) 01/19/2021,10/04/2012 SEASONAL [...] 05/19/2023 3:20 PM EST Office Visit Endocrinology, [place] [address] [place] [address] Mehul Paul MD [address] [place] [facility] [place] [address] 05/30/2023 2:30 PM EST Nutrition Services Nutrition & Weight Management, [facility] [address] [place] [address] Arianna Rivera RDN [address] [place] [address] 06/09/2023 9:40 AM EST Office Visit Family Practice [place], [place] 200 [facility] [place], [place] [address] Raman Monteiro III, MD 200 [facility] [place] [address] 07/11/2023 11:20 AM EST Nutrition Services Nutrition & Weight Management, [facility] [address] [facility] [place] [address] Arianna Rivera RDN [address] [facility] [place] [address] 08/15/2023 11:20 AM EST Nutrition Services Nutrition & Weight Management, [facility] [address] [facility] [place] [address] Arianna Rivera RDN [address] [place] [address] 09/12/2023 11:20 AM EDT Nutrition Services Nutrition & Weight Management, [facility] [address] [place] [address] Arianna Rivera RDN [address] [place] [address] 10/12/2023 11:00 AM EDT Office Visit Dermatology [facility] 200 [facility] [place] [address] Elizabeth Mgaaña MD 200 [facility] [place], [place] [address] 02/13/2024 10:00 AM EDT Office Visit Sleep Disorders Ctr [facility] [address] [facility] [place] [phone] Ankita Mckeon CRNP [address] [place] [address] Pending Results Name Type Priority Associated Diagnoses Date /Time HEMOGLOBIN A1C Lab Routine Type 2 diabetes mellitus with hemoglobin A1c goal of less than 7.0% ([facility]) 05/08/2023 12:08 PM EST Health Maintenance Due Date Last Done Comments [...] than 7.0% (HCC) documented in this encounter Care Teams Construction Electrician Relationship Specialty Start Date End Date Raman Monteiro III, MD [address] [place] [address] PCP - General 10/10/02 documented as of this encounter
--- OUTSIDE RECORDS SUMMARY | 2023-06-16 14:12 | External Medical Summary | Summary of Care ---
Author Name Unknown Organization [facility] Address [address] [place] [address] Phone [phone] Care Team Providers Care Electrician Front Name Role Phone Cayetano CAT MD, Raman Durant Primary Care Provider [phone] Encounter Details Date Type Department Care Team Description 02/07/2023 Telephone Pulmonary Medicine, [facility] [address] [facility] [place] [address] Ankita Mckeon CRNP [address] [facility] [place] [address] Allergies No known active allergiesdocumented as of this encounter (statuses as of 02/07/2023) Medications Medication Sig Dispensed Refills Start Date [...] by mouth. 1200 mg daily 0 Active My Pick BoxTouch Verio Reflect w/Device Kit Use as directed. [...] mouth. 2-3 times a week 0 Active OneTouch Delica Plus [id number] Use as directed. To test blood sugar 4x daily. 400 Each 3 2 Active Plenity Oral Capsule Take by mouth 3 Capsules 2 times a day 30 minutes before morning and evening meals . Take 16 oz of water 20 minutes later 100 Capsule 8 2 Active Mini [place]-3 Burp-Less 540 MG Oral Capsule Take by mouth . 0 Active traMADol HCl 50 MG Oral Tablet (Ultram)Indications: Chronic right-sided low back pain without sciatica Take by mouth 1 Tablet every 8 hours as needed for Pain, Moderate or Pain, Severe. 40 Tablet 1 2 Active Insulin Glargine Solostar 100 UNIT/ML Subcutaneous Solution Pen-injector (Basaglar KwikPen)Indications: Type 2 diabetes mellitus with hemoglobin A1c goal of less than 7.0% (HCC) INJECT 50 UNITS SUBCUTANEOUSLY DAILY; INCREASE 1 UNIT DAILY IN THE MORNING FOR SUGAR OVER 120. 45 mL 3 2 Active metFORMIN HCl 1000 MG Oral Tablet (Glucophage)Indicati ons:Type 2 diabetes mellitus with hemoglobin A1c goal of less than 7.0% (HCC) TAKE 1 TABLET TWICE DAILY WITH MEALS 180 Tablet 3 2 Active Rosuvastatin Calcium 20 MG Oral Tablet (Crestor)Indications :Hypertriglyceridemi a TAKE 1 TABLET BY MOUTH DAILY. 90 Tablet 3 2 Active Jardiance 25 MG Oral Tablet (Empagliflozin)Indic ations:Type 2 diabetes mellitus with hemoglobin A1c goal of less than 7.0% (HCC) TAKE 1 TABLET BY MOUTH DAILY. 90 Tablet 3 2 Active Fenofibrate Micronized 134 MG Oral CapsuleIndications:H ypertriglyceridemia TAKE 1 CAPSULE BY MOUTH DAILY 90 Capsule 3 2 Active OneTouch Verio In Vitro Strip (Glucose Blood)Indications:Ty pe 2 diabetes mellitus with hemoglobin A1c goal of less than 7.0% (HCC),Hypertriglycer idemia USE UP TO 4 TIMES DAILY. DX: E11.9 400 Strip 3 2 Active Triamcinolone Acetonide 0.1 % External Cream [...] A DAY. 48 mL 2 3 Active Mounjaro 5 MG/0.5ML Subcutaneous Solution Pen-injector (Tirzepatide) Inject 5 mg under the skin once a week. After using 0.25 mg once a week for 4 weeks Do not start before December 09, 2022. 2 mL 3 3 12/09/19 24 Active Lisinopril 10 MG Oral Tablet (Prinivil)Indication [...] at bedtime. Autopap 6-15 cm 0 Active documented as of this encounter (statuses as of 02/07/2023) Active Problems Problem Noted Date History of nonmelanoma skin cancer 02/13 Overview: BCC left lateral canthus 07/02 Obesity, Class I, BMI 30.0-34.9 (see act ual BMI) 05/08/2017 Excessive weight gain 05/08/2017 Current use of insulin 05/08/2017 Hypertriglyceridemia 01/30/2014 Obesity (BMI 30.0-34.9) 11/13/2011 MICROLBUMINURIA 11/13/2011 Type 2 diabetes mellitus with hemoglobin A1c [...] as of this encounter (statuses as of 02/07/2023) Resolved Problems Problem Noted Date Resolved Date DM type 2, not at goal 12/15/2010 8 Obesity, Class II, BMI 35-39.9, isolated (see ac tual BMI) 11/30/2009 09/11/2013 Overview: Per Obesity Protocol, #19 trauma 12/25/2008 12/25/2008 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 documented as of this encounter (statuses as of 02/07/2023) Immunizations Name Administration Dates Next Due COVID-19 mRNA, LNP-s, No Pre serve, 2-Dose Series (Pfizer) 06/05/2021,09/08/2020,08/12/2020 Pneumococcal Conjugate Vacci ne, 20-valent ([id number]) 05/23/2022 Pneumococcal Polysaccharide PPV23 (Pneumovax) 01/19/2021,10/04/2012 Season Influenza, Cell Culte r, 18+ Yrs, With Preserv (Flucelvax) 04/24/2013 Season Influenza, Quad, PF, Adjuvanted, 65+ Yrs, IM (FLUAD) 04/14/2020 Seasonal Influenza, PF, 6 mo ns & Above, IM , (Flulaval) 04/22/2019,04/06/2017 Seasonal Influenza, Quadriva lent Hd (Fluzone [...] Rare-every 4 months-1-2 beer at a time Sex Assigned at Date Recorded Not on file Job Start Date Occupation Industry Not on file Not on file Not on file documented as of this encounter Miscellaneous Notes * Telephone Encounter - Faisal Brady - 02/07/2023 12:08 PM EDT Orders in 02/07 documented in this encounter Plan of Treatment Upcoming Encounters Date Type Specialty Care Team Description 03/07/2023 Nutrition Services Gastroenterology Arianna Rivera RDN [address] [place] [address] 04/04/2023 Nutrition Services Gastroenterology Arianna Rivera RDN [address] [place] [address] 05/02/2023 Nutrition Services Gastroenterology Arianna Rivera RDN [address] [place] [address] 05/19/2023 Office Visit Endocrinology Mehul Paul MD [address] [place] [address] 05/30/2023 Nutrition Services Gastroenterology Arianna Rivera RDN [address] [place] [address] 06/09/2023 Office Visit Family Medicine Cayetano IIIRaman MD 200 [facility] [place] [address] 10/12/2023 Office Visit Dermatology Elizabeth Magaña MD 200 [facility] [place], [place] [address] 02/13/2024 Office Visit Sleep Disorders Ankita Mckeon CRNP [address] [place] [address] Health Maintenance Due Date Last Done Comments Zoster Vaccines (1 of 2) 2005 Depression Screening, Annual for Pts 12 and Over 08/15/2019 08/15/2018 DIABETES-FOOT EXAM 06/30/2021 06/30/2020, 1 07/01/2018, 02/20/2018, Additional history exists COVID-19 Vaccine (4 - Pfizer series) 07/31/2021 06/05/2021, 09/08/2020, 08/12/2020 DIABETES-EYE EXAM 01/19/2022 01/19/2021, , 05/18/2018, Additional history exists Influenza Vaccine (FLU shot) (#1) 2023 04/28/2022, 05/03/2021, 04/14/2020, Additional history exists HbA1c 05/18/2023 11/15/2022, 09/17, 07/05/2021, Additional history exists Albumin/Creatinine Ratio 11/16/20232 023, 07/08/2021, 08/03/2017, Additional history exists GFR 11/16/2023 11/15/2022, 12/17, 04/27/2019, Additional history exists COLONOSCOPY-EVERY 3 YRS AGES 18-100 04/13/2024 04/13/2021, 04/13/2021, 05/25/2017, Additional history exists Lipid Panel 11/16/2027 11/15/2022, 12/17, 08/15/2018, Additional history exists DTaP,Tdap,and Td Vaccines (3 - Td or Tdap) 06/30/2030 06/30/2020, 07/07/2008 Pneumococcal Vaccine: 65+ Years Completed 05/23/2022, 01/19/2021, 10/04/2012 GARDASIL-HPV IMMUNIZATION SERIES Aged Out No longer eligible based on patient's age to complete this topic Hepatitis B Aged Out No longer eligi ble based on patient's age to complete this topic MENINGOCOCCAL (MENACTRA/MENVEO) Aged Out No longer eligible based on patient's age to complete this topic documented as of this encounter Medical Devices Not on filedocumented as of this encounter Care Teams Electrician Front Relationship Specialty Start Date End Date Raman Monteiro III, MD [address] [place] [address], [place] [address] PCP - General 10/10/02 documented as of this encounter
--- OUTSIDE RECORDS SUMMARY | 2023-06-16 14:12 | External Medical Summary | Summary of Care ---
Author Name Unknown Organization [facility] Address [address] [place] [address] Phone [phone] Care Team Providers Care Executive Associate Name Role Phone Cayetano CAT MD, Raman Durant Primary Care Provider [phone] Reason for Visit * Reason Onset Date Comments Medication Refill 04/11/2023 Encounter Details Date Type Department Care Team (Late st Contact Info) Description 04/11/2023 Refill Family Practice [facility] [address] [facility] [place] [address] Raman Monteiro III, MD 200 [place] [address] Chronic right-sided low back pain without sciatica Allergies No known active allergiesdocumented as of this encounter (statuses as of 04/11/2023) Medications Medication Sig Dispensed Refills Start Date [...] a week 0 Active OneTouch Delica Plus [id number] Use as directed. To test blood sugar 4x daily. 400 Each 3 2 Active Plenity Oral Capsule Take by mouth 3 Capsules 2 times a day 30 minutes before morning and evening meals . Take 16 oz of water 20 minutes later 100 Capsule 8 2 Active Additional Information Patient not taking.Reported on 03/07/2023 Mini [place]-3 Burp-Less 540 MG Oral Capsule Take by [...] at bedtime. Autopap 6-15 cm 0 Active Mounjaro 5 MG/0.5ML Subcutaneous Solution Pen-injector (Tirzepatide)Indicat ions:Type 2 diabetes mellitus with hemoglobin A1c goal of less than 7.0% (HCC) Inject 5 mg under the skin once a week. 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 documented as of this encounter (statuses as of 04/11/2023) Immunizations Name Administration Dates Next Due COVID-19 mRNA, LNP-s, No Pre serve, 2-Dose Series (Pfizer) 06/05/2021,09/08/2020,08/12/2020 Pneumococcal Conjugate Vacci ne, 20-valent ([id number]) 05/23/2022 Pneumococcal Polysaccharide PPV23 (Pneumovax) 01/19/2021,10/04/2012 SEASONAL [...] 4 months-1-2 beer at a time Sex and Gender Information Value Date Recorded Sex Assigned at Not on file Gender Identity Not on file Sexual Orientation Not on file Job Start Date Occupation Industry Not on file Not on file Not on file documented as of this encounter Miscellaneous Notes * Telephone Encounter - Theresa Garcia RPh - 04/11/2023 4:10 PM EDTRefused Prescriptions: Disp Refills traMADol HCl 50 MG Oral Tablet (Ultram) 40 Tab*1 Sig: Take 1 Tablet by mouth every 8 hours as needed for Pain, Moderate or Pain, Severe.Refused By: Gayle GARCIA for Refusal: Duplicate Request documented in this encounter Plan of Treatment Upcoming Encounters Date Type Department Care Team (Late st Contact Info) Description 05/02/2023 2:30 PM [facility] Nutrition Services Nutrition & Weight Management, [facility] [address] [place] [address] Arianna Rivera RDN [address] [place] [address] 05/19/2023 3:20 PM EST Office Visit Endocrinology, [facility] [address] [place] [address] Mehul Paul MD [address] [place] [address] 05/30/2023 2:30 PM EST Nutrition Services Nutrition & Weight Management, [facility] [address] [place] [address] Arianna Rivera RDN [address] [place] [address] 06/09/2023 9:40 AM EST Office Visit [facility] [address] [facility] [place] [address] Raman Monteiro III, MD [address] [facility] [place] [address] 07/11/2023 11:20 AM EST Nutrition Services Nutrition & Weight Management, [facility] [address] [place] [address] Arianna Rivera RDN [address] [place] [address] 08/15/2023 11:20 AM EST Nutrition Services Nutrition & Weight Management, [facility] [address] [place] [address] Arianna Rivera RDN [address] [place] [address] 09/12/2023 11:20 AM EDT Nutrition Services Nutrition & Weight Management, [facility] [address] [place] [address] Arianna Rivera RDN [address] [place] [address] 10/12/2023 11:00 AM EDT Office Visit Dermatology [facility] [address] [facility] [place] [address] Elizabeth Magaña MD [address] [facility] [place] [address] 02/13/2024 10:00 AM EDT Office Visit Sleep Disorders Ctr [facility] [address] [place] [phone] Ankita Mckeon CRNP [address] [place] [address] Health Maintenance Due Date Last Done Comments Zoster Vaccines (1 of 2) 2005 Hepatitis B (1 of 3 - Risk 3-dose series) 2015 Depression Screening 08/15/2019 08/15/2018 Diabetic Foot Exam 06/30/2021 06/30/2020, 1 07/01/2018, 02/20/2018, Additional history exists DIABETES-EYE EXAM 01/19/2022 01/19/2021, , 05/18/2018, Additional history exists COVID-19 Vaccine ( season) 2023 06/05/2021, 09/08/2020, 08/12/2020 Influenza Vaccine (FLU shot) (#1) 2023 04/28/2022, [...] as of this encounter Visit Diagnoses Diagnosis Chronic right-sided low back pain without sciatica documented in this encounter Care Teams Executive Associate Relationship Specialty Start Date End Date Raman Monteiro III, MD [address] [place] [address] PCP - General 10/10/02 documented as of this encounter
--- OUTSIDE RECORDS SUMMARY | 2023-06-16 14:12 | External Medical Summary | Summary of Care ---
Author Name Unknown Organization [facility] Address [address] [place] [address] Phone [phone] Care Team Providers Care Trim Master Operator Name Role Phone Cayetano CAT MD, Raman Durant Primary Care Provider [phone] Reason for Visit * Reason Comments Follow Up Encounter Details Date Type Department Care Team Description 02/07/2023 Office Visit [facility] [place] [address] Ankita Mckeon CRNP [address] [place] [address] APOORVA on CPAP* Allergies No known active allergiesdocumented as of [...] a week 0 Active OneTouch Delica Plus [id number] Use as directed. To test blood sugar 4x daily. 400 Each 3 2 Active Plenity Oral Capsule Take by mouth 3 Capsules 2 times a day 30 minutes before morning and evening meals . Take 16 oz of water 20 minutes later 100 Capsule 8 2 Active Mini Marion-3 Burp-Less 540 MG Oral Capsule Take by mouth . 0 Active traMADol HCl 50 MG Oral Tablet (Ultram)Indications :Chronic right-sided low back pain without sciatica Take by mouth 1 Tablet every 8 hours as needed for Pain, Moderate or Pain, Severe. 40 Tablet 1 2 Active Insulin Glargine Solostar 100 UNIT/ML Subcutaneous Solution Pen-injector (Basagldaniella Hidalgo)Indications :Type 2 diabetes mellitus with hemoglobin A1c [...] 2 Active Jardiance 25 MG Oral Tablet (Empagliflozin)Gail cations:Type 2 diabetes mellitus with hemoglobin A1c goal of less than 7.0% (HCC) TAKE 1 TABLET BY MOUTH DAILY. 90 Tablet 3 2 Active Fenofibrate Micronized 134 MG Oral CapsuleIndications: Hypertriglyceridemi a TAKE 1 CAPSULE BY MOUTH DAILY 90 Capsule 3 2 Active OneTouch Verio In Vitro Strip (Glucose Blood)Indications:T ype 2 diabetes mellitus with hemoglobin A1c goal of less than 7.0% (HCC),Hypertriglyce ridemia USE UP TO 4 TIMES DAILY. DX: E11.9 400 Strip 3 2 Active Triamcinolone Acetonide 0.1 % External Cream (Aristocort)Indicat ions:Rash Apply topically to affected area 2 times a day as needed for Itching (rash). To affected area on torso, arms, etc. As needed. 60 g 2 3 Active Finasteride 1 MG Oral TabletIndications:A [...] 24 Active Lisinopril 10 MG Oral Tablet (Prinivil)Indicatio [...] at bedtime. Autopap 6-15 cm 0 Active Fish Oil 1000 MG Oral Capsule Take 1 Capsule by mouth in the morning. 0 02/08/20 23 Discontinu ed(Medicat ion List Clean Up) Mounjaro 2.5 MG/0.5ML Subcutaneous Solution Pen-injector (Tirzepatide) Inject 2.5 mg under the skin once a week. For 4 weeks. 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 documented as of this encounter (statuses as of 02/07/2023) Immunizations Name Administration Dates Next Due COVID-19 mRNA, LNP-s, No Pre serve, 2-Dose Series ([email or web address]) 06/05/2021,09/08/2020,08/12/2020 Pneumococcal Conjugate Vacci ne, 20-valent ([email or web address]) 05/23/2022 Pneumococcal Polysaccharide PPV23 (Pneumovax) 01/19/2021,10/04/2012 Season [...] Sign Reading Time Taken Comments Blood Pressure 122/64 02/07/2023 10:07 AM EDT Pulse 90 02/07/2023 10:07 AM EDT Temperature - - Respiratory Rate 16 02/07/2023 10:07 AM EDT Oxygen Saturation 94% 02/07/2023 10:07 AM EDT at rest rm air Inhaled Oxygen Concentration - - Weight 105.7 kg (233 lb) 02/07/2023 10:07 AM EDT Height 180.3 cm (5' 11") 02/07/2023 10:07 AM EDT Body Mass Index 32.5 02/07/2023 10:07 AM EDT documented in this encounter Patient Instructions * Patient Instructions* ИВАН Bower - 02/07/2023 11:04 AM EDT Continue use of CPAP/BIPAP to include all periods of sleep. Recommended total sleep time for adults is 7-9 hours. Reminder to clean CPAP/BIPAP supplies weekly and change supplies as needed. Work at making lifestyle changes to loss weight, as weight loss often results in improvement of sleep disordered breathing. Daily exercise has been shown to improve sleep quality. Avoid driving or engaging in any activity that requires full alertness if feeling sleepy, drowsy orotherwise impaired. documented in this encounter Progress Notes * ИВАН Bower - 02/07/2023 10:15 AM EDT [facility] Jon Rahman is a 67 year old male seen today for routine follow-up of APOORVA treated on aPAP. Lastclinic visit August 2020 at which time no changes were made in treatment. Sleep Testing/History: - PSG 10/17/2007 (wt 258 labs): AHI 10.5, SpO2 barbara 84% with 32 minutes <90%, 0 PLMI Interim History: CPAP used nightly with the exception of when he has a URI or when staying at his daughter's. Recently received a travel unit ([employer]) for use when he's away from home which has worked well. He denies tolerance issues related to treatment and notes ongoing benefit with PAP treatment. Total sleep time 5.5 - 7 hours most nights. He continues to use nasal decongestants as needed. 24 hour antihistamine taken qam and fluticasone propionate nasal spray sparingly. Compliance Data: Report date: last 30 days ending 02/06/2023 % total days used: 100 % days used > 4 hours: 97 Average hours per day used: 6 hours 36 mins Large leak: none rAHI: 2.9 3 nights with AHI >5 Pressures: mean 7.9, p90% 10.4 Equipment: DME Provider: [employer] Device: InHomeVest Settings: 6-15 cmH20 Interface Type: nasal Humidifier: not used Cleaning: By hand routinely EPWORTH SLEEPINESS SCALE: 3 Review of Systems Constitutional: Weight down 12 lbs with medication change after he had gained HENT: Positive for congestion. Respiratory: Negative for shortness of breath. Cardiovascular: Negative for chest pain. Neurological: Negative for headaches. 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.9 Type 2 diabetes mellitus with hemoglobin A1c goal of less than 7.0% ([facility]) E11.9 Chronic sinusitis J32.9 Chronic rhinitis J31.0 Sleep apnea G47.30 Hypertriglyceridemia E78.1 Obesity, Class I, BMI 30.0-34.9 (see actual BMI) E66.9 Excessive weight gain R63.5 Current use of insulin ([facility]) Z79.4 History of nonmelanoma skin cancer Z85.828 Current Medications: Outpatient Medications Marked as Taking for the 02/07/23 encounter (Office Visit) with ИВАН Álvarez Medication Sig CPAP every night at bedtime. Autopap 6-15 cm BD Pen Needle Micro U/F 32G X 6 MM (NOVOFINE 32G PEN NEEDLE) USE 1 NEEDLE FOR BASAGLAR INJECTION AND 1 ADDITIONAL NEEDLE WEEKLY FOR MOUNJARO INJECTION (TOTAL OF 8 NEEDLES WEEKLY) Lisinopril 10 MG Oral Tablet (Prinivil) TAKE 1 TABLET BY MOUTH DAILY IN THE MORNING Mounjaro 5 MG/0.5ML Subcutaneous Solution Pen-injector (Tirzepatide) Inject 5 mg under the skin once a week. After using 0.25 mg once a week for 4 weeks Do not start before December 09, 2022. Fluticasone Propionate 50 MCG/ACT Nasal Suspension (Flonase) ADMINISTER 2 SPRAYS INTO EACH NOSTRIL 2 TIMES A DAY. Finasteride 1 MG Oral Tablet TAKE ONE TABLET BY MOUTH EVERY MORNING Triamcinolone Acetonide 0.1 % External Cream (Aristocort) Apply topically to affected area 2 times a day as needed for Itching (rash). To affected area on torso, arms, etc. As needed. Fenofibrate Micronized 134 MG Oral Capsule TAKE 1 CAPSULE BY MOUTH DAILY Insulin Glargine Solostar 100 UNIT/ML Subcutaneous Solution Pen-injector (Basaglar KwikPen) INJECT 50 UNITS SUBCUTANEOUSLY DAILY; INCREASE 1 UNIT DAILY IN THE MORNING FOR SUGAR OVER 120. Jardiance 25 MG Oral Tablet (Empagliflozin) TAKE 1 TABLET BY MOUTH DAILY. metFORMIN HCl 1000 MG Oral Tablet (Glucophage) TAKE 1 TABLET TWICE DAILY WITH MEALS OneToPressi In Vitro Strip (Glucose Blood) USE UP TO 4 TIMES DAILY. DX: E11.9 Rosuvastatin Calcium 20 MG Oral Tablet (Crestor) TAKE 1 TABLET BY MOUTH DAILY. traMADol HCl 50 MG Oral Tablet (Ultram) Take by mouth 1 Tablet every 8 hours as needed for Pain, Moderate or Pain, Severe. Mini Marion-3 Burp-Less 540 MG Oral Capsule Take by mouth . Plenity Oral Capsule Take by mouth 3 Capsules 2 times a day 30 minutes before morning and evening meals . Take 16 oz of water 20 minutes later B-Complex Oral Tablet Take by mouth. 2-3 times a week Fly [employer] Plus [id number] Use as directed. To test blood sugar 4x daily. Levocetirizine Dihydrochloride 5 MG Oral Tablet Take 1 Tablet by mouth in the morning. Vitamin B-12 1000 MCG Oral Tablet Take 1 Tablet by mouth in the morning. Fluocinonide 0.05 % External Cream Apply to bug bites twice daily x 3-4 days as needed for itching. Fly MediaToPressi Reflect w/Device Kit Use as directed. To test blood sugar. Krill Oil (OMEGA-3) 500 MG CAPS Take by mouth. 1200 mg daily vitamin c (ASCORBIC ACID) 500 MG Tablet Take 6 Tablets by mouth in the morning. Calcium Carbonate Antacid 420 MG Oral Tablet Chewable Indications: as needed aspirin enteric coated 81 MG TBEC Take 1 Tab by mouth daily. Coenzyme Q10 (CO Q 10) 100 MG CAPS Take 200 mg of opiate by mouth. Cholecalciferol (VITAMIN D3) 2000 UNITS Capsule Take 1 Capsule by mouth in the morning. Physical Exam: BP 122/64 | Pulse 90 | Resp 16 | Ht 1.803 m (5' 11") | Wt 105.7 kg (233 lb) | SpO2 94% Comment: at rest rm air | BMI 32.50 kg/m | BSA 2.3 m Constitutional: Alert, oriented and in no acute distress Skin: No abnormal mask markings on face Cardio: Regular rate and rhythm, no murmur Chest: Normal respiratory effort at rest, equal breath sounds, clear to auscultation anterior pastrana Neuro: Fluent speech, follows commands without issue Psych: Appropriate mood and affect. Assessment & Plan: Encounter Diagnoses Name Primary? APOORVA on CPAP Yes Mild obstructive sleep apnea based on AHI criteria associated with hypoxemia. He is compliant, therapeutic and benefiting with PAP treatment. Change to aPAP 7-15 cm H2O. Mouth leak may be occurring in times of increased congestion. Restart flonase nightly. Patient Instructions Continue use of CPAP/BIPAP to include all periods of sleep. Recommended total sleep time for adults is 7-9 hours. Reminder to clean CPAP/BIPAP supplies weekly and change supplies as needed. Work at making lifestyle changes to loss weight, as weight loss often results in improvement of sleep disordered breathing. Daily exercise has been shown to improve sleep quality. Avoid driving or engaging in any activity that requires full alertness if feeling sleepy, drowsy orotherwise impaired. ИВАН Patel [facility] I spent a total of 30-39 minutes (exact time 30 mins) on the date of service in preparation, delivery, and documentation of the care provided to Jon Rahman excluding any time spent in the performance of separately billed services. 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 Auto pap What is your current CPAP/BiPAP pressure? 6-15 cm Do you use a humidifier: no How many hours do you use CPAP/BiPAP per night: 7 Are you using oxygen: no EPWORTH SLEEPINESS SCALE How likely are you to doze off or fall asleep in the following situations, in contrast to feeling just tired? This refers to your usual way of life in recent times. Even if you have not done some of these things recently try to work out how they would have affected you. Use the following scale to choose the most appropriate number for each situation: 0 = No chance of dozing 1 = Slight chance of dozing 2 = moderate chance of dozing 3 = high chance of dozing SITUATION CHANCE OF DOZING Sitting and reading ................................................0 Watching TV..........................................................0 Sitting inactive in a public place.............................0 (e.g. a theater or a meeting) As a passenger in a car for an hour without a break..................................0 Lying down to rest in the afternoon when circumstances permit................3 Sitting and talking to someone...............................0 Sitting quietly after a lunch without alcohol............0 In a car, while stopped for a few minutes in traffic...............................................0 Total........................................................................3 Interpretation 1 - 6 points = normal 7 - 8 points = average sleepiness 9 - 24 points = abnormal (possibly pathologic) sleepiness Nova Garcia LPN 02/07/2023 10:11 AM documented in this encounter Plan of Treatment Upcoming Encounters Date Type Specialty Care Team Description 03/07/2023 Nutrition Services Gastroenterology Arianna Rivera RDN [address] [place] [address] 04/04/2023 Nutrition Services Gastroenterology Arianna Rivera RDN [address] [place] [address] 05/02/2023 Nutrition Services Gastroenterology Arianna Rivera RDN [address] [place] [address] 05/19/2023 Office Visit Endocrinology Mehul [place] MD [address], [place] [id number] 05/30/2023 Nutrition Services Gastroenterology Arianna Rivera RDN [address] [place] [address] 06/09/2023 Office Visit Family Medicine Cayetano IIIRaman MD [address] [place] [address] 10/12/2023 Office Visit Dermatology Elizabeth Magaña MD [address] [facility] [place] [address] 02/13/2024 Office Visit Sleep Disorders Ankita Mckeon, ИВАН [address] [place] [address] Health Maintenance Due Date Last Done Comments [...] as of this encounter Visit Diagnoses Diagnosis APOORVA on CPAP- Primary Obstructive sleep apnea (adult) (pediatric) documented in this encounter Care Teams Trim Master Operator Relationship Specialty Start Date End Date Raman Monteiro III, MD [address] [facility] [place] [address] PCP - General 10/10/02 documented as of this encounter
--- OUTSIDE RECORDS SUMMARY | 2023-06-16 14:12 | External Medical Summary | Summary of Care ---
Author Name Unknown Organization [facility] Address [address] [place] [address] Phone [phone] Care Team Providers Care Roller Shop Supervisor Name Role Phone Cayetano CAT MD, Grace Durant Primary Care Provider [phone] Reason for Referral * Medication Prior Authorization - Closed Specialty Diagnoses / Procedures Referred By Contmaxwell t Referred To Contact Diagnoses Chronic right-sided low back pain without sciatica Ching Montgomery DO [address] [place] [address] Referral ID Status Reason Start Date Expiration Date Visits Re quested Visits Authorized [id number] Closed [phone] Reason for Visit * Reason Comments eRx-Medication Refill Encounter Details Date Type Department Care Team (Late st Contact Info) Description 04/11/2023 Refill Family Practice [facility] [place] [address] [place] [address] Grace Lynch III, MD [address] [place] [address] Chronic right-sided low back pain without sciatica; Type 2 diabetes mellitus with hemoglobin A1c goal of less than 7.0% (HCC); Hypertriglyceridemia Allergies No known active allergiesdocumented as of this encounter (statuses as of 04/12/2023) Medications Medication Sig Dispensed Refills Start Date [...] by mouth. 1200 mg daily 0 Active [employer]blr Verio Reflect w/Device Kit Use as directed. [...] Information Patient not taking.Reported on 03/07/2023 Mini [place]-3 Burp-Less 540 MG Oral Capsule Take by [...] Active traMADol HCl 50 MG Oral Tablet (Ultram)Indication s:Chronic right-sided low back pain without sciatica Take 1 Tablet by mouth every 8 hours as needed for Pain, Moderate. 40 Tablet 0 04/12/20 23 Active Jardiance 25 MG Oral Tablet (Empagliflozin)Ind ications:Type 2 diabetes mellitus with hemoglobin A1c goal of less than 7.0% (HCC) TAKE 1 TABLET BY MOUTH DAILY. 90 Tablet 0 04/11/20 23 Active Rosuvastatin Calcium 20 MG Oral Tablet (Crestor)Indicatio ns:Hypertriglyceri demia TAKE 1 TABLET BY MOUTH DAILY. 90 Tablet 0 04/11/20 23 Active Insulin Glargine Solostar 100 UNIT/ML Subcutaneous Solution Pen-injector (Basaglar KwikPen)Indication s:Type 2 diabetes mellitus with hemoglobin A1c goal of less than 7.0% (HCC) INJECT 50 UNITS SUBCUTANEOUSLY DAILY; INCREASE 1 UNIT DAILY IN THE MORNING FOR SUGAR OVER 120. 45 mL 0 04/11/20 23 Active Fenofibrate Micronized 134 MG Oral CapsuleIndications :Hypertriglyceride allie TAKE 1 CAPSULE BY MOUTH DAILY 90 Capsule 0 04/11/20 23 Active OneTouch Verio In Vitro Strip (Glucose Blood)Indications: Type 2 diabetes mellitus with hemoglobin A1c goal of less than 7.0% (HCC),Hypertriglyc eridemia USE UP TO 4 TIMES DAILY 400 Strip 0 04/11/20 23 Active OneTouch Delica Plus [id number] Use as directed. 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 documented as of this encounter (statuses as of 04/12/2023) Immunizations Name Administration Dates Next Due COVID-19 mRNA, LNP-s, No Pre serve, 2-Dose Series ([employer]) 06/05/2021,09/08/2020,08/12/2020 Pneumococcal Conjugate Vacci ne, 20-valent ([id number]) 05/23/2022 Pneumococcal Polysaccharide PPV23 (Pneumovax) 01/19/2021,10/04/2012 SEASONAL [...] encounter Miscellaneous Notes * Telephone Encounter - Ching Montgomery DO - 04/12/2023 2:01 PM EDTSigned Prescriptions: Disp Refills traMADol HCl 50 MG Oral Tablet (Ultram) 40 Tab*0 Sig: Take 1 Tablet by mouth every 8 hours as needed for Pain, Moderate. Authorizing Provider: CHING MONTGOMERY Jardiance 25 MG Oral Tablet (Empagliflozin)90 Tab*0 Sig: TAKE 1 TABLET BY MOUTH DAILY. Authorizing Provider: GRACE LYNCH III Ordering User: JORDAN GARCIA Rosuvastatin Calcium 20 MG Oral Tablet (Cr*90 Tab*0 Sig: TAKE 1 TABLET BY MOUTH DAILY. Authorizing Provider: GRACE LYNCH III Ordering User: JORDAN GARCIA Insulin Glargine Solostar 100 UNIT/ML Subc*45 mL 0 Sig: INJECT 50 UNITS SUBCUTANEOUSLY DAILY; INCREASE 1 UNIT DAILY IN THE MORNING FOR SUGAR OVER 120. Authorizing Provider: GRACE LYNCH III Ordering User: TIM GARCIA Fenofibrate Micronized 134 MG Oral Capsule 90 Cap*0 Sig: TAKE 1 CAPSULE BY MOUTH DAILY Authorizing Provider: GRACE LYNCH III Ordering User: JORDAN GARCIA OneTouch Verio In Vitro Strip (Glucose Blo*400 St*0 Sig: USE UP TO 4 TIMES DAILY Authorizing Provider: GRACE LYNCH III Ordering User: JORDAN GARCIA * Telephone Encounter - Jordan Garcia [facility] - 04/11/2023 9:03 PM EDT Pending Prescriptions: Disp Refills traMADol HCl 50 MG Oral Tablet (Ultram) 40 Tab*0 Signed Prescriptions: Disp Refills Jardiance 25 MG Oral Tablet (Empagliflozin)90 Tab*0 Sig: TAKE 1 TABLET BY MOUTH DAILY.Authorizing Provider: GRACE LYNCH III User: JORDAN GARCIA RosuvastatinCalcium 20 MG Oral Tablet (Cr*90 Tab*0 Sig: TAKE 1 TABLET BY MOUTH DAILY.Authorizing Provider: GRACE LYNCH III User: JORDAN GARCIA Insulin Glargine Solostar 100 UNIT/ML Subc*45 mL 0 Sig: INJECT 50 UNITS SUBCUTANEOUSLY DAILY; INCREASE 1 UNIT DAILY IN THE MORNING FOR SUGAR OVER 120.Authorizing Provider: GRACE LYNCH III User: JORDAN GARCIA Fenofibrate Micronized 134 MG Oral Capsule 90 Cap*0 Sig: TAKE 1 CAPSULE BY MOUTH DAILYAuthorizing Provider:GRACE LYNCH III User: JORDAN GARCIA OneTouch Verio In Vitro Strip (Glucose Blo*400 St*0 Sig: USE UP TO 4 TIMES DAILYAuthorizing Provider: GRACE LYNCH III User: JORDAN GARCIA documented in this encounter Plan of Treatment Upcoming Encounters Date Type Department Care Team (Late st Contact Info) Description 05/02/2023 2:30 PM [facility] Nutrition Services Nutrition & Weight Management, [address] [place] [address] Arianna Rivera RDN [address] [place] [address] 05/19/2023 3:20 PM EST Office Visit Endocrinology, [place] [address] [place] [address] Mehul Paul MD [address] [place] [address] 05/30/2023 2:30 PM EST Nutrition Services Nutrition & Weight Management, [facility] [address] [place] [address] Arianna Rivera RDN [address] [place] [address] 06/09/2023 9:40 AM EST Office Visit Family [facility] [address] [facility] [place] [address] Grace Lynch III, MD [address] [facility] [place] [address] 07/11/2023 11:20 AM EST Nutrition Services Nutrition & Weight Management, [facility] [address] [facility] [place] [address] Arianna Rivera RDN [address] [place] [address] 08/15/2023 11:20 AM EST Nutrition Services Nutrition & Weight Management, [facility] [address] [place] [address] Arianna Rivera RDN [address] [place] [address] 09/12/2023 11:20 AM EDT Nutrition Services Nutrition & Weight Management, [facility] [address] [place] [address] Arianna Rivera RDN [address] [place] [address] 10/12/2023 11:00 AM EDT [facility] [address] [facility] [place] [address] Elizabeth Magaña MD [address] [facility] [place] [address] 02/13/2024 10:00 AM EDT Office Visit Sleep Disorders Ctr [facility] [address] [place] [address] Ankita Mckeon CRNP [address] [place] [address] Health Maintenance Due Date Last Done Comments [...] Chronic right-sided low back pain without sciatica Type 2 diabetes mellitus with hemoglobin A1c goal of less than 7.0% (HCC) Hypertriglyceridemia Pure hyperglyceridemia documented in this encounter Care Teams Roller Shop Supervisor Relationship Specialty Start Date End Date Grace Lynch III, MD [address] [place] [address] PCP - General 10/10/02 documented as of this encounter
--- OUTSIDE RECORDS SUMMARY | 2023-06-16 14:12 | External Medical Summary | Summary of Care ---
Author Name Unknown Organization [facility] Address [address] [place] [address] Phone [phone] Care Team Providers Care Aqueduct And Reservoir Keeper Name Role Phone Cayetano CAT MD, [facility] Primary Care Provider [phone] Reason for Visit * Reason Onset Date Comments Medication Refill 02/22/2023 Encounter Details Date Type Department Care Team Description 02/22/2023 Refill [facility] [address] [place] [address] Paula Walters MD [address] [place] [address] Type 2 diabetes mellitus with hemoglobin A1c goal of less than 7.0% ([facility])* Allergies No known active allergiesdocumented as of this encounter (statuses as of 02/22/2023) Medications Medication Sig Dispensed Refills Start Date [...] a week 0 Active OneTouch Delica Plus [id number] Use as directed. To test blood sugar 4x daily. 400 Each 3 2 Active Plenity Oral Capsule Take by mouth 3 Capsules 2 times a day 30 minutes before morning and evening meals . Take 16 oz of water 20 minutes later 100 Capsule 8 2 Active Mini Solsberry-3 Burp-Less 540 MG Oral Capsule Take by mouth . 0 Active traMADol HCl 50 MG Oral Tablet (Ultram)Indications :Chronic right-sided low back pain without sciatica Take by mouth 1 Tablet every 8 hours as needed for Pain, Moderate or Pain, Severe. 40 Tablet 1 2 Active Insulin Glargine Solostar 100 UNIT/ML Subcutaneous Solution Pen-injector (Basaglar Rocky)Indications :Type 2 diabetes mellitus with hemoglobin A1c [...] 4 weeks 2 mL 3 3 Active Mounjaro 5 MG/0.5ML Subcutaneous Solution Pen-injector (Tirzepatide) Inject 5 mg under the skin once a week. After using 0.25 mg once a week for 4 weeks Do not start before December 09, 2022. 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 documented as of this encounter (statuses as of 02/22/2023) Immunizations Name Administration Dates Next Due COVID-19 mRNA, LNP-s, No Pre serve, 2-Dose Series (Pfizer) 06/05/2021,09/08/2020,08/12/2020 Pneumococcal Conjugate Vacci ne, 20-valent ([id number]) 05/23/2022 Pneumococcal Polysaccharide PPV23 (Pneumovax) 01/19/2021,10/04/2012 Season [...] encounter Miscellaneous Notes * Telephone Encounter - Paula Walters MD - 02/22/2023 2:11 PM EDTSigned Prescriptions: Disp Refills Mounjaro 5 MG/0.5ML Subcutaneous Solution *2 mL 3 Sig: Inject 5 mg under the skin once a week. After using 0.25 mg once a week for 4 weeks Authorizing Provider: PAULA WALTERS * Telephone Encounter - Nicole Aaron LPN - 02/22/2023 1:21 PM EDTPending Prescriptions: Disp Refills Mounjaro 5 MG/0.5ML Subcutaneous Solution *2 mL 3 Sig: Inject 5 mg under the skin once a week. After using 0.25 mg once a week for 4 weeks * Telephone Encounter - Nicole Aaron LPN - 02/22/2023 1:21 PM EDT This medication has been pended for renewal in accordance with our office medication renewal policy. Pending Prescriptions: Disp Refills Mounjaro 5 MG/0.5ML Subcutaneous Solution*2 mL 3 Sig: Inject 5 mg under the skin once a week. After using 0.25 mg once a week for 4 weeks 11/08/2022 (in office), Visit date not found (telemedicine) 05/19/2023 If no future appointments scheduled, and last appointment is greater than a year ago, please schedule patient for a follow-up appointment Last date the medication was ordered: 12/09/2022 Pharmacy: [facility] [place] Labs: Lab Results Component Value Date/Time CREATININE - [facility] 1.0 11/15/2022 09:02 AM CREATININE - [facility] 1.2 04/27/2019 11:30 AM CREATININE, RANDOM URINE - [facility] 125 11/15/2022 10:40 AM CREATININE, RANDOM URINE - [facility] 119 08/03/2017 11:15 AM No components found for: Carleen Guillen * Telephone Encounter - Pily Castañeda - 02/22/2023 1:19 PM EDTPending Prescriptions: Disp Refills Mounjaro 5 MG/0.5ML Subcutaneous Solution *2 mL 3 Sig: Inject 5 mg under the skin once a week. After using 0.25 mg once a week for 4 weeks documented in this encounter Plan of Treatment Upcoming Encounters Date Type Specialty Care Team Description 03/07/2023 Nutrition Services Gastroenterology Arianna Rivera RDN [address] [place] [address] 04/04/2023 Nutrition Services Gastroenterology Arianna Rivera RDN [address] [place] [address] 05/02/2023 Nutrition Services Gastroenterology Arianna Rivera RDN [address] [place] [address] 05/19/2023 Office Visit Endocrinology Paula Walters MD [address] [place] [address] 05/30/2023 Nutrition Services Gastroenterology Arianna Rivera RDN [address] [place] [address] 06/09/2023 Office Visit Family Medicine Dougherty Raman CAT MD [address] [place] [address] 10/12/2023 Office Visit Dermatology Elizabeth Magaña MD [address] [place] [address] 02/13/2024 Office Visit Sleep Disorders Ankita Mckeon CRNP [address] [place] [address] Health Maintenance Due Date Last Done Comments Zoster Vaccines (1 of 2) 2005 Depression Screening, Annual for Pts 12 and Over 08/15/2019 08/15/2018 Diabetic Foot Exam 06/30/2021 06/30/2020, [...] goal of less than 7.0% (HCC)- Primary documented in this encounter Care Teams Aqueduct And Reservoir Keeper Relationship Specialty Start Date End Date Cayetano CAT, Raman Durant MD [address] [place] [address], [place] [address] PCP - General 10/10/02 documented as of this encounter
--- OUTSIDE RECORDS SUMMARY | 2023-06-16 14:12 | External Medical Summary | Summary of Care ---
Author Name Unknown Organization [facility] Address [address] [place] [address] Phone [phone] Care Team Providers Care Head Girls Golf Coach Name Role Phone Cayetano CAT MD, Raman Durant Primary Care Provider [phone] Reason for Visit * Reason Onset Date Comments Sleep Apnea Device 02/07/2023 Download revi ewed Encounter Details Date Type Department Care Team Description 02/07/2023 Telephone Sleep Disorders Ctr [facility] [address] [place] [address] Ankita Mckeon CRNP [address] [place] [address] Sleep Apnea Device (Download reviewed) Allergies No known active allergiesdocumented as of [...] a week 0 Active OneTouch Delica Plus [id number] Use as directed. To test blood sugar 4x daily. 400 Each 3 2 Active Plenity Oral Capsule Take by mouth 3 Capsules 2 times a day 30 minutes before morning and evening meals . Take 16 oz of water 20 minutes later 100 Capsule 8 2 Active Mini Fortuna-3 Burp-Less 540 MG Oral Capsule Take by mouth . 0 Active traMADol HCl 50 MG Oral Tablet (Ultram)Indications: Chronic right-sided low back pain without sciatica Take by mouth 1 Tablet every 8 hours as needed for Pain, Moderate or Pain, Severe. 40 Tablet 1 2 Active Insulin Glargine Solostar 100 UNIT/ML Subcutaneous Solution Pen-injector (Basaglar KwikSeth)Indications: Type 2 diabetes mellitus with hemoglobin A1c [...] (Pfizer) 06/05/2021,09/08/2020,08/12/2020 Pneumococcal Conjugate Vacci ne, 20-valent ([id number]) 05/23/2022 Pneumococcal Polysaccharide PPV23 (Pneumovax) 01/19/2021,10/04/2012 Season [...] Arianna Rivera RDN [address] [place] [address] 04/04/2023 Nutrition Services Gastroenterology Arianna Rivera RDN [address] [place] [address] 05/02/2023 Nutrition Services Gastroenterology Arianna Rivera RDN [address] [place] [address] 05/19/2023 Office Visit Endocrinology Mehul Paul MD [address] [facility] [place] [address] 05/30/2023 Nutrition Services Gastroenterology Arianna Rivera RDN [address] [place] [address] 06/09/2023 Office Visit Family Medicine [facility]ano [facility] CAT [facility] [address] 10/12/2023 Office Visit Dermatology Elizabeth Magaña MD 200 [facility] [place] [address] 02/13/2024 Office Visit Sleep Disorders Ankita Mckeon CRNP [address] [place] [address] Health Maintenance Due Date Last Done Comments [...] filedocumented as of this encounter Care Teams Head Girls Golf Coach Relationship Specialty Start Date End Date Raman Monteiro III, MD 200 [place] [address] PCP - General 10/10/02 documented as of this encounter
--- OUTSIDE RECORDS SUMMARY | 2023-06-16 14:12 | External Medical Summary | Summary of Care ---
Author Name Unknown Organization [facility] Address [address] [place] [address] Phone [phone] Care Team Providers Care Inspector Of Dredging Name Role Phone Cayetano CAT MD, Grace Durant Primary Care Provider [phone] Reason for Visit * Reason Onset Date Comments Medication Refill 04/11/2023 Encounter Details Date Type Department Care Team (Late st Contact Info) Description 04/11/[address] [facility] [address] [place] [address] Grace Lynch III, MD [address] [place] [address] Allergies No known active allergiesdocumented as of [...] Information Patient not taking.Reported on 03/07/2023 Mini [place]-3 Burp-Less 540 MG Oral Capsule Take by mouth . 0 Active traMADol HCl 50 MG Oral Tablet (Ultram)Indications :Chronic right-sided low back pain without sciatica Take by mouth 1 Tablet every 8 hours as needed for Pain, Moderate or Pain, Severe. 40 Tablet 1 2 Active Triamcinolone Acetonide 0.1 % External [...] OVER 120. 45 mL 0 3 Active Fenofibrate Micronized 134 MG Oral CapsuleIndications: [...] mL 3 3 Active OneTouch Delica Plus [id number] Use as directed. To test blood sugar 4x daily. 400 Each 3 3 Active metFORMIN HCl 1000 MG Oral Tablet (Glucophage)Indicat ions:Type 2 diabetes mellitus with hemoglobin A1c goal of less than 7.0% (HCC) Take 1 Tablet by mouth in the morning and 1 Tablet before bedtime. With meals.. 180 Tablet 3 3 Active OneTouch Delica Plus [id number] Use as directed. To test blood sugar 4x daily. 400 Each 3 2 04/11/20 23 Discontinu ed(Refill) documented as of this [...] mRNA, LNP-s, No Pre serve, 2-Dose Series (PharmMD) 06/05/2021,09/08/2020,08/12/2020 Pneumococcal Conjugate Vacci ne, 20-valent ([id number]) 05/23/2022 Pneumococcal Polysaccharide PPV23 (Pneumovax) 01/19/2021,10/04/2012 SEASONAL [...] Miscellaneous Notes * Telephone Encounter - Becky Morin RPh - 04/12/2023 10:32 AM EDTSigned Prescriptions: Disp Refills OneTouch Delica Plus [id number] 400 Ea*3 Sig: Use as directed. Totest blood sugar 4x daily.Authorizing Provider: GRACE LYNCH III User: BECKY MORIN documented in this encounter Plan of Treatment Upcoming Encounters Date Type Department Care Team (Late st Contact Info) Description 05/02/2023 2:30 PM EST Nutrition Services Nutrition & Weight Management, [facility] [address] [place] [address] Arianna Rivera RDN [address] [place] [address] 05/19/2023 3:20 PM EST Office Visit Endocrinology, [place] [address] [place] [address] Mehul Paul MD [address] [place] [address] 05/30/2023 2:30 PM EST Nutrition Services Nutrition & Weight Management, [facility] [address] [facility] [address] Ari[facility] RDN [facility] [place] [address] 06/09/2023 9:40 AM EST Office Visit Family Practice [facility] 200 [place] [address] Grace Lynch III, MD 200 [facility] [place] [address] 07/11/2023 11:20 AM EST Nutrition Services Nutrition & Weight Management, [facility] [address] [place] [address] Arianna Rivera RDN 132 [facility] [address] 08/15/2023 11:20 AM EST Nutrition Services Nutrition & Weight Management, [facility] [address] [place] [address] Arianna Rivera RDN [address] [facility] [place] [address] 09/12/2023 11:20 AM EDT Nutrition Services Nutrition & Weight Management, [facility] [address] [place] [address] Arianna Rivera RDN [address] [place] [address] 10/12/2023 11:00 AM EDT [facility] [address] [place] [address] Elizabeth Magaña MD [address] [place] [address] 02/13/2024 10:00 AM EDT Office Visit Sleep Disorders Ctr [facility] [address] [place] [phone] Ankita Mckeon CRNP [address] [place] [address] Health Maintenance Due Date Last Done Comments [...] 09/17, 07/05/2021, Additional history exists Albumin/Creatinine Ratio 11/16/202311/15/ 023, 07/08/2021, 08/03/2017, Additional history exists GFR [...] filedocumented as of this encounter Care Teams Inspector Of Dredging Relationship Specialty Start Date End Date Grace Lynch III, MD [address] [place] [address] PCP - General 10/10/02 documented as of this encounter
--- OUTSIDE RECORDS SUMMARY | 2023-06-16 14:12 | External Medical Summary | Summary of Care ---
Author Name Unknown Organization [facility] Address [address] [place] [address] Phone [phone] Care Team Providers Care Lobster Man Name Role Phone Cayetano CAT MD, Raman Durant Primary Care Provider [phone] Reason for Visit * Reason Comments Weight Management Dietary Counseling Encounter Details Date Type Department Care Team (Latest Contact Info) Description 05/02/2023 2:30 PM [facility] Nutrition Services Nutrition & Weight Management, [facility] 132 [facility] [place] [address] Arianna Rivera RDN 132 [facility] [place] [address] Obesity, Class I, BMI 30.0-34.9 (see actual BMI)*; Type 2 diabetes, HbA1c goal < 7% ([facility]); Obstructive sleep apnea syndrome Allergies No known active allergiesdocumented as of this encounter (statuses as of 05/02/2023) Medications Medication Sig Dispensed Refills Start Date [...] Information Patient not taking.Reported on 03/07/2023 Mini [place]-3 Burp-Less 540 MG Oral Capsule Take by [...] mL 3 3 Active OneTouch Delica Plus [id number] Use as directed. To test blood sugar 4x daily. 400 Each 3 3 Active metFORMIN HCl 1000 MG Oral Tablet (Glucophage)Indicati ons:Type 2 diabetes mellitus with hemoglobin A1c goal of less than 7.0% (HCC) Take 1 Tablet by mouth in the morning and 1 Tablet before bedtime. With meals.. 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 documented as of this encounter (statuses as of 05/02/2023) Immunizations Name Administration Dates Next Due COVID-19 mRNA, LNP-s, No Pre serve, 2-Dose Series (ArborMetrix) 06/05/2021,09/08/2020,08/12/2020 Pneumococcal Conjugate Vacci ne, 20-valent ([id number]) 05/23/2022 Pneumococcal Polysaccharide PPV23 (Pneumovax) 01/19/2021,10/04/2012 SEASONAL [...] Sign Reading Time Taken Comments Blood Pressure 114/66 05/02/2023 2:19 PM EST Pulse 84 05/02/2023 2:19 PM EST Temperature - - Respiratory Rate - - Oxygen Saturation - - Inhaled Oxygen Concentration - - Weight 105.3 kg (232 lb 1.6 oz) 05/02/2023 2:19 PM EST Height - - Body Mass Index 32.37 02/07/2023 10:07 AM EDT documented in this encounter Patient Instructions * Patient Instructions* Arianna Rivera RDN - 05/02/2023 2:46 PM EST NUTRITION DIAGNOSIS No meal skipping Lean protein 80-90 g daily Aim for 2,000 calories a day tracking with Lose it Free weights/hand weights/[employer] use: aim for 30-45 min most days of the week in addition toplaying golf. Maintain at least 12,000 steps a day Water/decaf fluids: at least 64 oz daily documented in this encounter Progress Notes * Arianna Rivera RDN - 05/02/2023 2:30 PM EST NUTRITION & WEIGHT MANAGEMENT Follow up [employer] Name: Jon Rahman Location: NUTRITION & WEIGHT MANAGEMENT, [facility] Date: 05/02/2023 Time: 9:13 AM Patient was identified at visit by name and date. Patient was seen [id number] in the clinic. NUTRITION ASSESSMENT SUBJECTIVE: 68 year old male is seen in the [facility] clinic for weight and nutrition support. Has been following with the [facility] office for several years. See past RD notes for further details of past visits. PMHx: DM, insulin dependent, very cognizant of BS levels, follows with endo for DM mgt. See past RD notes for complete pt hx. 05/02/23 -Routine monthly dietary follow up -Son and his were recently visiting from [place]. -Not consistent with tracking 04/04/23 -Routine monthly [...] .5 no GI upset -Upcoming trip to [place] this Monday -Been eating less -Feeling full faster, the desire to eat goes away faster -Feeling full a bit longer 11/22/22 -routine monthly RD visit -Saw endo 11/08/22, now on mounjaro 2.5 to help with DM control -Daughter had second grandbaby (little girl) today right before visit! 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 (in [place] and [facility]) PRIOR NUTRITION COUNSELING: Weight Management Clinic FOOD ALLERGIES/INTOLERANCE ISSUES: None Describes typical diet history/24 hr recall Breakfast: Eng muffin with PB or skip Snacks: None Lunch: Mcroberts, Albanian or Ramen Snacks: Beef Jerky Dinner: Chix, Ramen, Mcroberts Snacks: Soup (tomato or mushroom), fruit Drinks: water, flavored zero david OR plain water 70-80 oz Alcohol: Infrequent Restaurant meals: several times a week DIET RECALL INDICATES: Poor meal distribution Inadequate fruit and vegetable intake Inadequate protein intake Low fat and/or low sugar selections Uses calorie free beverages Low caffeine intake PHYSICAL ACTIVITY: Step count still high 10,000+ most days of the week Progress on goals from the previous month: No meal skipping Lean protein 80-90 g daily Aim for 2,000 calories a day tracking with Lose it Free weights/hand weights/[employer] use: aim for 30-45 min most days of the week in addition toplaying golf. Water/decaf fluids: at least 64 oz daily ANTHROPOMETRICS: Initial clinic visit 09/11/13 Weight 262 lbs Height 70.75" Body mass index is 36.83 kg/m. AIBW: 189 lbs/ 86 kg HIGHEST WEIGHT: 272 lbs Date: 2009 WT GOAL: 218 lbs MIRACLE WT: 233 lbs Date: 04/04/23 CURRENT WT: 232 lbs WEIGHT CHANGES: -1 lbs since MIRACLE Wt Readings from Last 10 Encounters: 05/02/23 105.3 kg (232 lb 1.6 oz) 04/04/23 105.9 kg (233 lb 6.4 oz) 03/07/23 106.1 kg (233 lb 14.4 oz) 02/07/23 105.7 kg (233 lb) 12/27/22 108.4 kg (238 lb 14.4 oz) 11/22/22 109.4 kg (241 lb 3.2 oz) 11/09/22 111 kg (244 lb 12.8 oz) 11/08/22 111.1 kg (245 lb) 11/01/22 109.7 kg (241 lb 12.8 oz) 09/27/22 111.5 kg (245 lb 12.8 oz) MNT: Calorie Controlled Diet Patient is interested in the following treatment options for obesity: medical management. BARRIERS TO LEARNING: None SPECIAL EDUCATION NEEDS: None LABS: Pertinent lab studies have been reviewed. DAILY ENERGY/NUTRIENT NEEDS: Ashley St. Jeor 1908 x 1.3 activity factor = 2480 Kcals --> 2000 Kcals for weight loss Sedentary 1.2 Light 1.3 Moderate 1.5 Active 1.7 Very Active 1.9 Protein: 1.0 gm protein/AIBW (86 kg) = 86 gm protein/day Fluid: 25 mL/AIBW (86 kg) = 2150 mL/day KNOWLEDGE ASSESSMENT: adequate knowledge NUTRITION DIAGNOSIS Overweight/obesity related to excessive energy intake and physical inactivity as evidenced by BMI of 32.37 kg/m, Class I Obesity. NUTRITION INTERVENTION No meal skipping Lean protein 80-90 g daily Aim for 2,000 calories a day tracking with Lose it Free weights/hand weights/[employer] use: aim for 30-45 min most days of the week in addition toplaying golf. Maintain at least 12,000 steps a day Water/decaf fluids: at least 64 oz daily INSTRUCTED PT ON THESE NUTRITION HANDOUTS: None given PATIENT GOALS: See above EXPECTED OUTCOMES: Demonstrated interest in learning. Expect compliance with diet recommendations. PLAN: Scheduled 30 min visit Arianna Rivera RDN documented in this encounter Nursing Notes * Areli Sandoval LPN - 05/02/2023 2:23 PM EST Pt verified identity by last name and date. Chief Complaint Patient presents with Weight Management Dietary Counseling documented in this encounter Plan of Treatment Upcoming Encounters Date Type Department Care Team (Late st Contact Info) Description 05/19/2023 3:20 PM EST Office Visit Endocrinology, [place] [address] [place] [address] Mehul Paul MD [address] [place] [address] 05/30/2023 2:30 PM EST Nutrition Services Nutrition & Weight Management, [facility] 132 [place] [address] Arianna Rivera RDN 132 [place] [address] 06/09/2023 9:40 AM EST Office Visit [facility] [address] [place] [address] Raman Monteiro III, MD 200 [place] [address] 07/11/2023 11:20 AM EST Nutrition Services Nutrition & Weight Management, [facility] 132 [place] [address] Arianna Rivera RDN [address] [place] [address] 08/15/2023 11:20 AM EST Nutrition Services Nutrition & Weight Management, [facility] 132 [facility] [place] [address] Arianna Rivera RDN [address] [place] [address] 09/12/2023 11:20 AM EDT Nutrition Services Nutrition & Weight Management, [facility] [address] [place] [address] Arianna Rivera RDN [address] [place] [address] 10/12/2023 11:00 AM EDT Office Visit Dermatology [facility] 200 [facility] [place], [place] [address] Elizabeth Magaña MD 200 [facility] [place] [address] 02/13/2024 10:00 AM EDT Office Visit Sleep Disorders Ctr [facility] [address] [place] [phone] Ankita Mckeon CRNP [address] [place] [address] Health Maintenance Due Date Last Done Comments [...] Type 2 diabetes, HbA1c goal < 7% ([facility]) Type II or unspecified type diabetes mellitus without mention of complication, not stated as uncontrolled Obstructive sleep apnea syndrome Obstructive sleep apnea (adult) (pediatric) documented in this encounter Care Teams Lobster Man Relationship Specialty Start Date End Date Raman Monteiro III, MD [address] [facility] [place] [address] PCP - General 10/10/02 documented as of this encounter
--- OUTSIDE RECORDS SUMMARY | 2023-06-16 14:12 | External Medical Summary | Summary of Care ---
Author Name Unknown Organization [facility] Address [address] [place] [address] Phone [phone] Care Team Providers Care Sausage Tier Name Role Phone Cayetano CAT MD, Raman Durant Primary Care Provider [phone] Reason for Visit * Reason Comments Weight Management 1 month follow up, radha renee check Encounter Details Date Type Department Care Team Description 04/04/2023 Nutrition Services Nutrition & Weight Management, [facility] [address] [place] [address] Arianna Rivera RDN [address] [place] [address] Obesity, Class I, BMI 30.0-34.9 (see actual BMI)*; Type 2 diabetes, HbA1c goal < 7% ([facility]); Obstructive sleep apnea syndrome Allergies No known active allergiesdocumented as of this encounter (statuses as of 04/04/2023) Medications Medication Sig Dispensed Refills Start Date [...] a week 0 Active OneTouch Delica Plus [id number] Use as directed. To test blood sugar 4x daily. 400 Each 3 2 Active Plenity Oral Capsule Take by mouth 3 Capsules 2 times a day 30 minutes before morning and evening meals . Take 16 oz of water 20 minutes later 100 Capsule 8 2 Active Additional Information Patient not taking.Reported on 03/07/2023 Mini [place]-3 Burp-Less 540 MG Oral Capsule Take by mouth . 0 Active traMADol HCl 50 MG Oral Tablet (Ultram)Indications: Chronic right-sided low back pain without sciatica Take by mouth 1 Tablet every 8 hours as needed for Pain, Moderate or Pain, Severe. 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 documented as of this encounter (statuses as of 04/04/2023) Immunizations Name Administration Dates Next Due COVID-19 mRNA, LNP-s, No Pre serve, 2-Dose Series ([email or web address]) 06/05/2021,09/08/2020,08/12/2020 Pneumococcal Conjugate Vacci ne, 20-valent ([email or web address]) 05/23/2022 Pneumococcal Polysaccharide PPV23 (Pneumovax) 01/19/2021,10/04/2012 SEASONAL [...] Sign Reading Time Taken Comments Blood Pressure 122/58 04/04/2023 11:02 AM EDT Pulse 83 04/04/2023 10:54 AM EDT Temperature 36.6 C (97.9 F) 04/04/2023 1 0:54 AM EDT Respiratory Rate - - Oxygen Saturation 99% 04/04/2023 10: 54 AM EDT Inhaled Oxygen Concentration - - Weight 105.9 kg (233 lb 6.4 oz) 023 10:54 AM EDT Height - - Body Mass Index 32.55 02/07/2023 10:07 AM EDT documented in this encounter Patient Instructions * Patient Instructions* Arianna Rivera RDN - 04/04/2023 11:28 AM EDT NUTRITION INTERVENTION No meal skipping Lean protein 80-90 g daily Aim for 2,000 calories a day tracking with Lose it Free weights/hand weights/[employer] use: aim for 30-45 min most days of the week in addition toplaying golf. Water/decaf fluids: at least 64 oz daily documented in this encounter Progress Notes * Arianna Rivera RDN - 04/04/2023 11:20 AM EDT NUTRITION & WEIGHT MANAGEMENT Follow up [facility] Name: Jon Rahman Location: NUTRITION & WEIGHT MANAGEMENT, [facility] Date: 04/04/2023 Time: 9:12 AM Patient was identified at visit by name and date. Patient was seen [id number] in the clinic. NUTRITION ASSESSMENT SUBJECTIVE: 68 year old male is seen in [facility] for weight and nutrition support. Has been following with the [facility] office for several years. See past RD notes for further details of past visits. PMHx: DM, insulin dependent, very cognizant of BS levels, follows with endo for DM mgt. See past RD notes for complete pt hx. 04/04/23 -Routine monthly dietary return -Making protein [...] .5 no GI upset -Upcoming trip to [place] this Monday -Been eating less -Feeling full [...] four days a week at two different golf courses (in [place] and [facility]) PRIOR NUTRITION COUNSELING: [facility] Management Clinic FOOD ALLERGIES/INTOLERANCE ISSUES: None Describes typical diet history/24 hr recall Breakfast: Skips Snacks: Beef jerky or crunch fit protein bar Lunch: protein shake, or salad or grilled chicken, or boneless chix wings Snacks: nuts or chips Dinner: chix, or meatloaf or ramen Snacks: beef jerky ore pretzels Drinks: water 80-100 oz, coffee 6 oz Alcohol: Infrequent Restaurant meals: several times a week DIET RECALL INDICATES: Poor meal distribution Inadequate fiber intake Inadequate fruit and vegetable intake Portion control Uses calorie free beverages Adequate protein intake PHYSICAL ACTIVITY: Still playing golf, just started using home gym this week Progress on goals from the previous month: Goal is to lose about 2-5 lbs in the next month Layer food intake: protein, fiber, carbs last No meal skipping Lean protein 80-90 g daily Aim for 2,000 calories a day Pt goal is to lose another 2-4 lbs a week ANTHROPOMETRICS: Initial clinic visit 09/11/13 Weight 262 lbs Height 70.75" Body mass index is 36.83 kg/m. HIGHEST WEIGHT: 272 lbs Date: 2009 [place] WT: 233 lbs (229 lbs at home) Date: 03/07/23 WT GOAL: 218 lbs CURRENT WT: 233 lbs WEIGHT CHANGES: Wt Readings from Last 10 Encounters: 03/07/23 106.1 kg (233 lb 14.4 oz) 02/07/23 105.7 kg (233 lb) 12/27/22 108.4 kg (238 lb 14.4 oz) 11/22/22 109.4 kg (241 lb 3.2 oz) 11/09/22 111 kg (244 lb 12.8 oz) 11/08/22 111.1 kg (245 lb) 11/01/22 109.7 kg (241 lb 12.8 oz) 09/27/22 111.5 kg (245 lb 12.8 oz) 08/30/22 108.3 kg (238 lb 11.2 oz) 08/02/22 109.5 kg (241 lb 8 oz) MNT: Calorie Controlled Diet, Heart Healthy Diet, Low Fat Diet, High Fiber Diet, Good Nutrition, Nutrient Dense Diet Patient is interested in the following treatment options for obesity: medical management. BARRIERS TO LEARNING: None SPECIAL EDUCATION NEEDS: None LABS: Pertinent lab studies have been reviewed. DAILY ENERGY/NUTRIENT NEEDS: [place] 1908 x 1.3 activity factor = 2480 Kcals --> 2000 Kcals for weight loss Sedentary 1.2 Light 1.3 Moderate 1.5 Active 1.7 Very Active 1.9 AIBW: 189 lbs/ 86 kg Protein: 1.0 gm protein/kg (86 kg) = 80-90 gm protein/day Fluid: 25 mL/kg (86 kg) = 2150 mL/day KNOWLEDGE ASSESSMENT: adequate knowledge NUTRITION DIAGNOSIS Overweight/obesity related to excessive energy intake and physical inactivity as evidenced by BMI of 32.55 kg/m, Class I Obesity. NUTRITION INTERVENTION No meal skipping Lean protein 80-90 g daily Aim for 2,000 calories a day Free weights/hand weights/[employer] use: aim for 30-45 min most days of the week in addition toplaying golf. Water/decaf fluids: at least 64 oz daily INSTRUCTED PT ON THESE NUTRITION HANDOUTS: None given PATIENT GOALS: NUTRITION INTERVENTION No meal skipping Lean protein 80-90 g daily Aim for 2,000 calories a day tracking with Lose it Free weights/hand weights/[employer] use: aim for 30-45 min most days of the week in addition toplaying golf. Water/decaf fluids: at least 64 oz daily EXPECTED OUTCOMES: Demonstrated interest in learning. Expect compliance with diet recommendations. PLAN: See above 30 min visit Arianna Rivera RDN documented in this encounter Nursing Notes * Teresa Foley LPN - 04/04/2023 10:55 AM EDT Patient identified by name and date of . Chief Complaint Patient presents with Weight Management 1 month follow up, keira check No complaints of any GI issues, doing well. documented in this encounter Plan of Treatment Upcoming Encounters Date Type Specialty Care Team Description 05/02/2023 Nutrition Services Gastroenterology Arianna Rivera RDN [address] [place] [address] 05/19/2023 Office Visit Endocrinology Mehul Paul MD [address] [place] [address] 05/30/2023 Nutrition Services Gastroenterology Arianna Rivera RDN [address] [place] [address] 06/09/2023 Office Visit Family Medicine Knox Raman CAT MD [address] [place] [address] 07/11/2023 Nutrition Services Gastroenterology Arianna Rivera RDN [address] [place] [address] 08/15/2023 Nutrition Services Gastroenterology Arianna Rivera RDN [address] [place] [address] 09/12/2023 Nutrition Services Gastroenterology Arianna Rivera RDN [address] [place] [address] 10/12/2023 Office Visit Dermatology Elizabeth Magaña MD [address] [place] [address] 02/13/2024 Office Visit Sleep Disorders Ankita Mckeon CRNP [address] [place] [address] Health Maintenance Due Date Last Done Comments Zoster Vaccines (1 of 2) 2005 Depression Screening 08/15/2019 08/15/2018 Diabetic Foot Exam [...] Type 2 diabetes, HbA1c goal < 7% (HCC) Type II or unspecified type diabetes mellitus without mention of complication, not stated as uncontrolled Obstructive sleep apnea syndrome Obstructive sleep apnea (adult) (pediatric) documented in this encounter Care Teams Sausage Tier Relationship Specialty Start Date End Date Raman Monteiro III, MD [address] [place] [address] PCP - General 10/10/02 documented as of this encounter
--- OUTSIDE RECORDS SUMMARY | 2023-06-16 14:12 | External Medical Summary | Summary of Care ---
Author Name Unknown Organization [facility] Address [address] [place] [address] Phone [phone] Care Team Providers Care Manager Property Name Role Phone Cayetano CAT MD, Raman Durant Primary Care Provider [phone] Reason for Visit * Reason Comments Follow Up Weight Management Encounter Details Date Type Department Care Team Description 03/07/2023 Nutrition Services Nutrition & Weight Management, [facility] [address] [place] [address] Arianna Rivera RDN [address] [facility] [place] [address] Obesity, Class I, BMI 30.0-34.9 (see actual BMI)*; Type 2 diabetes, HbA1c goal < 7% ([facility]); Obstructive sleep apnea syndrome Allergies No known active allergiesdocumented as of this encounter (statuses as of 03/07/2023) Medications Medication Sig Dispensed Refills Start Date [...] a week 0 Active OneTouch Delica Plus [id number] Use as directed. To test blood sugar 4x daily. 400 Each 3 2 Active Plenity Oral Capsule Take by mouth 3 Capsules 2 times a day 30 minutes before morning and evening meals . Take 16 oz of water 20 minutes later 100 Capsule 8 2 Active Additional Information Patient not taking.Reported on 03/07/2023 Mini [place]-3 Burp-Less 540 MG Oral Capsule Take by [...] hemoglobin A1c goal of less than 7.0% ([facility]) INJECT 50 UNITS SUBCUTANEOUSLY DAILY; INCREASE 1 [...] as of this encounter (statuses as of 03/07/2023) Active Problems Problem Noted Date History of [...] as of this encounter (statuses as of 03/07/2023) Resolved Problems Problem Noted Date Resolved Date DM type 2, not at goal 12/15/2010 8 Obesity, Class II, BMI 35-39.9, isolated (see ac tual BMI) 11/30/2009 09/11/2013 Overview: Per Obesity Protocol, #19 trauma 12/25/2008 12/25/2008 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 documented as of this encounter (statuses as of 03/07/2023) Immunizations Name Administration Dates Next Due COVID-19 mRNA, LNP-s, No Pre serve, 2-Dose Series (Pfizer) 06/05/2021,09/08/2020,08/12/2020 Pneumococcal Conjugate Vacci ne, 20-valent ([id number]) 05/23/2022 Pneumococcal Polysaccharide PPV23 (Pneumovax) 01/19/2021,10/04/2012 Season [...] Sign Reading Time Taken Comments Blood Pressure 110/72 03/07/2023 11:19 AM EDT Pulse 80 03/07/2023 11:19 AM EDT Temperature 36.6 C (97.9 F) 03/07/2023 1 1:19 AM EDT Respiratory Rate 18 03/07/2023 11:1 9 AM EDT Oxygen Saturation - - Inhaled Oxygen Concentration - - Weight 106.1 kg (233 lb 14.4 oz) 2022 11:19 AM EDT Height - - Body Mass Index 32.62 02/07/2023 10:07 AM EDT documented in this encounter Patient Instructions * Patient Instructions* Arianna Rivera RDN - 03/07/2023 11:59 AM EDT NUTRITION INTERVENTION Continue current dietary POC Layer food intake: protein, fiber, carbs last No meal skipping Lean protein 80-90 g daily Aim for 2,000 calories a day Pt goal is to lose another 2-4 lbs a week documented in this encounter Progress Notes * Ariannaviviane Rivera, RDN - 03/07/2023 11:20 AM EDT NUTRITION & WEIGHT MANAGEMENT [facility] Name: Jon Rahman Location: NUTRITION & WEIGHT MANAGEMENT, [facility] Date: 03/07/2023 Time: 9:15 AM Patient was identified at visit by name and date. Patient was seen [id number] in the clinic. NUTRITION ASSESSMENT SUBJECTIVE: 68 year old male is seen in the [facility] clinic for weight and nutrition support. Has been following with the [facility] office for several years. See past RD notes for further details of past visits. PMHx: DM, insulin dependent, very cognizant of BS levels, follows with endo for DM mgt. See past RD notes for complete pt hx. 03/07/23 -Routine monthly dietary return -On mounjaro 5.0 no GI issues -Eating less in portions, eating more carbs 12/27/22 -Routine monthly dietary return -On mounjaro .5 no GI upset -Upcoming trip to [place] this Monday -Been eating less -Feeling full [...] week at two different golf courses (in [place] and [facility]) 09/27/22 -on Prednisone for recurring rash, wt up 7 lbs -Will be on pred for another week (5 days) -Will see dermatology at end of September for rash -Playing golf, knee and hip are feeling better PRIOR NUTRITION COUNSELING: [facility] Management Clinic FOOD ALLERGIES/INTOLERANCE ISSUES: None Describes typical diet history/24 hr recall Breakfast: Skips Snacks: Lunch: Grilled chix salad or boneless wings if at the country club Snacks: Dinner: Ramen Snacks: Drinks: water, iced tea Alcohol: Infrequent Restaurant meals: once a week, twice a week DIET RECALL INDICATES: Poor meal distribution Inadequate fiber intake Inadequate fruit and vegetable intake Inadequate protein intake PHYSICAL ACTIVITY: Moderate still averaging 10k+ steps most days of the week Progress on goals from the previous month: ANTHROPOMETRICS: Initial clinic visit 09/11/2013 Weight 262 lbs Height 1.797 m (5' 10.75") Body mass index is 36.83 kg/m HIGHEST WEIGHT: 272 lbs Date: 2009 WT GOAL: 218 lbs MIRACLE WT: 238 lbs Date: 12/27/22 CURRENT WT: 233 lbs, 229 at home out of the shower WEIGHT CHANGES: -5 Wt Readings from Last 10 Encounters: 03/07/23 [...] 08/02/22 109.5 kg (241 lb 8 oz) Goal is to lose about 2-5 lbs in the next month MNT: Calorie Controlled Diet, Heart Healthy Diet, Low Fat Diet, High Fiber Diet, Good Nutrition, Nutrient Dense Diet Patient is interested in the following treatment options for obesity: medical management. BARRIERS TO LEARNING: None SPECIAL EDUCATION NEEDS: None LABS: Pertinent lab studies have been reviewed. DAILY ENERGY/NUTRIENT NEEDS: [place] [employer] [place] 1908 x 1.3 activity factor [...] physical inactivity as evidenced by BMI of 32.62 kg/m, Class I Obesity. NUTRITION INTERVENTION Continue current dietary POC Layer food intake: protein, fiber, carbs last No meal skipping Lean protein 80-90 g daily Aim for 2,000 calories a day Pt goal is to lose another 2-4 lbs a week INSTRUCTED PT ON THESE NUTRITION HANDOUTS: None given PATIENT GOALS: See above EXPECTED OUTCOMES: Demonstrated interest in learning. Expect compliance with diet recommendations. PLAN: Scheduled in Mar 30 min visit Arianna Rivera RDN documented in this encounter Nursing Notes * Susy Flor RN - 03/07/2023 11:19 AM EDT Chief Complaint Patient presents with Follow Up Weight Management documented in this encounter Plan of Treatment Upcoming Encounters Date Type Specialty Care Team Description 04/04/2023 Nutrition Services Gastroenterology Arianna Rivera RDN [address] [place] [address] 05/02/2023 Nutrition Services Gastroenterology Arianna Rivera RDN [address] [address] 05/19/2023 [facility] [address] [facility] [address] 05/30/2023 Nutrition Services Gastroenterology Arianna Rivera RDN [address] [address] 06/09/2023 Office Visit Family Medicine Cannon Raman CAT MD [address] [place] [address] 10/12/2023 Office Visit Dermatology Elizabeth Magaña MD [address] [facility] [place], [place] [address] 02/13/2024 Office Visit Sleep Disorders Ankita Mckeon CRNP [address] [place] [address] Health Maintenance Due Date Last Done Comments [...] (pediatric) documented in this encounter Care Teams Manager Property Relationship Specialty Start Date End Date Raman Monteiro III, MD [address] [place] [address] PCP - General 10/10/02 documented as of this encounter
--- OUTSIDE RECORDS SUMMARY | 2023-06-16 14:12 | External Medical Summary | Summary of Care ---
Author Name Unknown Organization [facility] Address [address] [place] [address] Phone [phone] Care Team Providers Care Thickener Operator Name Role Phone Cayetano CAT MD, Raman Durant Primary Care Provider [phone] Reason for Referral * Medication Prior Authorization - Pending Review Specialty Diagnoses / Procedures Referred By Janiya t Referred To Contact Diagnoses Type 2 diabetes mellitus with hemoglobin A1c goal of less than 7.0% ([facility]) Gabi Tilley PA-C [address] [facility] [place] [address] Referral ID Status Reason Start Date Expiration Date V isits Requested Visits Authorized [id number] Pending Review 999 999 Reason for Visit * Reason Onset Date Comments Med Request 04/11/2023 Encounter Details Date Type Department Care Team (Late st Contact Info) Description 04/11/2023 Telephone Family Practice [facility] Patty [place] [address] [facility] [place] [address] Raman Monteiro III, MD [address] [facility] [place] [address] Med Request Allergies No known active allergiesdocumented as of [...] a week 0 Active OneTouch Delica Plus [id number] Use as directed. To test blood sugar 4x daily. 400 Each 3 2 Active Plenity Oral Capsule Take by mouth 3 Capsules 2 times a day 30 minutes before morning and evening meals . Take 16 oz of water 20 minutes later 100 Capsule 8 2 Active Additional Information Patient not taking.Reported on 03/07/2023 Mini Cam[place]-3 Burp-Less 540 MG Oral Capsule Take by [...] for 4 weeks 2 mL 3 3 04/11/20 23 Discontinu ed(Refill) documented as of [...] (Pfizer) 06/05/2021,09/08/2020,08/12/2020 Pneumococcal Conjugate Vacci ne, 20-valent ([id number]) 05/23/2022 Pneumococcal Polysaccharide PPV23 (Pneumovax) 01/19/2021,10/04/2012 SEASONAL [...] encounter Miscellaneous Notes * Telephone Encounter - Bonnie Fernandez LPN - 04/11/2023 12:45 PM EDT Pending Prescriptions: Disp Refills Mounjaro 5 MG/0.5ML Subcutaneous Solution*2 mL 3 Sig: Inject 5 mg under the skin once a week. 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 Type 2 diabetes mellitus with hemoglobin A1c goal of less than 7.0% ([facility]) E11.9 Chronic sinusitis J32.9 Chronic rhinitis J31.0 Sleep apnea G47.30 Hypertriglyceridemia E78.1 Obesity, Class I, BMI 30.0-34.9 (see actual BMI) E66.9 Excessive weight gain R63.5 Current use of insulin ([facility]) Z79.4 History of nonmelanoma skin cancer Z85.828 Labs: Lab Results Component Value Date/Time CREATININE - [facility] 1.0 11/15/2022 09:02 AM CREATININE - [facility] 1.2 04/27/2019 11:30 AM CREATININE, RANDOM URINE - [facility] 125 11/15/2022 10:40 AM CREATININE, RANDOM URINE - [facility] 119 08/03/2017 11:15 AM Lab Results Component Value Date/Time POTASSIUM - [facility] 4.8 11/15/2022 09:02 AM POTASSIUM - [facility] 5.0 04/27/2019 11:30 AM Lab Results Component Value Date/Time TSH - [facility] 1.13 01/15/2014 01:04 PM Lab Results Component Value Date/Time LDL CHOLESTEROL (CALCULATED) - [facility] 30 11/15/2022 09:02 AM LDL CHOLESTEROL (CALCULATED) - [facility] UNINTERPRETABLE RESULT 08/15/2018 12:01 PM LDL CHOLESTEROL (CALCULATED) - [facility] 42 08/03/2017 11:09 AM LDL CHOLESTEROL (DIRECT MEASURE) - [facility] 64 12/29/2020 11:37 AM LDL CHOLESTEROL (DIRECT MEASURE) - [facility] 59 08/15/2018 12:01 PM LDL CHOLESTEROL (DIRECT MEASURE) - [facility] NOT APPLICABLE 08/03/2017 11:09 AM LDL CHOLESTEROL (DIRECT MEASURE) - [facility] 51 05/05/2015 10:26 AM Lab Results Component Value Date/Time ALT - [facility] 43 11/15/2022 09:02 AM ALT - [facility] 21 08/03/2017 11:09 AM Hemoglobin AIC Results: Lab Results Component Value Date/Time HEMOGLOBIN A1C - [facility] 7.5 (H) 11/15/2022 09:02 AM HEMOGLOBIN A1C - [facility] 6.5 (H) 10/04/2021 10:54 AM HEMOGLOBIN A1C - [facility] 6.7 (H) 07/05/2021 11:31 AM HEMOGLOBIN A1C - [facility] 7.1 (H) 12/04/2019 04:41 PM HEMOGLOBIN A1C - [facility] 7.4 (H) 04/27/2019 11:30 AM HEMOGLOBIN A1C - [facility] 7.7 (H) 08/15/2018 12:01 PM * Telephone Encounter - APOORVA Bassett - 04/11/2023 11:15 AM EDT Patient will need a refill for Mounjaro also. APOORVA Bassett documented in this encounter Plan of Treatment Upcoming Encounters Date Type Department Care Team (Late st Contact Info) Description 05/02/2023 2:30 PM EST Nutrition Services Nutrition & Weight Management, [facility] [address] [place] [address] [address] Arianna Rivera RDN [address] [place] [address] 05/19/2023 3:20 PM EST Office Visit Endocrinology, [place] [address] [facility] [place] [address] Mehul Paul MD [address] [place] [address] 05/30/2023 2:30 PM EST Nutrition Services Nutrition & Weight Management, [facility] [address] [place] [address] Arianna Rivera RDN [address] [place] [address] 06/09/2023 9:40 AM EST Office Visit Family Practice [facility] [address] [facility] [place] [address] Raman Monteiro III, MD [address] [facility] [place] [address] 07/11/2023 11:20 AM EST Nutrition Services Nutrition & Weight Management, [facility] [address] [place] [address] Arianna Rivera RDN [address] [place] [address] 08/15/2023 11:20 AM EST Nutrition Services Nutrition & Weight Management, [facility] [address] [facility] [address] Arianna Rivera RDN [address] [facility] [place] [address] 09/12/2023 11:20 AM EDT Nutrition Services Nutrition & Weight Management, [facility] [address] [place] [address] Arianna Rivera RDN [address] [place] [address] 10/12/2023 11:00 AM EDT Office Visit [facility] [address] [facility] [place] [address] Elizabeth Magaña MD [address] [place] [address] [place] [address] 02/13/2024 10:00 AM EDT Office Visit [facility] Disorders [facility] Loretta Yanez [place] [address] [place] [id number] Ankita Mckeon CRNP [address] [place] [address] Health Maintenance Due Date Last Done Comments Zoster Vaccines (1 of 2) 2005 Hepatitis B (1 of 3 - Risk 3-dose series) 2015 Depression Screening 08/15/2019 08/15/2018 Diabetic Foot Exam 06/30/2021 06/30/2020, 1 07/01/2018, 02/20/2018, Additional history exists DIABETES-EYE EXAM 01/19/2022 01/19/2021, , 05/18/2018, Additional history exists COVID-19 Vaccine (2022- season) 2023 06/05/2021, 09/08/2020, 08/12/2020 Influenza Vaccine [...] than 7.0% ([facility]) documented in this encounter Care Teams Thickener Operator Relationship Specialty Start Date End Date Raman Monteiro III, MD [address] [facility] [place] [address] PCP - General 10/10/02 documented as of this encounter
--- OUTSIDE RECORDS SUMMARY | 2023-06-16 14:13 | External Medical Summary | Summary of Care ---
Author Name Unknown Organization [facility] Address [address] [place] [address] Phone [phone] Care Team Providers Care Color Checker Roving Or Yarn Name Role Phone Cayetano CAT MD, Raman Durant Primary Care Provider [phone] Reason for Visit * Reason Onset Date Comments Appointment 10/05/2020 Encounter Details Date Type Department Care Team Description 10/05/2020 Telephone Pulmonary Medicine, [facility] [address] [place] [address] Ankita Mckeon CRNP [address] [facility] [place] [address] Appointment Allergies No known active allergiesdocumented as of this encounter (statuses as of 01/24/2023) Medications Medication Sig Dispensed Refills Start Date [...] blood sugar. 1 Kit 0 07/06/2020 Active [place] 3-6-9 CAPS 1 Tablet daily . 0 10/27/19 22 Discontinu ed(Patient preference /discontin uation) MEDICAL INSTRUCTIONS Use as directed. IWI Algae based omega --126 mg 0 10/27/19 22 Discontinu ed(Patient preference /discontin uation) BD PEN NEEDLE SHORT U/F 31G X 8 MM 0 02/11/2020 03/23/20 21 Discontinu ed(Medicat ion List Clean Up) Pen Westpoint 30G X 8 MM Inject daily E11.9 100 Each 11 04/13/2020 03/23/20 21 Discontinu ed(Medicat ion/Dose Changed) Accu-Chek Mansi Plus In Vitro Strip (Glucose Blood) TEST 4 TIMES DAILY NEEDED (E11.9) 400 Strip 3 06/30/2020 03/23/20 21 Discontinu ed(Medicat ion List Clean Up) Empagliflozin 25 MG Oral Tablet (Jardiance) Take 1 Tab by mouth daily. 90 Tab 3 06/30/2020 07/08/19 22 Discontinu ed(Refill) OneTouch Verio In Vitro Strip (Glucose Blood) Use up to 4 times a day E11.9 100 Strip 11 07/06/2020 07/08/19 22 Discontinu ed(Refill) Finasteride 1 MG Oral TabletIndications: Alopecia,High triglycerides Take 1 Tab by mouth daily. 90 Tab 3 09/01/2020 07/08/19 22 Discontinu ed(Refill) Carlosagldaniella Hidalgo 100 UNIT/ML Subcutaneous Solution Pen-injector (Insulin Glargine)Indicatio ns:Type 2 diabetes mellitus with hemoglobin A1c goal of less than 7.0% ([facility]) 44 units subcutaneously daily increase 1 unit daily am sugar over 120 Twelve pens for a 3 month supply. 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 documented as of this encounter (statuses as of 01/24/2023) Immunizations Name Administration Dates Next Due COVID-19 mRNA, LNP-s, No Pre serve, 2-Dose Series (Pfizer) 06/05/2021,09/08/2020,08/12/2020 Pneumococcal Conjugate Vacci ne, 20-valent ([id number]) 05/23/2022 Pneumococcal Polysaccharide PPV23 (Pneumovax) 01/19/2021,10/04/2012 Seasonal Influenza, Cell Cul ture, 18 Yrs & Older 04/24/2013 Seasonal Influenza, Quadriva lent Hd (Fluzone Hd) 04/28/2022,05/03/2021 Seasonal Influenza, Quadriva lent, No Preserve, 6 Mons & Above, IM 04/22/2019,04/06/2017 Seasonal Influenza, Quadriva lent, No Preserve, Adjuvanted, 65+ Yrs, IM 04/14/2020 Seasonal Influenza, Quadriva lent, No Preserve, IM [...] encounter Miscellaneous Notes * Telephone Encounter - APOORVA Mata - 01/24/2023 2:24 PM EDT Letter mailed 01/24/2023 * Telephone Encounter - APOORVA Salinas - 11/02/2020 3:33 PM EDT lmom * Telephone Encounter - APOORVA Salinas - 10/05/2020 3:43 PM EDT lmom to schedule Televideo 6 mos APOORVA, Tuesdays mid to late morning documented in this encounter Plan of Treatment Upcoming Encounters Date Type Specialty Care Team Description 03/07/2023 Nutrition Services Gastroenterology Arianna Rivera RDN [address] [facility] [place] [address] 04/04/2023 Nutrition Services Gastroenterology Arianna Rivera RDN [address] [place] [address] 05/02/2023 Nutrition Services Gastroenterology Arianna Rivera RDN [address] [place] [address] 05/19/2023 Office Visit Endocrinology Mehul Paul MD [address] [place] [address] 05/30/2023 Nutrition Services Gastroenterology Arianna Rivera RDN [address] [place], [place] [address] 06/09/2023 Office Visit Family Medicine [place] IIIRaman MD [address] [place] [address] 10/12/2023 Office Visit Dermatology Elizabeth Magaña MD [address] [place] [address] Health Maintenance Due Date Last Done Comments [...] filedocumented as of this encounter Care Teams Color Checker Roving Or Yarn Relationship Specialty Start Date End Date Raman Monteiro III, MD [address] [facility] [place] [address] PCP - General 10/10/02 documented as of this encounter
--- OUTSIDE RECORDS SUMMARY | 2023-06-16 14:13 | External Medical Summary | Summary of Care ---
Author Name Unknown Organization [facility] Address [address] [place] [address] Phone [phone] Care Team Providers Care Sports Leadership Instructor Name Role Phone Cayetano CAT MD, Raman Durant Primary Care Provider [phone] Reason for Visit * Reason Comments Weight Management Dietary Counseling Encounter Details Date Type Department Care Team Description 12/27/2022 Nutrition Services Nutrition & Weight Management, [facility] [address] [facility] [place] [address] Arianna Rivera RDN [address] [facility] [place] [address] Obesity, Class I, BMI 30.0-34.9 (see actual BMI)*; Type 2 diabetes, HbA1c goal < 7% ([facility]); Obstructive sleep apnea syndrome; BMI 33.0-33.9,adult Allergies No known active allergiesdocumented as of this encounter (statuses as of 12/27/2022) Medications Medication Sig Dispensed Refills Start Date [...] a week 0 Active OneTouch Delica Plus [id number] Use as directed. To test blood sugar 4x daily. 400 Each 3 2 Active Plenity Oral Capsule Take by mouth 3 Capsules 2 times a day 30 minutes before morning and evening meals . Take 16 oz of water 20 minutes later 100 Capsule 8 2 Active Additional Information Patient not taking.Reported on 11/22/2022 Mini [place]-3 Burp-Less 540 MG Oral Capsule Take by mouth . 0 Active Fish Oil 1000 MG Oral Capsule Take 1 Capsule by mouth in the morning. 0 Active traMADol HCl 50 MG Oral Tablet (Ultram)Indications: Chronic right-sided low back pain without sciatica Take by mouth 1 Tablet every 8 hours as needed for Pain, Moderate or Pain, Severe. 40 Tablet 1 2 Active Lisinopril 10 MG Oral Tablet (Prinivil) Take by mouth 1 Tablet in the morning. 90 Tablet 3 2 Active Insulin Glargine Solostar 100 UNIT/ML Subcutaneous Solution Pen-injector (Basaglar Rocky)Indications: Type 2 diabetes mellitus with hemoglobin A1c [...] DAY. 48 mL 2 3 Active Mounjaro 2.5 MG/0.5ML Subcutaneous Solution Pen-injector (Tirzepatide) Inject 2.5 mg under the skin once a week. For 4 weeks. 2 mL 0 3 11/08/19 24 Active Additional Information Patient not taking.Reported on 12/27/2022 Mounjaro 5 MG/0.5ML Subcutaneous Solution Pen-injector (Tirzepatide) Inject 5 mg under the skin once a week. After using 0.25 mg once a week for 4 weeks Do not start before December 09, 2022. 2 mL 3 3 12/09/19 24 Active Insulin Pen Needle 32G X 6 MM Use one needle daily for Basaglar injection and one additional needle weekly for Mounjaro injection. 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 documented as of this encounter (statuses as of 12/27/2022) Immunizations Name Administration Dates Next Due COVID-19 mRNA, LNP-s, No Pre serve, 2-Dose Series (Pfizer) 06/05/2021,09/08/2020,08/12/2020 Pneumococcal Conjugate Vacci ne, 20-valent ([id number]) 05/23/2022 Pneumococcal Polysaccharide PPV23 (Pneumovax) 01/19/2021,10/04/2012 Seasonal [...] Sign Reading Time Taken Comments Blood Pressure 118/66 12/27/2022 2:27 PM EDT Pulse 88 12/27/2022 2:27 PM EDT Temperature - - Respiratory Rate - - Oxygen Saturation - - Inhaled Oxygen Concentration - - Weight 108.4 kg (238 lb 14.4 oz) 12/27/2022 2:27 PM EDT Height - - Body Mass Index 33.32 11/08/2022 12:47 PM EDT documented in this encounter Progress Notes * Arianna Rivera RDN - 12/27/2022 2:30 PM EDT NUTRITION & WEIGHT MANAGEMENT Follow up [facility] Name: Jon Rahman Location: NUTRITION & WEIGHT MANAGEMENT, [facility] Date: 12/27/2022 Time: 9:16 AM Patient was identified at visit by name and date. Patient was seen [id number] in the clinic. NUTRITION ASSESSMENT SUBJECTIVE: 67 year old male is seen in the [facility] clinic for weight and nutrition support. Mustapha following with the [facility] office for several years. See past RD notes for further details of past visits. PMHx: DM, insulin dependent, very cognizant of BS levels, follows with endo for DM mgt. See past RD notes for complete pt hx. 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.9 Type 2 diabetes mellitus with hemoglobin A1c goal of less than 7.0% ([facility]) E11.9 Chronic sinusitis J32.9 Chronic rhinitis J31.0 Sleep apnea G47.30 Hypertriglyceridemia E78.1 Obesity, Class I, BMI 30.0-34.9 (see actual BMI) E66.9 Excessive weight gain R63.5 Current use of insulin ([facility]) Z79.4 History of nonmelanoma skin cancer Z85.828 12/27/22 -Routine monthly dietary return -On mounjaro .5 no GI upset -Upcoming trip to [place] this Monday -Been eating less -Feeling full [...] week at two different golf courses (in [place] and [facility]) 09/27/22 -on Prednisone forrecurringrash, wt up 7 lbs -Will be on pred for another week (5 days) -Will see dermatology at end of September for rash -Playing golf, knee and hip are feeling better 08/30/22 -Monthly dietary follow up -Reporting feeling tired, not sleeping well -Using CPAP -Feeling worn out and feels age is starting to catch up to him -Concerned about sugar alcohols related to strokeoccurences from recent [facility] study PRIOR NUTRITION COUNSELING: Weight Management Clinic FOOD ALLERGIES/INTOLERANCE ISSUES: None Describes typical diet history/24 hr recall Breakfast: Skips or uncrustable Snacks: Lunch: grilled chix salad or sandwich Snacks: Nuts Dinner: Ham steak, chix , steak or pasta Snacks: Pretzel Drinks: Iced Tea, water Alcohol: Infrequent Restaurant meals: once a week, twice a week DIET RECALL INDICATES: Poor meal distribution Inadequate fiber intake Inadequate fruit and vegetable intake Portion control PHYSICAL ACTIVITY: 114, 667 steps last week 93, 734 steps the week before 78, 352 steps the previous week Progress on goals from the previous month: Continue current POC: "layer" food intake: protein, fiber, carb last Prioritize resistance training paired with daily activity Continue on mounjaro to help with DM control and wt mgt ANTHROPOMETRICS: Initial clinic visit09/11/[id number] Height1.797 m (5' 10.75")Body mass index is36.83kg/m HIGHEST WEIGHT:272lbs Date: 2009 WT GOAL: 218 lbs MIRACLE WT: 241 lbs 11/22/22 CURRENT WT: 238 lbs WEIGHT CHANGES: -3 lbs since MIRACLE Wt Readings from Last 10 Encounters: 11/22/22 109.4 kg (241 lb 3.2 oz) 11/09/22 111 kg (244 lb 12.8 oz) 11/08/22 111.1 kg (245 lb) 11/01/22 109.7 kg (241 lb 12.8 oz) 09/27/22 111.5 kg (245 lb 12.8 oz) 08/30/22 108.3 kg (238 lb 11.2 oz) 08/02/22 109.5 kg (241 lb 8 oz) 07/05/22 106.1 kg (234 lb) 06/17/22 109.8 kg (242 lb) 06/08/22 110.3 kg (243 lb 3.2 oz) MNT: Calorie Controlled Diet, High Fiber Diet, Good Nutrition, Nutrient Dense Diet Patient is interested in the following treatment options for obesity: medical management. BARRIERS TO LEARNING: None SPECIAL EDUCATION NEEDS: None LABS: Pertinent lab studies have been reviewed. DAILY ENERGY/NUTRIENT NEEDS: Luann [id number] 1.3activity factor = 2480Kcals -->2000Kcals for weight loss Sedentary 1.2 Light 1.3 Moderate 1.5 Active 1.7 Very Active 1.9 AIBW: 189 lbs/ 86 kg Protein: 1.0 gm protein/kg (86 kg) = 80-90 gm protein/day Fluid: 25 mL/kg (86 kg) = 2150 mL/day KNOWLEDGE ASSESSMENT: adequate knowledge NUTRITION DIAGNOSIS Overweight/obesity related to excessive energy intake and physical inactivity as evidenced by BMI of 33.32 kg/m, Class I Obesity. NUTRITION INTERVENTION Continue current POC Continue on mounjaro to aid with DM control and weight loss INSTRUCTED PT ON THESE NUTRITION HANDOUTS: None given PATIENT GOALS: Continue current dietary POC EXPECTED OUTCOMES: Demonstrated interest in learning. Expect compliance with diet recommendations. PLAN: Scheduled in 4 weeks 30 min visit Arianna Rivera RDN documented in this encounter Nursing Notes * Areli Sandoval LPN - 12/27/2022 2:32 PM EDT Pt verified identity by last name and date. Chief Complaint Patient presents with Weight Management Dietary Counseling documented in this encounter Plan of Treatment Upcoming Encounters Date Type Specialty Care Team Description 01/31/2023 Nutrition Services Gastroenterology Arianna Rivera RDN [address] [place] [address] 03/07/2023 Nutrition Services Gastroenterology Arianna Rivera RDN [address] [place] [address] 04/04/2023 Nutrition Services Gastroenterology Arianna Rivera RDN [address] [place] [address] 05/02/2023 Nutrition Services Gastroenterology Arianna Rivera RDN [address] [place] [address] 05/19/2023 Office Visit Endocrinology Mehul Paul MD [address] [place] [address] 05/30/2023 Nutrition Services Gastroenterology Arianna Rivera RDN [address] [place] [address] 06/09/2023 Office Visit Family Medicine Lamou[place] Raman CAT MD [address] [place] [address] 10/12/2023 Office Visit Dermatology Elizabeth Magaña MD [address] [place] [address] Health Maintenance Due Date Last Done Comments [...] 04/14/2020, Additional history exists HbA1c 05/18/2023 11/15/2022, 0401/2022, 07/05/2021, Additional history exists Albumin/Creatinine Ratio 11/16/2023 [...] apnea syndrome Obstructive sleep apnea (adult) (pediatric) BMI 33.0-33.9,adult Body Mass Index 33.0-33.9, adult documented in this encounter Care Teams Sports Leadership Instructor Relationship Specialty Start Date End Date Raman Monteiro III, MD [address] [place] [address] PCP - General 10/10/02 documented as of this encounter
--- OUTSIDE RECORDS SUMMARY | 2023-06-16 14:13 | External Medical Summary | Summary of Care ---
Author Name Unknown Organization [facility] Address [address] [place] [address] Phone [phone] Care Team Providers Care Manufacturing Industrial Engineer Name Role Phone Cayetano CAT MD, Raman Durant Primary Care Provider [phone] Reason for Visit * Reason Comments Follow Up Encounter Details Date Type Department Care Team Description 02/07/2023 Office Visit [facility] [place] [address] Ankita Mckeon CRNP [address] [place] [address] APOORVA on CPAP* Allergies No known active [...] a week 0 Active OneTouch Delica Plus [id number] Use as directed. To test blood sugar 4x daily. 400 Each 3 2 Active Plenity Oral Capsule Take by mouth 3 Capsules 2 times a day 30 minutes before morning and evening meals . Take 16 oz of water 20 minutes later 100 Capsule 8 2 Active Mini [place]-3 Burp-Less 540 MG Oral Capsule Take by [...] mRNA, LNP-s, No Pre serve, 2-Dose Series ([employer]) 06/05/2021,09/08/2020,08/12/2020 Pneumococcal Conjugate Vacci ne, 20-valent ([id number]) 05/23/2022 Pneumococcal Polysaccharide PPV23 (Pneumovax) 01/19/2021,10/04/2012 Season [...] ИВАН Bower - 02/07/2023 10:15 AM EDT [facility] Jon Rahman is a [...] his daughter's. Recently received a travel unit ([employer]) for use when he's away from home [...] Average hours per day used: 6 hours 35 mins Large leak: none rAHI: 3 nights with AHI >5 Equipment: DME Provider: [employer] Device: Pictorious Settings: 6-15 cmH20 Interface Type: nasal Humidifier: [...] A1c goal of less than 7.0% ([facility]) E11.9 Chronic sinusitis J32.9 Chronic rhinitis J31.0 Sleep apnea G47.30 Hypertriglyceridemia E78.1 Obesity, Class I, BMI 30.0-34.9 (see actual BMI) E66.9 Excessive weight gain R63.5 Current use of insulin ([facility]) Z79.4 History of nonmelanoma skin [...] TAKE 1 TABLET TWICE DAILY WITH MEALS OneTouch ClassBadges In Vitro Strip (Glucose Blood) USE UP TO 4 TIMES DAILY. DX: E11.9 Rosuvastatin Calcium 20 MG Oral Tablet (Crestor) TAKE 1 TABLET BY MOUTH DAILY. traMADol HCl 50 MG Oral Tablet (Ultram) Take by mouth 1 Tablet every 8 hours as needed for Pain, Moderate or Pain, Severe. Mini [place]-3 Burp-Less 540 MG Oral Capsule Take by mouth . Plenity Oral Capsule Take by mouth 3 Capsules 2 times a day 30 minutes before morning and evening meals . Take 16 oz of water 20 minutes later B-Complex Oral Tablet Take by mouth. 2-3 times a week OneToInExchange Plus [id number] Use as directed. To test blood sugar 4x daily. Levocetirizine Dihydrochloride 5 MG Oral Tablet Take 1 Tablet by mouth in the morning. Vitamin B-12 1000 MCG Oral Tablet Take 1 Tablet by mouth in the morning. Fluocinonide 0.05 % External Cream Apply to bug bites twice daily x 3-4 days as needed for itching. [employer] Reflect w/Device Kit Use as directed. To [...] impaired. ИВАН [facility] I spent a total of 30-39 minutes (exact time 30 mins) on the date of service in preparation, delivery, and documentation of the care provided to Jon Rahman excluding any time spent in the performance of separately billed services. documented in this encounter Nursing Notes * Nova Garcia LPN - 02/07/2023 10:11 AM EDT [facility] NOTES: Jon Rahman : 1955 MR: [id number] The patient was identified by name and [...] Rivera RDN [address] [place] [address] 04/04/2023 Nutrition Services Gastroenterology Arianna Rivera RDN [address] [place] [address] 05/02/2023 Nutrition Services Gastroenterology Arianna Rivera RDN [address] [place] [address] 05/19/2023 Office Visit Endocrinology Mehul Paul MD [address] [place] [address] 05/30/2023 Nutrition Services Gastroenterology Arianna Rivera RDN [address] [place] [address] 06/09/2023 Office Visit Family Medicine Cayetano IIIRaman MD 200 [place] [address] 10/12/2023 Office Visit Dermatology Elizabeth Magaña MD 200 [facility] [place] [address] 02/13/2024 Office Visit Sleep Disorders Ankita Mckeon CRNP [address] [place] [address] Health Maintenance Due Date Last Done Comments [...] (pediatric) documented in this encounter Care Teams Manufacturing Industrial Engineer Relationship Specialty Start Date End Date Raman Monteiro III, MD [address] [place] [address] PCP - General 10/10/02 documented as of this encounter
--- OUTSIDE RECORDS SUMMARY | 2023-06-16 14:13 | External Medical Summary | Summary of Care ---
Author Name Unknown Organization [facility] Address [address] [place] [address] Phone [phone] Care Team Providers Care Sandwich Wrapper Name Role Phone Cayetano CAT MD, Raman Primary Care Provider [phone] Reason for Visit * Reason Comments eRx-Medication Refill Encounter Details Date Type Department Care Team Description 01/17/2023 [address], [facility] [place] [address] Angelito Cheney MD 132 [facility] [place] [address] Type 2 diabetes mellitus with hemoglobin A1c goal of less than 7.0% ([facility])*; Hypertriglyceridemia Allergies No known active allergiesdocumented as of this encounter (statuses as of 01/17/2023) Medications Medication Sig Dispensed Refills Start Date [...] test blood sugar. 1 Kit 0 07/06/19 Active Fluocinonide 0.05 % External Cream Apply [...] a week 0 Active OneTouch Delica Plus [id number] Use as directed. To test blood sugar 4x daily. 400 Each 3 07/08/19 Active Plenity Oral Capsule Take by mouth 3 Capsules 2 times a day 30 minutes before morning and evening meals . Take 16 oz of water 20 minutes later 100 Capsule 8 08/12/19 Active Additional Information Patient not taking.Reported on 11/22/2022 Mini [place]-3 Burp-Less 540 MG Oral Capsule Take by mouth . 0 Active Fish Oil 1000 MG Oral Capsule Take 1 Capsule by mouth in the morning. 0 Active traMADol HCl 50 MG Oral Tablet (Ultram)Indications :Chronic right-sided low back pain without sciatica Take by mouth 1 Tablet every 8 hours as needed for Pain, Moderate or Pain, Severe. 40 Tablet 1 12/30/19 Active Insulin Glargine Solostar 100 UNIT/ML Subcutaneous Solution Pen-injector (Basaglar AbilioikSeth)Indications :Type 2 diabetes mellitus with hemoglobin A1c goal of less than 7.0% ([facility]) INJECT 50 UNITS SUBCUTANEOUSLY DAILY; INCREASE 1 UNIT DAILY IN THE MORNING FOR SUGAR OVER 120. 45 mL 3 06/03/20 22 Active metFORMIN HCl 1000 MG Oral Tablet (Glucophage)Indicat ions:Type 2 diabetes mellitus with hemoglobin A1c goal of less than 7.0% (HCC) TAKE 1 TABLET TWICE DAILY WITH MEALS 180 Tablet 3 06/03/20 22 Active Rosuvastatin Calcium 20 MG Oral Tablet (Crestor)Indication s:Hypertriglyceride allie TAKE 1 TABLET BY MOUTH DAILY. 90 Tablet 3 06/03/20 22 Active Jardiance 25 MG Oral Tablet (Empagliflozin)Gail cations:Type 2 diabetes mellitus with hemoglobin A1c goal of less than 7.0% (HCC) TAKE 1 TABLET BY MOUTH DAILY. 90 Tablet 3 06/03/20 Active Fenofibrate Micronized 134 MG Oral CapsuleIndications: Hypertriglyceridemi a TAKE 1 CAPSULE BY MOUTH DAILY 90 Capsule 3 06/03/20 Active OneTouch Verio In Vitro Strip (Glucose Blood)Indications:T ype 2 diabetes mellitus with hemoglobin A1c goal of less than 7.0% (HCC),Hypertriglyce ridemia USE UP TO 4 TIMES DAILY. DX: E11.9 400 Strip 3 06/03/20 Active Triamcinolone Acetonide 0.1 % External Cream (Aristocort)Indicat ions:Rash Apply topically to affected area 2 times a day as needed for Itching (rash). To affected area on torso, arms, etc. As needed. 60 g 2 09/24/19 23 Active Finasteride 1 MG Oral TabletIndications:A lopecia,High triglycerides TAKE ONE TABLET BY MOUTH EVERY MORNING 90 Tablet 2 10/12/19 23 Active Fluticasone Propionate 50 MCG/ACT Nasal Suspension (Flonase) ADMINISTER 2 SPRAYS INTO EACH NOSTRIL 2 TIMES A DAY. 48 mL 2 11/01/19 23 Active Mounjaro 2.5 MG/0.5ML Subcutaneous Solution Pen-injector (Tirzepatide) Inject 2.5 mg under the skin once a week. For 4 weeks. 2 mL 0 11/09/19 23 024 Active Additional Information Patient not taking.Reported on 12/27/2022 Mounjaro 5 MG/0.5ML Subcutaneous Solution Pen-injector (Tirzepatide) Inject 5 mg under the skin once a week. After using 0.25 mg once a week for 4 weeks Do not start before December 09, 2022. 2 mL 3 12/10/19 23 024 Active Insulin Pen Needle 32G X 6 MM Use one needle daily for Basaglar injection and one additional needle weekly for Mounjaro injection. (total of 8 needles weekly) 50 Each 5 11/25/19 23 Active Lisinopril 10 MG Oral Tablet (Prinivil)Indicatio ns:Type 2 diabetes mellitus with hemoglobin A1c goal of less than 7.0% (HCC),Hypertriglyce ridemia TAKE 1 TABLET BY MOUTH DAILY IN THE MORNING 90 Tablet 2 01/18/20 23 Active Lisinopril 10 MG Oral Tablet (Prinivil) Take by mouth 1 Tablet in the morning. 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 documented as of this encounter (statuses as of 01/17/2023) Immunizations Name Administration Dates Next Due COVID-19 mRNA, LNP-s, No Pre serve, 2-Dose Series ([employer]) 06/05/2021,09/08/2020,08/12/2020 Pneumococcal Conjugate Vacci ne, 20-valent ([id number]) 05/23/2022 Pneumococcal Polysaccharide PPV23 (Pneumovax) 01/19/2021,10/04/2012 Seasonal [...] encounter Miscellaneous Notes * Telephone Encounter - Angelito Cheney MD - 01/17/2023 11:09 AM EDTSigned Prescriptions: Disp Refills Lisinopril 10 MG Oral Tablet (Prinivil) 90 Tab*2 Sig: TAKE 1 TABLET BY MOUTH DAILY IN THE MORNING Authorizing Provider: ANGELITO CHENEY * Telephone Encounter - Leslie Chang CMA - 01/17/2023 10:52 AM EDTPending Prescriptions: Disp Refills Lisinopril 10 MG Oral Tablet [Pharmacy Med*90 Tab*2 Sig: TAKE 1 TABLET BY MOUTH DAILY IN THE MORNING * Telephone Encounter - Leslie Chang CMA - 01/17/2023 10:51 AM EDT Did you pend patient's preferred pharmacy and medication before forwarding?yes Pharmacy: [facility]- [place] Pending Prescriptions: Disp Refills Lisinopril 10 MG Oral Tablet (Prinivil) [*90 Tab*2 Sig: TAKE 1 TABLET BY MOUTH DAILY IN THE MORNING Last Visit: 12/29/2021 (in office), Visit date not found (telemedicine) Next Visit: Visit date not found If no future appointments scheduled, and last appointment is greater than a year ago, please schedule patient for a follow-up appointment Last date the medication was ordered: Is this request for a controlled substance?No Urine Drug Screen:No results found. However, due to the size of the patient record, not all encounters were searched. Please check Results Review for a complete set of results. Patient Phone Numbers Labs: Lab Results Component Value Date/Time CREAT 1.0 11/15/2022 09:02 AM CREAT 1.2 04/27/2019 11:30 AM POTASSIUM 4.8 11/15/2022 09:02 AM POTASSIUM 5.0 04/27/2019 11:30 AM TSH 1.13 01/15/2014 01:04 PM LDLCALC 30 11/15/2022 09:02 AM LDLCALC UNINTERPRETABLE RESULT 08/15/2018 12:01 PM LDLDIRECT 64 12/29/2020 11:37 AM LDLDIRECT 59 08/15/2018 12:01 PM LDLDIRECT 51 05/05/2015 10:26 AM ALT 43 11/15/2022 09:02 AM ALT 21 08/03/2017 11:09 AM HGBA1C 7.5 (H) 11/15/2022 09:02 AM HGBA1C 7.1 (H) 12/04/2019 04:41 PM documented in this encounter Plan of Treatment Upcoming Encounters Date Type Specialty Care Team Description 01/31/2023 Nutrition Services Gastroenterology Arianna Rivera RDN [address] [place] [address] 03/07/2023 Nutrition Services Gastroenterology Arianna Rivera RDN [address] [place] [address] 04/04/2023 Nutrition Services Gastroenterology Arianna Rivera RDN [address] [place] [address] 05/02/2023 Nutrition Services Gastroenterology Arianna Rivera RDN [address] [place] [address] 05/19/2023 Office Visit Endocrinology Mehul [place] MD [address] [place] [address] 05/30/2023 Nutrition Services Gastroenterology Arianna Rivera RDN [address] [place] [address] 06/09/2023 Office Visit Family Medicine Cayetano Raman CAT MD [address] [place], [place] [address] 10/12/2023 Office Visit Dermatology Elizabeth Mgaaña MD [address] [place] [address] Health Maintenance Due Date Last Done Comments [...] goal of less than 7.0% (HCC)- Primary Hypertriglyceridemia Pure hyperglyceridemia documented in this encounter Care Teams Sandwich Wrapper Relationship Specialty Start Date End Date Raman Monteiro III, MD [address] [place] [address] PCP - General 10/10/02 documented as of this encounter
--- OUTSIDE RECORDS SUMMARY | 2023-06-16 14:13 | External Medical Summary | Summary of Care ---
Author Name Unknown Organization [facility] Address [address] [place] [address] Phone [phone] Care Team Providers Care Aquatic Biologist Name Role Phone Cayetano CAT MD, Grace Durant Primary Care Provider [phone] Reason for Visit * Reason Comments eRx-Medication Refill Encounter Details Date Type Department Care Team Description 02/01/2023 Refill Family Practice [facility] [address] [place] [address] Grace Lynch III, MD 200 [place] [address] Allergies No known active allergiesdocumented as of this encounter (statuses as of 02/02/2023) Medications Medication Sig Dispensed Refills Start Date [...] by mouth. 1200 mg daily 0 Active ChartSpan Medical TechnologiesTouch Verio Reflect w/Device Kit Use as directed. [...] a week 0 Active OneTouch Delica Plus [id number] Use as directed. To test blood sugar 4x daily. 400 Each 3 07/08/19 22 Active Plenity Oral Capsule Take by mouth 3 Capsules 2 times a day 30 minutes before morning and evening meals . Take 16 oz of water 20 minutes later 100 Capsule 8 08/12/19 22 Active Additional Information Patient not taking.Reported on 11/22/2022 Mini [place]-3 Burp-Less 540 MG Oral Capsule Take by mouth . 0 Active Fish Oil 1000 MG Oral Capsule Take 1 Capsule by mouth in the morning. 0 Active traMADol HCl 50 MG Oral Tablet (Ultram)Indications :Chronic right-sided low back pain without sciatica Take by mouth 1 Tablet every 8 hours as needed for Pain, Moderate or Pain, Severe. 40 Tablet 1 12/30/19 22 Active Insulin Glargine Solostar 100 UNIT/ML Subcutaneous [...] DAILY. 90 Tablet 3 06/03/20 22 Active Fenofibrate Micronized 134 MG Oral CapsuleIndications: Hypertriglyceridemi a TAKE 1 CAPSULE BY MOUTH DAILY 90 Capsule 3 06/03/20 22 Active OneTouch Verio In Vitro Strip (Glucose Blood)Indications:T ype 2 diabetes mellitus with hemoglobin A1c goal of less than 7.0% (HCC),Hypertriglyce ridemia USE UP TO 4 TIMES DAILY. DX: E11.9 400 Strip 3 06/03/20 22 Active Triamcinolone Acetonide 0.1 % External Cream [...] 2 mL 3 12/10/19 23 024 Active Lisinopril 10 MG Oral Tablet (Prinivil)Indicatio [...] WEEKLY) 100 Each 3 02/03/20 23 Active Insulin Pen Needle 32G X 6 MM Use one needle daily for Basaglar injection and one additional needle weekly for Mounjaro injection. 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 documented as of this encounter (statuses as of 02/02/2023) Immunizations Name Administration Dates Next Due COVID-19 mRNA, LNP-s, No Pre serve, 2-Dose Series ([employer]) 06/05/2021,09/08/2020,08/12/2020 Pneumococcal Conjugate Vacci ne, 20-valent ([id number]) 05/23/2022 Pneumococcal Polysaccharide PPV23 (Pneumovax) 01/19/2021,10/04/2012 Seasonal [...] encounter Miscellaneous Notes * Telephone Encounter - Olivia Brown RPh - 02/02/2023 12:28 PM EDT Reissued balance of refills on current medication order(s) as a 90 day script. Thanks, Augie Eddy.Ph. Clinical Pharmacist [facility] [phone] 02/02/2023,12:27 PM * Telephone Encounter - Olivia Brown RPh - 02/02/2023 12:28 PM EDTSigned Prescriptions: Disp Refills BD Pen Needle Micro U/F 32G X 6 MM (NOVOFI*100 Ea*3 Sig: USE 1 NEEDLE FOR BASAGLAR INJECTION AND 1 ADDITIONAL NEEDLE WEEKLY FOR MOUNJARO INJECTION (TOTAL OF 8 NEEDLES WEEKLY) Authorizing Provider: GRACE LYNCH III Ordering User: OLIVIA BROWN documented in this encounter Plan of Treatment Upcoming Encounters Date Type Specialty Care Team Description 03/07/2023 Nutrition Services Gastroenterology Arianna Rivera RDN [address] [place] [address] 04/04/2023 Nutrition Services Gastroenterology Arianna Rivera RDN [address] [place] [address] 05/02/2023 Nutrition Services Gastroenterology Arianna Rivera RDN [address] [place] [address] 05/19/2023 Office Visit Endocrinology Meuhl Paul MD [address] [place] [address] 05/30/2023 Nutrition Services Gastroenterology Arianna Rivera RDN [address] [place] [address] 06/09/2023 Office Visit Family Medicine Grace Lynch III, MD [address] [place] [address] 10/12/2023 Office Visit Dermatology Elizabeth Magaña MD [address] [place] [address] Health Maintenance Due Date Last Done Comments [...] filedocumented as of this encounter Care Teams Aquatic Biologist Relationship Specialty Start Date End Date Cayetano CAT, Grace Durant MD [address] [place] [address] PCP - General 10/10/02 documented as of this encounter
--- OUTSIDE RECORDS SUMMARY | 2023-06-16 14:13 | External Medical Summary | Summary of Care ---
Author Name Unknown Organization [facility] Address [address] [place] [address] Phone [phone] Care Team Providers Care Plain Goods Hemmer Name Role Phone Cayetano CAT MD, Raman Primary Care Provider [phone] Reason for Visit * Reason Onset Date Comments Medication Refill 01/17/2023 Encounter Details Date Type Department Care Team Description 01/17/2023 [facility]ill [facility] [place] [address] Victor Hugo Cheney MD 132 [facility] [place] [address] Type 2 diabetes mellitus with hemoglobin A1c goal of less than 7.0% ([facility]); Hypertriglyceridemia Allergies No known active allergiesdocumented as [...] a week 0 Active OneTouch Delica Plus [id number] Use as directed. To test blood sugar 4x daily. 400 Each 3 2 Active Plenity Oral Capsule Take by mouth 3 Capsules 2 times a day 30 minutes before morning and evening meals . Take 16 oz of water 20 minutes later 100 Capsule 8 2 Active Additional Information Patient not taking.Reported on 11/22/2022 Mini [place]-3 Burp-Less 540 MG Oral Capsule Take by [...] needles weekly) 50 Each 5 3 Active Lisinopril 10 MG Oral Tablet (Prinivil)Indication s:Type 2 diabetes mellitus with hemoglobin A1c goal of less than 7.0% (HCC),Hypertriglycer idemia TAKE 1 TABLET BY MOUTH DAILY IN THE MORNING 90 Tablet 2 3 Active documented as of this encounter [...] (Pfizer) 06/05/2021,09/08/2020,08/12/2020 Pneumococcal Conjugate Vacci ne, 20-valent ([id number]) 05/23/2022 Pneumococcal Polysaccharide PPV23 (Pneumovax) 01/19/2021,10/04/2012 Seasonal [...] Arianna Rivera RDN [address] [place] [address] 03/07/2023 Nutrition Services Gastroenterology Arianna Rivera RDN [address] [place] [address] 04/04/2023 Nutrition Services Gastroenterology Arianna Rivera RDN [address] [place] [address] 05/02/2023 Nutrition Services Gastroenterology Arianna Rivera RDN [address] [place] [address] 05/19/2023 Office Visit Endocrinology Mehul Paul MD [address] [place] [address] 05/30/2023 Nutrition Services Gastroenterology Arianna Rivera RDN [address] [place] [address] 06/09/2023 Office Visit Family Medicine Cayetano Raman CAT MD [address] [place] [address] 10/12/2023 Office Visit Dermatology Elizabeth Magaña MD [address] [place] [address] Health Maintenance Due Date Last Done Comments [...] hyperglyceridemia documented in this encounter Care Teams Plain Goods Hemmer Relationship Specialty Start Date End Date Raman Monteiro III, MD [address] [place] [address] [place] [address] PCP - General 10/10/02 documented as of this encounter
[2023-06-16 14:34] LABS: Thyroid Stimulating Hormone 1.411 uIu/ml (0.300-4.500)
[2023-06-16] MEDS ORDERED: OXYMETAZOLINE 0.05% 30 ML BTL NAE PRN (15:55)
[2023-06-16 16:10] LABS: Appearance Urine Clear (Clear); Bilirubin Urine Negative (Negative); Blood Urine Negative (Negative); Color Urine Yellow; Glucose Urine UA 2+ (Negative); Ketones Urine Negative (Negative); Leukocyte Esterase Urine Negative (Negative); Nitrite Urine Negative (Negative); Protein Urine Negative (Negative); Specific Gravity Urine > 1.045 (1.000-1.030); Urobilinogen Urine Negative (Negative)
[2023-06-16] MEDS ORDERED: MAGNESIUM HYDROXIDE SUSP 30 ML UDC PO PRN (16:22)
[2023-06-16] MEDS ORDERED: POLYETHYLENE (MIRALAX) 17 GM PACK PO PRN (16:22)
[2023-06-16] MEDS ORDERED: PHARMACIST DISCHARGE MED REC CONSULT PRN (16:22)
[2023-06-16] MEDS ORDERED: GLUCOSE 10 TAB/TUBE PO PRN (16:22)
[2023-06-16] MEDS ORDERED: GLUCAGON FOR INJ 1 MG VIAL SQ PRN (16:22)
[2023-06-16] MEDS ORDERED: CARBOHYDRATES FOR HYPOGLYCEMIA PO PRN (16:22)
[2023-06-16] MEDS ORDERED: ONDANSETRON INJ 2 MG/ML 2 ML VIAL IV PRN (16:22)
[2023-06-16] MEDS ORDERED: ACETAMINOPHEN 325 MG TAB PO PRN (16:22)
[2023-06-16] MEDS ORDERED: GLUCOSE 40% GEL 15 GM TUBE PO PRN (16:22)
[2023-06-16] MEDS ORDERED: DEXTROSE 50% 50 ML SYRINGE IV PRN (16:22)
[2023-06-16] MEDS: FLUTICASONE PROPIONATE NA SPR 16 GM BTL SCH (17:12)
[2023-06-16] MEDS: ENOXAPARIN INJ 40 MG/0.4 ML SYR SQ SCH (17:13)
[2023-06-16 17:17] LABS: Influenza A virus by PCR Negative (Neg); Influenza B virus by PCR Negative (Neg); SARS CoV2 RNA(COVID-19) Ceph NEGATIVE (Negative)
[2023-06-16 17:24] LABS: RSV by PCR Positive (Neg)
--- NOTE | 2023-06-16 19:11 | Neurology Consultation ---
Date of Consultation June 16, 2023 Assessment & Plan (1) Altered mental status: Transient changes in mentation- with rapid return to baseline appears likely secondary to effects of inadequate oxygenation during sleep/sleep deprivation Recommend MRI brain with and without contrast Recommend continue infectious/metabolic workup Recommend continue to monitor mentation Continue to monitor telemetry Provide positive airway pressure mask at times of sleep VTE prophylaxis Telehealth Consultation Telehealth Information Telehealth Information: I performed this visit using a real-time telehealth connection between my location and the patients location ([facility]). After connecting through interactive tele-video, patient was identified by name and date of and/or wristband check.Patient (or authorized healthcare pharmaceutical service representative) was informed that this was a telemedicine visit and it was being conducted confidentially over secure lines. My office door was closed and no one else was present in the room with me.Patient (or authorized healthcare pharmaceutical service representative) provided consent to proceed with the visit, expressed an understanding of privacy and security of the telemedicine visit, and gave permission to have a hospital pharmaceutical service representative in the room in order to assist with the visit and to conduct portions of the visit, as needed. I informed the patient (or authorized healthcare pharmaceutical service representative) that I reviewed their record and presented the opportunity for them to ask any questions regarding the visit today. The patient agreed to participate. History of Present Illness Reason for Consultation: Transient episode of decreased memory Requesting Physician: Dr. Penny Attending Physician: Katie Penny, History of Present Illness 68yo male presented after suffering episode of transient memory loss. Has significant past medical history of APOORVA DM HTN reports having symptoms of URI used noesynephrine nasal spray repeatedly over the last day or so and had difficulty breathing and sleeping overnight. Reports taking CPAP off for portion of the night as well. 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 States he awoke at 8:30 and felt "foggy" and couldn't think clearly or remember recent events. He states had an appointment listed on his schedule at 10am this morning but could not remember what the appointment was for or who he was meeting. States he could see the time and the name but could not recollect the reason for the meeting. Notably he then returned to baseline and remains at baseline at this time. He does report that he was meeting with a person that was replacing another person on a planning board therefore the usual person on that planning board was not listed, instead he had the new person/replacement listed as the scheduled meeting. NIHSS=0 Currently denies pain or complaint other than ongoing nasal congestion No reported cephalgia or cervicalgia Denies chest pain/palpitations or shortness of breath No reported changes in vision hearing dizziness syncope seizure like activity or paresthesia Denies recent fevers chills nausea vomiting changes in bowels or bladder No reported recent travel Allergies Allergy/AdvReac Type Severity Reaction Status Date / Time No Known Allergies Allergy Unknown Verified 11/30/21 06:56 Home Medications Medication Instructions Recorded Confirmed Type fenofibrate micronized 134 mg 134 mg PO PM 10/29/21 06/16/23 History capsule finasteride 1 mg tablet 1 mg PO QAM 10/29/21 06/16/23 History insulin glargine 100 unit/mL (3 33 unit subcut QAM 10/29/21 06/16/23 History mL) subcutaneous pen (Basaglar KwikPen U-100 Insulin) metformin 1,000 mg tablet 1,000 mg PO BID 10/29/21 06/16/23 History rosuvastatin 20 mg tablet 20 mg PO QAM 10/29/21 06/16/23 History ascorbic acid (vitamin C) 1,000 mg 1 g PO DAILY 06/16/23 06/16/23 History tablet (Vitamin C) aspirin 81 mg tablet,delayed 81 mg PO DAILY 06/16/23 06/16/23 History release (Leydi Low Dose Aspirin) cholecalciferol (vitamin D3) 50 50 mcg PO DAILY 06/16/23 06/16/23 History mcg (2,000 unit) tablet (Vitamin D3) empagliflozin 25 mg tablet 25 mg PO DAILY 06/16/23 06/16/23 History (Jardiance) lisinopril 10 mg tablet 10 mg PO DAILY 06/16/23 06/16/23 History tirzepatide 7.5 mg/0.5 mL 7.5 mg subcut WK 06/16/23 06/16/23 History subcutaneous pen injector (Mounjaro) vitamin B complex 1 tab PO DAILY 06/16/23 06/16/23 History Patient History Medical History Encounter for pre-operative examination Arthritis Heartburn Diabetes mellitus, type 2 IDDM Hx of basal cell carcinoma Diabetic neuropathy Sleep apnea CPAP (compliant) High cholesterol Contusion of rib on right side Contusion of right shoulder Surgical History History of esophagogastroduodenoscopy (EGD) History of colonoscopy History of transurethral resection of prostate History of tooth extraction Family History Mother Family history of diabetes mellitus Father Family history of diabetes mellitus Other No family history of adverse response to anesthesia Social History Smoking Status: Never smoker Second Hand Exposure: Yes ( A CHILD); Do You Dip or Chew Tobacco: No; Hx Alcohol Use: Yes Preferred Language: Chilean Communication Ability: Effective 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 Oriented to person, place, and time. Fluency naming repetition and comprehension appear grossly intact. Affect remains appropriate. CN testing: I: Denies changes in ability to smell II:Reports no changes in visual acuity III/IV/: No evidence of gaze preference, hippus, nystagmus or roving eye movements V: Facial sensation reportedly grossly intact to light touch bilaterally VII: Facial movements appear without evidence of asymmetry VIII: Hearing appears grossly intact to loud voice bilaterally IX/X: Palate appears to elevate symmetrically XI: Shoulder shrug appears symmetric/ grossly intact bilaterally XII: Tongue protrudes midline without evidence of biting Motor exam: Strength appears grossly intact/symmetric in all extremities Sensory: Sensation is reportedly grossly intact throughout Coordination: Finger to nose and heel to bennett were intact. No apparent evidence of dysmetria or dysdiadochokinesia Reflexes: Deferred Gait: Deferred Results & Data Vital Signs (Past 12 Hours) Vital Signs Temp Pulse Pulse Resp BP BP Pulse Ox 06/16/23 16:57 89 18 129/72 97 06/16/23 16:57 06/16/23 16:36 90 06/16/23 16:22 93 H 18 132/83 96 06/16/23 16:08 91 H 18 132/83 96 06/16/23 09:57 36.6 C 101 H 18 140/79 98 Pulse Ox O2 Del Method O2 Del Method 06/16/23 16:57 Room Air 06/16/23 16:57 97 Room Air 06/16/23 16:36 06/16/23 16:22 Room Air 06/16/23 16:08 Room Air 06/16/23 09:57 Room Air Laboratory Results Abnormal lab results 06/16/23 06/16/23 06/16/23 Range/Units 10:01 10:10 16:24 WBC 12.38 H (4.8-10.8) K/ul RBC 6.30 H (4.70-6.10) M/uL Hct 52.4 H (42.0-52.0) % RDW Coeff of Rachna 14.6 H (11.5-14.5) % Neut # (Auto) 10.15 H (1.40-6.50) K/uL Lymph # (Auto) 0.82 L (1.20-3.40) K/uL Greer # (Auto) 1.13 H (0.11-0.59) K/uL Glucose 141 H (70-99(Fasting)) mg/dl POC Glucose 148 H (70-99) mg/dl AST 46 H (13-39) U/L ALT 65 H (7-52) U/L Ur Specific Stuart (1.000-1.030) Urine Glucose (UA) (Negative) RSV (RT-PCR) Positive A* (Neg) 06/16/23 06/16/23 Range/Units 17:18 Unknown WBC (4.8-10.8) K/ul RBC (4.70-6.10) M/uL Hct (42.0-52.0) % RDW Coeff of Rachna (11.5-14.5) % Neut # (Auto) (1.40-6.50) K/uL Lymph # (Auto) (1.20-3.40) K/uL Greer # (Auto) (0.11-0.59) K/uL Glucose (70-99(Fasting)) mg/dl POC Glucose 107 H (70-99) mg/dl AST (13-39) U/L ALT (7-52) U/L Ur Specific Stuart > 1.045 H (1.000-1.030) Urine Glucose (UA) 2+ H (Negative) RSV (RT-PCR) (Neg) Diagnostic Findings Head CT 06/16/23 10:41 CT angio head w con, CT angio neck with con, CT head/brain wo con CLINICAL HISTORY: 68 years-old Male with poss stroke. Acute shocklike symptoms COMPARISON STUDY: None TECHNIQUE: Unenhanced axial CT scan of the brain is performed. Subsequently, following the IV administration of 116 cc of Optiray, CT angiogram of the head and neck was performed from the aortic arch to the skull apex. Images are reviewed in the axial, sagittal, and coronal planes. 3-D MIPS images are created and assessed. IV contrast was administered without complication. All measurements were obtained according to NASCET criteria. A dose lowering technique was utilized adhering to the principles of ALARA. CT DOSE: 1761.1 mGy.cm FINDINGS: CT BRAIN: There is no acute intracranial hemorrhage, midline shift, hydrocephalus, intracranial mass, territorial ischemia or abnormal extra-axial collections. Suggestion of mild chronic microvascular ischemic disease. No abnormal intra- axial or extra-axial enhancement. Mastoid air cells and middle ear cavities are clear. No calvarial fracture. Mild mucosal thickening of the paranasal sinuses. CT ANGIOGRAM OF THE HEAD AND NECK: Patent innominate and subclavian arteries. The common and internal carotid arteries are patent. The bilateral anterior and middle cerebral arteries are also patent. The vertebrobasilar system and posterior cerebral arteries are widely patent. There is no aneurysm, high-grade stenosis, or proximal branch occlusion identified. Dural sinuses appear patent. Lung apices are clear. Unremarkable soft tissues. Chronic right clavicular fracture deformity. No acute fracture. IMPRESSION: 1. No acute intracranial abnormality. 2. Unremarkable CTA of the head and neck. 3. Mild mucosal thickening of the paranasal sinuses. ACT 112: Negative or not required by law. The above report was generated using voice recognition software. It may contain grammatical, syntax or spelling errors. Electronically signed by: Jc Pitt M.D. 06/16/2023 11:43 AM Head CTA 06/16/23 10:41 CT angio head w con, CT angio neck with con, CT head/brain wo con CLINICAL HISTORY: 68 years-old Male with poss stroke. Acute shocklike symptoms COMPARISON STUDY: None TECHNIQUE: Unenhanced axial CT scan of the brain is performed. Subsequently, following the IV administration of 116 cc of Optiray, CT angiogram of the head and neck was performed from the aortic arch to the skull apex. Images are reviewed in the axial, sagittal, and coronal planes. 3-D MIPS images are created and assessed. IV contrast was administered without complication. All measurements were obtained according to NASCET criteria. A dose lowering technique was utilized adhering to the principles of ALARA. CT DOSE: 1761.1 mGy.cm FINDINGS: CT BRAIN: There is no acute intracranial hemorrhage, midline shift, hydrocephalus, intracranial mass, territorial ischemia or abnormal extra-axial collections. Suggestion of mild chronic microvascular ischemic disease. No abnormal intra- axial or extra-axial enhancement. Mastoid air cells and middle ear cavities are clear. No calvarial fracture. Mild mucosal thickening of the paranasal sinuses. CT ANGIOGRAM OF THE HEAD AND NECK: Patent innominate and subclavian arteries. The common and internal carotid arteries are patent. The bilateral anterior and middle cerebral arteries are also patent. The vertebrobasilar system and posterior cerebral arteries are widely patent. There is no aneurysm, high-grade stenosis, or proximal branch occlusion identified. Dural sinuses appear patent. Lung apices are clear. Unremarkable soft tissues. Chronic right clavicular fracture deformity. No acute fracture. IMPRESSION: 1. No acute intracranial abnormality. 2. Unremarkable CTA of the head and neck. 3. Mild mucosal thickening of the paranasal sinuses. ACT 112: Negative or not required by law. The above report was generated using voice recognition software. It may contain grammatical, syntax or spelling errors. Electronically signed by: Jc Pitt M.D. 06/16/2023 11:43 AM Neck CTA 06/16/23 10:41 CT angio head w con, CT angio neck with con, CT head/brain wo con CLINICAL HISTORY: 68 years-old Male with poss stroke. Acute shocklike symptoms COMPARISON STUDY: None TECHNIQUE: Unenhanced axial CT scan of the brain is performed. Subsequently, following the IV administration of 116 cc of Optiray, CT angiogram of the head and neck was performed from the aortic arch to the skull apex. Images are r eviewed in the axial, sagittal, and coronal planes. 3-D MIPS images are created and assessed. IV contrast was administered without complication. All measurements were obtained according to NASCET criteria. A dose lowering technique was utilized adhering to the principles of ALARA. CT DOSE: 1761.1 mGy.cm FINDINGS: CT BRAIN: There is no acute intracranial hemorrhage, midline shift, hydrocephalus, intracranial mass, territorial ischemia or abnormal extra-axial collections. Suggestion of mild chronic microvascular ischemic disease. No abnormal intra- axial or extra-axial enhancement. Mastoid air cells and middle ear cavities are clear. No calvarial fracture. Mild mucosal thickening of the paranasal sinuses. CT ANGIOGRAM OF THE HEAD AND NECK: Patent innominate and subclavian arteries. The common and internal carotid arteries are patent. The bilateral anterior and middle cerebral arteries are also patent. The vertebrobasilar system and posterior cerebral arteries are widely patent. There is no aneurysm, high-grade stenosis, or proximal branch occlusion identified. Dural sinuses appear patent. Lung apices are clear. Unremarkable soft tissues. Chronic right clavicular fracture deformity. No acute fracture. IMPRESSION: 1. No acute intracranial abnormality. 2. Unremarkable CTA of the head and neck. 3. Mild mucosal thickening of the paranasal sinuses. ACT 112: Negative or not required by law. The above report was generated using voice recognition software. It may contain grammatical, syntax or spelling errors. Electronically signed by: Jc Pitt M.D. 06/16/2023 11:43 AM Chest X-Ray 06/16/23 12:24 XR chest 1V not portable CLINICAL HISTORY: confusion TECHNIQUE: Single frontal radiograph of the chest was obtained. Comparison: None available at the time of this dictation. FINDINGS: No lines and tubes are seen. The cardiomediastinal silhouette is normal. The lungs are clear. No evidence of pleural effusion or pneumothorax. IMPRESSION: No acute chest disease. ACT 112: Negative or not required by law. Electronically signed by: Dmitri East M.D. 06/16/2023 1:58 PM Medications Administered Home Medications Medication Instructions Recorded Confirmed Last Taken fenofibrate micronized 134 mg 134 mg PO PM 10/29/21 06/16/23 06/15/23 capsule finasteride 1 mg tablet 1 mg PO QAM 10/29/21 06/16/23 06/16/23 insulin glargine 100 unit/mL (3 33 unit subcut QAM 10/29/21 06/16/23 11/29/21 12:00 mL) subcutaneous pen (Basaglar KwikPen U-100 Insulin) metformin 1,000 mg tablet 1,000 mg PO BID 10/29/21 06/16/23 06/16/23 rosuvastatin 20 mg tablet 20 mg PO QAM 10/29/21 06/16/23 06/16/23 ascorbic acid (vitamin C) 1,000 mg 1 g PO DAILY 06/16/23 06/16/23 Unknown tablet (Vitamin C) aspirin 81 mg tablet,delayed 81 mg PO DAILY 06/16/23 06/16/23 Unknown release (Leydi Low Dose Aspirin) cholecalciferol (vitamin D3) 50 50 mcg PO DAILY 06/16/23 06/16/23 Unknown mcg (2,000 unit) tablet (Vitamin D3) empagliflozin 25 mg tablet 25 mg PO DAILY 06/16/23 06/16/23 06/16/23 (Jardiance) lisinopril 10 mg tablet 10 mg PO DAILY 06/16/23 06/16/23 06/16/23 tirzepatide 7.5 mg/0.5 mL 7.5 mg subcut WK 06/16/23 06/16/23 06/13/23 subcutaneous pen injector (Red) vitamin B complex 1 tab PO DAILY 06/16/23 06/16/23 Unknown Active Medications Generic Name Dose Route Start Last Admin Trade Name Freq PRN Reason Stop Dose Admin Enoxaparin Sodium 40 mg 06/16/23 16:30 06/16/23 17:13 Enoxaparin Inj 40 Mg/0.4 Ml Syr SQ 07/16/23 16:29 Not Given Q24H CRISTO Fluticasone Propionate 2 sprays 06/16/23 16:30 06/16/23 17:12 Fluticasone Propionate Na Spr 16 Gm Btl NA 07/16/23 16:29 2 sprays Q24H CRISTO Administration (1) Altered mental status Altered mental status type: unspecified Qualified Code(s): R41.82 - Altered mental status, unspecified
[2023-06-16] MEDS: INSULIN ASPART PER UNIT CHARGE SC SCH ×2 (21:05→21:58)
[2023-06-16] MEDS: FENOFIBRATE NANOCRYSTALLIZED 145 MG TABLET PO SCH (22:56)
--- NOTE | 2023-06-17 00:12 | Magnetic Resonance Report ---
MRI OF THE BRAIN WITHOUT IV CONTRAST CLINICAL HISTORY: Change in mental status. COMPARISON STUDY: CT of the brain dated 06/16/2023. TECHNIQUE: MRI of the brain was performed utilizing various T1 and T2-weighted sequences in the axial , sagittal, and coronal planes. IV contrast was not administered for this examination. FINDINGS: Brain parenchyma: There is mild age related involutional change. The brain parenchyma is otherwise no rmal in appearance. There is no hemorrhage or mass effect. There is no restricted diffusion to sugges t acute ischemia. Bourne-white matter differentiation is preserved. No extra-axial fluid collection is seen. The cerebellar tonsils are normal in configuration. Ventricles, sulci, and cisterns: Prominent secondary to surgical change. Pituitary and sella: Unremarkable. Intracranial vasculature: Normal flow voids are maintained at the skull base. Orbits: The bony orbits are grossly intact. Orbital contents are normal in appearance. Sinuses and mastoids: There is moderate mucosal thickening in the left ethmoid sinuses. Mild to moder ate mucosal thickening is seen in the left maxillary antrum. Trace mucosal thickening is seen in the right maxillary sinus, the left sphenoid sinus, and the right ethmoid sinuses. The mastoid air cells are clear. Calvarium: Unremarkable. Cervical cord: Partially visualized cervical spinal cord is normal in morphology and signal intensity . IMPRESSION: 1 No acute intracranial abnormality. 2. Paranasal sinus disease as above. ACT 112: Negative or not required by law. Electronically signed by: Edwar Hernandez M.D. 06/17/2023 12:10 AM
[2023-06-17 08:28] LABS: Basophils # (auto) 0.05 K/uL (0.00-0.20); Basophils % (auto) 0.5 %; Eosinophils # (auto) 0.13 K/uL (0.00-0.50); Eosinophils % (auto) 1.4 %; Hemoglobin 15.9 g/dl (14.0-18.0); Immature Granulocytes # (auto) 0.03 K/uL (0.01-0.20); Immature Granulocytes % (auto) 0.3 %; Lymphocytes # (auto) 0.91 K/uL (1.20-3.40); Mean Corpuscular Hemoglobin 27.5 pg (25.0-34.0); Mean Corpuscular Hgb Conc 33.8 g/dL (32.0-36.0); Mean Corpuscular Volume 81.3 fL (80.0-100.0); Mean Platelet Volume 9.7 fL (9.4-12.4); Monocytes # (auto) 1.23 K/uL (0.11-0.59); Monocytes % (auto) 13.5 %; Neutrophils # (auto) 6.77 K/uL (1.40-6.50); Neutrophils % (auto) 74.3 %; Platelet Count 203 K/uL (130-400); RDW Coefficient of Variation 14.6 % (11.5-14.5); RDW Standard Deviation 42.7 fL (36.4-46.3); Red Blood Count 5.78 M/uL (4.70-6.10); White Blood Count 9.12 K/ul (4.8-10.8)
[2023-06-17 08:42] LABS: Albumin Globulin Ratio 1.7 (0.9-2); BUN Creatinine Ratio 16.9 (10-20); Bilirubin,Total 0.9 mg/dl (0.2-1.0); Calcium 8.7 mg/dl (8.6-10.3); Chol HDL Ratio 2.4 (0-5); Creatinine Clr Calc Pharmacy 111.5 ml/min; Est GFR (African American) 108.1 ml/min; Est GFR (Non-African American) 93.2 ml/min; Globulin 2.4 gm/dl (2.5-4.0); Potassium 4.3 mmol/L (3.5-5.1); Total Protein 6.4 gm/dl (6.0-8.3)
[2023-06-17] MEDS ORDERED: NON-FORMULARY MEDICATION (Finasteride 1 mg Tablet) PO SCH (09:00)
[2023-06-17] MEDS: LANTUS PER UNIT CHARGE SQ SCH (09:56)
[2023-06-17] MEDS: INSULIN ASPART PER UNIT CHARGE SC SCH ×4 (09:57→20:19)
[2023-06-17] MEDS: ASPIRIN 81 MG ECTAB PO SCH (09:58)
[2023-06-17] MEDS: lisinopril 10 MG TAB PO SCH (09:59)
[2023-06-17] MEDS: ROSUVASTATIN CALCIUM 20 MG TAB PO SCH (09:59)
[2023-06-17] MEDS ORDERED: SODIUM CHLORIDE 0.65% NA SOLN 45 ML (OCEAN) PRN (11:16)
[2023-06-17] MEDS: AMOXICILLIN/CLAVULANATE 875 MG TAB PO SCH ×2 (12:21→16:49)
[2023-06-17] MEDS: ADVANCED PROBIOTIC 1250 MG CAPSULE PO SCH (12:21)
--- NOTE | 2023-06-17 14:34 | Hospitalist Progress Note ---
Date of Service June 17, 2023 Assessment & Plan (1) TGA (transient global amnesia): Plan 68-year-old male with PMH of insulin-dependent DM2, HTN, HLD, hypertriglyceridemia, APOORVA on CPAP, obesity presented to the ED with complaint of episode of confusion on the day of arrival. He is being managed for the following: (1) TGA (transient global amnesia): (2) Altered mental status: Admitting labs with mild leukocytosis, otherwise no significant electrolyte abnormality, negative troponin. UA unremarkable. TSH WNL, +RSV CT Head: No acute intracranial abnormality. CTA Head and Neck: Unremarkable CTA of the head and neck. Mild mucosal thicken ing of the paranasal sinuses. MRI brain with no acute intracranial abnormality, paranasal sinus disease noted. Echo with EF of 60 to 65%, grade 1 diastolic dysfunction, no ASD detected. DDX TIA, metabolic encephalopathy Tele to monitor for arrhythmias Blood cultures pending, negative so far Continue aspirin and statin. Neurology evaluated, appreciate recommendation. RSV (respiratory syncytial virus infection): Paransal dz: on augmentin, complete the course. Plan: +RSV CXR: no acute infiltrate Continue with Flonase nasal spray and saline nasal spray (4) Elevated LFTs: Plan: Mildly elevated AST and ALT with normal T bili and alk phos. Have been WNL on outpatient labs. No abdominal pain Repeat CMP w/ normal labs (5) Abnormal EKG: Plan: EKG: sinus tachycardia, rate 104, RBBB. T wave inversion anterior, septal leads per my interpretation. Compared to EKG 12/07/21 and had RBBB with nonspecific T wave changes anterior leads No CP, SOB Troponin negative x 2 Repeat EKG if w/ chest pain. (6) Diabetes mellitus, type 2: Plan: A1c: 6.8 on 05/08/2023 Continue home basal insulin Hold home Jardiance, metformin, Mounjaro (7) High cholesterol: Continue fenofibrate, rosuvastatin (8) Hypertension: Stable. Continue lisinopril (9) APOORVA (obstructive sleep apnea): CPAP at bedtime DVT Prophylaxis: Lovenox SQ Full Code Follows with Dr Monteiro for routine care Admission and Anticipated Discharge Date Admission Date: June 16, 2023 Subjective Patient was seen and examined at bedside. Patient was sitting up in bed, on room air, NAD, reports ongoing nasal congestion and not feeling " very well". Patient reports eating okay, uses CPAP at night at home, denied chest pain or sore throat or cough. Physical Exam Physical Exam: GENERAL: Alert and oriented x3. NAD, on RA. HEENT: No pallor, no icterus. Pupils equal, round and reactive to light. Oral mucosa moist. +erythema and edema nasal turbinates. NECK: No JVD, no neck masses. HEART: S1 and S2 heard. Regular rate and rhythm. No murmur, no gallop. RESPIRATORY SYSTEM: Normal AP diameter. No accessory muscle use. No wheezing, no crackles. ABDOMEN: Soft, bowel sounds present, nontender, no distention. CENTRAL NERVOUS SYSTEM: No facial droop. Speech is clear. Obeys simple commands. Moves extremities. EXTREMITIES: No edema, no erythema seen. Results & Data Results & Data Vital Signs (Past 12 Hours) Vital Signs Temp Pulse Pulse Resp BP Pulse Ox O2 Del Method 06/17/23 11:44 36.4 C L 87 18 123/79 95 Room Air 06/17/23 07:58 37.1 C 86 18 135/79 95 Room Air 06/17/23 07:32 89 06/17/23 03:54 37.3 C 85 18 129/80 95 Room Air
[2023-06-17] MEDS: FLUTICASONE PROPIONATE NA SPR 16 GM BTL SCH (16:48)
[2023-06-17] MEDS: ENOXAPARIN INJ 40 MG/0.4 ML SYR SQ SCH (16:48)
[2023-06-17] MEDS: FENOFIBRATE NANOCRYSTALLIZED 145 MG TABLET PO SCH (20:19)
[2023-06-18 07:16] LABS: Hematocrit (blood only) 52.8 % (42.0-52.0); Hemoglobin 17.2 g/dl (14.0-18.0); Mean Corpuscular Hemoglobin 26.7 pg (25.0-34.0); Mean Corpuscular Hgb Conc 32.6 g/dL (32.0-36.0); Mean Platelet Volume 9.9 fL (9.4-12.4); Platelet Count 221 K/uL (130-400); RDW Coefficient of Variation 14.9 % (11.5-14.5); RDW Standard Deviation 42.8 fL (36.4-46.3); Red Blood Count 6.44 M/uL (4.70-6.10); White Blood Count 8.33 K/ul (4.8-10.8)
[2023-06-18] MEDS: guaiFENesin 600 MG TABCR PO SCH ×3 (07:27→20:11)
[2023-06-18] MEDS: AMOXICILLIN/CLAVULANATE 875 MG TAB PO SCH ×2 (07:27→16:56)
[2023-06-18] MEDS: ADVANCED PROBIOTIC 1250 MG CAPSULE PO SCH (07:27)
[2023-06-18] MEDS: ASPIRIN 81 MG ECTAB PO SCH (07:28)
[2023-06-18] MEDS: ROSUVASTATIN CALCIUM 20 MG TAB PO SCH (07:28)
[2023-06-18] MEDS: lisinopril 10 MG TAB PO SCH (07:28)
[2023-06-18 07:36] LABS: BUN Creatinine Ratio 20.5 (10-20); Calcium 8.8 mg/dl (8.6-10.3); Est GFR (African American) 107.5 ml/min; Est GFR (Non-African American) 92.8 ml/min; Magnesium 2.2 mg/dl (1.7-2.4); Phosphorus 3.6 mg/dl (2.5-4.9); Potassium 4.2 mmol/L (3.5-5.1)
[2023-06-18] MEDS: LANTUS PER UNIT CHARGE SQ SCH (08:47)
[2023-06-18] MEDS: INSULIN ASPART PER UNIT CHARGE SC SCH ×4 (08:47→20:15)
[2023-06-18] MEDS ORDERED: FEXOFENADINE HCL 180 MG TAB PO SCH (11:30)
[2023-06-18] MEDS ORDERED: predniSONE 20 MG TAB PO ONE (11:30)
[2023-06-18] MEDS: CETIRIZINE HCL 10 MG TABLET PO SCH (13:19)
--- NOTE | 2023-06-18 15:33 | Hospitalist Progress Note ---
Date of Service June 18, 2023 Assessment & Plan (1) TGA (transient global amnesia): Plan 68-year-old male with PMH of insulin-dependent DM2, HTN, HLD, hypertriglyceridemia, APOORVA on CPAP, obesity presented to the ED with complaint of episode of confusion on the day of arrival. He is being managed for the following: (1) TGA (transient global amnesia): (2) Altered mental status: Admitting labs with mild leukocytosis, otherwise no significant electrolyte abnormality, negative troponin. UA unremarkable. TSH WNL, +RSV CT Head: No acute intracranial abnormality. CTA Head and Neck: Unremarkable CTA of the head and neck. Mild mucosal thicken ing of the paranasal sinuses. MRI brain with no acute intracranial abnormality, paranasal sinus disease noted. Echo with EF of 60 to 65%, grade 1 diastolic dysfunction, no ASD detected. DDX TIA, metabolic encephalopathy Tele to monitor for arrhythmias Blood cultures pending, negative so far Continue aspirin and statin. Neurology evaluated, appreciate recommendation. RSV (respiratory syncytial virus infection): Paransal dz: on augmentin, complete the course. Nasal congestion Plan: +RSV CXR: no acute infiltrate Continue with Flonase nasal spray and saline nasal spray added cetirizine and po steroid. (4) Elevated LFTs: Plan: Mildly elevated AST and ALT with normal T bili and alk phos. Have been WNL on outpatient labs. No abdominal pain Repeat CMP w/ normal labs (5) Abnormal EKG: Plan: EKG: sinus tachycardia, rate 104, RBBB. T wave inversion anterior, septal leads per my interpretation. Compared to EKG 12/07/21 and had RBBB with nonspecific T wave changes anterior leads No CP, SOB Troponin negative x 2 Repeat EKG if w/ chest pain. (6) Diabetes mellitus, type 2: Plan: A1c: 6.8 on 05/08/2023 Continue home basal insulin Hold home Jardiance, metformin, Mounjaro (7) High cholesterol: Continue fenofibrate, rosuvastatin (8) Hypertension: Stable. Continue lisinopril (9) APOORVA (obstructive sleep apnea): CPAP at bedtime DVT Prophylaxis: Lovenox SQ Full Code Follows with Dr Monteiro for routine care Admission and Anticipated Discharge Date Admission Date: June 16, 2023 Subjective Patient was seen and examined at bedside. Patient was sitting up in bed, on room air, NAD, reports ongoing nasal congestion and very frustrated that he can't breath time and again and feels like he is going downhill. Patient reports eating okay, uses CPAP at night at home, denied chest pain or sore throat or cough. Adding cetirizine and PO steroid to help w/ nasal congestion. Pt advised to c/w flonase and saline nasal spray. Physical Exam Physical Exam: GENERAL: Alert and oriented x3. NAD, on RA. HEENT: No pallor, no icterus. Pupils equal, round and reactive to light. Oral mucosa moist. +erythema and edema nasal turbinates. NECK: No JVD, no neck masses. HEART: S1 and S2 heard. Regular rate and rhythm. No murmur, no gallop. RESPIRATORY SYSTEM: Normal AP diameter. No accessory muscle use. No wheezing, no crackles. ABDOMEN: Soft, bowel sounds present, nontender, no distention. CENTRAL NERVOUS SYSTEM: No facial droop. Speech is clear. Obeys simple commands. Moves extremities. EXTREMITIES: No edema, no erythema seen. Results & Data Results & Data Vital Signs (Past 12 Hours) Vital Signs Temp Pulse Pulse Resp BP Pulse Ox O2 Del Method 06/18/23 15:04 89 06/18/23 11:49 36.4 C L 86 18 135/86 99 Room Air 06/18/23 09:12 82 06/18/23 07:30 Room Air 06/18/23 07:26 36.4 C L 06/18/23 07:15 88 16 124/83 98 Room Air
[2023-06-18] MEDS: ENOXAPARIN INJ 40 MG/0.4 ML SYR SQ SCH (16:56)
[2023-06-18] MEDS: FLUTICASONE PROPIONATE NA SPR 16 GM BTL SCH (17:01)
[2023-06-18] MEDS: FENOFIBRATE NANOCRYSTALLIZED 145 MG TABLET PO SCH (20:11)
[2023-06-19 07:07] LABS: Hematocrit (blood only) 50.9 % (42.0-52.0); Hemoglobin 17.2 g/dl (14.0-18.0); Mean Corpuscular Hemoglobin 27.2 pg (25.0-34.0); Mean Corpuscular Hgb Conc 33.8 g/dL (32.0-36.0); Mean Corpuscular Volume 80.4 fL (80.0-100.0); Mean Platelet Volume 10.1 fL (9.4-12.4); Platelet Count 270 K/uL (130-400); RDW Standard Deviation 41.7 fL (36.4-46.3); Red Blood Count 6.33 M/uL (4.70-6.10); White Blood Count 11.26 K/ul (4.8-10.8)
[2023-06-19 07:24] LABS: BUN Creatinine Ratio 19.5 (10-20); Calcium 9.1 mg/dl (8.6-10.3); Creatinine Clr Calc Pharmacy 111.2 ml/min; Est GFR (African American) 108.1 ml/min; Est GFR (Non-African American) 93.2 ml/min
[2023-06-19] MEDS: guaiFENesin 600 MG TABCR PO SCH (08:24)
[2023-06-19] MEDS: ADVANCED PROBIOTIC 1250 MG CAPSULE PO SCH (08:24)
[2023-06-19] MEDS: lisinopril 10 MG TAB PO SCH (08:25)
[2023-06-19] MEDS: CETIRIZINE HCL 10 MG TABLET PO SCH (08:25)
[2023-06-19] MEDS: ASPIRIN 81 MG ECTAB PO SCH (08:25)
[2023-06-19] MEDS: ROSUVASTATIN CALCIUM 20 MG TAB PO SCH (08:25)
[2023-06-19] MEDS: AMOXICILLIN/CLAVULANATE 875 MG TAB PO SCH (08:26)
[2023-06-19] MEDS: INSULIN ASPART PER UNIT CHARGE SC SCH ×2 (08:31→12:54)
[2023-06-19] MEDS: LANTUS PER UNIT CHARGE SQ SCH (08:32)
[2023-06-19] MEDS ORDERED: predniSONE 20 MG TAB PO SCH (09:00)
[2023-06-19] MEDS ORDERED: STROKE PATIENT DISCHARGE STA (11:11)
--- NOTE | 2023-06-19 11:16 | Discharge Summary ---
Date of Service June 19, 2023 Admission HPI Per Admitting Provider Patient is 68-year-old male with PMH insulin-dependent DM II, HTN, dyslipidemia, hypertriglyceridemia, APOORVA, obesity presented to ER with complaint of episode of confusion today. History obtained from patient, patient's as well as outpatient chart review. Patient states this morning woke up around 8:30 AM and felt "like was in a fog" and was confused. Patient states he did not know what day it was and could not remember the events from the last several days. Patient's states patient kept asking what day it was. He took his blood sugar and reports was 112. As the morning progressed patient had improvement of symptoms and is now remembering the events since and no longer feels like he is in a "fog". Patient's states he seems like he is back to baseline currently. Patient states past couple days has had nasal congestion, rhinorrhea. He admits last night was using OTC phenylephrine nasal spray several times with limited relief. Denies facial/sinus tenderness. Denies known ill contacts. Denies any other new OTC medication use or prescription medication changes. Reports is compliant with CPAP, but last night took off several times secondary to nasal congestion. Denies fever/chills, diaphoresis, N/V/D/C, LOO, dizziness, syncope, vision changes, neck pain, CP, SOB, orthopnea, palpitations, cough, sore throat, choking, otalgia, abdominal pain, paresthesias, weakness, extremity weakness, extremity edema, rashes, urinary symptoms. Admission Exam Per Admitting Provider General: no distress, WDWN Head: normocephalic, atraumatic Eyes: PERRL, EOM's intact, no nystagmus, conjunctiva non-injected, anicteric ENT: normal inspection external ears, bilateral TMs joyce without bulging, +erythema and edema nasal turbinates, +clear rhinorrhea, mucous membranes moist Neck: supple, trachea midline Lungs: clear, no respiratory distress, no wheezing/rhonchi/rales CV: RRR, no murmur, no pretibial edema Abd: normal BS, soft, non-tender Ext: no cyanosis, no calf tenderness Neuro: A&O x 3, normal affect, facial sensation is intact and symmetric, face is strong and symmetric, hearing grossly intact, soft palate elevates symmetrically, no dysarthria, shoulder shrug intact, tongue is midline, normal movement, no fasciculations. Muscle tone normal. strength 5/5 bilateral upper and lower extremities. Normal gait Skin: warm, dry Principal Diagnosis Altered mental status Paranasal sinusitis RSV URTI Nasal congestion Discharge Exam GENERAL: Alert and oriented x3. NAD, on RA. HEENT: No pallor, no icterus. Pupils equal, round and reactive to light. Oral mucosa moist. +erythema and edema nasal turbinates - improving. NECK: No JVD, no neck masses. HEART: S1 and S2 heard. Regular rate and rhythm. No murmur, no gallop. RESPIRATORY SYSTEM: Normal AP diameter. No accessory muscle use. No wheezing, no crackles. ABDOMEN: Soft, bowel sounds present, nontender, no distention. CENTRAL NERVOUS SYSTEM: No facial droop. Speech is clear. Obeys simple commands. Moves extremities. EXTREMITIES: No edema, no erythema seen. Discharge Data Allergies Allergy/AdvReac Type Severity Reaction Status Date / Time No Known Allergies Allergy Unknown Verified 11/30/21 06:56 Consultations 06/16/23 12:03 ED Decision to Admit Stat 06/16/23 16:22 Consult Neurology Routine Ordered Studies 06/16/23 10:41 CT angio head w con Stat CT angio neck with con Stat CT head/brain wo con Stat 06/16/23 15:19 MR brain wo con Stat Hospital Course (1) TGA (transient global amnesia): Plan 68-year-old male with PMH of insulin-dependent DM2, HTN, HLD, hypertriglyceridemia, APOORVA on CPAP, obesity presented to the ED with complaint of episode of confusion on the day of arrival. He was managed for the following: (1) TGA (transient global amnesia): (2) Altered mental status: Admitting labs with mild leukocytosis, otherwise no significant electrolyte abnormality, negative troponin. UA unremarkable. TSH WNL, +RSV CT Head: No acute intracranial abnormality. CTA Head and Neck: Unremarkable CTA of the head and neck. Mild mucosal thickening of the paranasal sinuses. MRI brain with no acute intracranial abnormality, paranasal sinus disease noted. Echo with EF of 60 to 65%, grade 1 diastolic dysfunction, no ASD detected. DDX TIA, metabolic encephalopathy Blood cultures negative so far. Patient with no new weakness or AMS. AMS likely secondary to effects of being adequate oxygenation during sleep. Continue aspirin and statin. Neurology evaluated, appreciate recommendation. Patient to continue with CPAP at bedtime. RSV (respiratory syncytial virus infection): Paransal dz: on augmentin, complete the course. Nasal congestion Plan: +RSV CXR: no acute infiltrate Continue with Flonase nasal spray and saline nasal spray Continue with cetirizine and po steroid. Patient has been explained to avoid driving while on cetirizine, to check blood glucose regularly/need to contact glycemic pharmacy if uptrending blood glucose. (4) Elevated LFTs: Plan: Mildly elevated AST and ALT with normal T bili and alk phos. Have been WNL on outpatient labs. No abdominal pain Repeat CMP w/ normal labs (5) Abnormal EKG: Plan: EKG: sinus tachycardia, rate 104, RBBB. T wave inversion anterior, septal leads per my interpretation. Compared to EKG 12/07/21 and had RBBB with nonspecific T wave changes anterior leads No CP, SOB Troponin negative x 2 Repeat EKG if w/ chest pain. (6) Diabetes mellitus, type 2: Plan: A1c: 6.8 on 05/08/2023 Continue home basal insulin Hold home Jardiance, metformin, Mounjaro (7) High cholesterol: Continue fenofibrate, rosuvastatin (8) Hypertension: Stable. Continue lisinopril (9) APOORVA (obstructive sleep apnea): CPAP at bedtime DVT Prophylaxis: Lovenox SQ Full Code Follows with Dr Monteiro for routine care Patient is being discharged home with following instruction at the point of discharge: Follow-up with your primary care physician within a week time and likely you will need labs CBC/CMP/magnesium/phosphorus. For your sinus disease, you will be discharged on Augmentin. Complete the course. For your nasal congestion, you will be discharged on 3 more days of steroid. Continue to take your blood glucose regularly, if higher than 300 on more than 2 occasions reach out to your diabetic clinic. Also to help with your nasal congestion, you will be discharged on cetirizine, recommend to avoid driving while on cetirizine. Take your medications as prescribed. Please make sure that you are able to get your medications today by calling your pharmacy before you leave the hospital so that your treatment continuity is not broken. Home Health Attestation I certify that this patient is under my care and that I, or a physicians food trades assistants working with me, had a face to-face encounter that meets the home health [id number] encounter requirements with this patient. The encounter with the patient was in whole, or in part, for the following medical condition, which is the primary reason for home health care (list medical condition): I certify that, based on my findings, the following services are medically necessary home health services: My clinical findings support the need for the above services because: Further, I certify that my clinical findings support that this patient is homebound (i.e. absences from home require considerable and taxing effort and are for medical reasons or jewish services or infrequently or of short duration when for other reasons) because: Certification for Home Health Services: Based on the above findings, I certify that this patient is confined to the home and needs intermittent group home care, physical therapy and/or speech therapy or continues to need occupational therapy. The patient is under my care, and I have initiated the establishment of the plan of care. This patient will be followed by a physician who will periodically review the plan of care. Total Time Total Time Spent Total Time Spent (In Minutes): 40 Discharge Plan Discharge Items Patient Disposition: Home - Self-Care Reason For Visit: AMS Discharge Diagnosis: Altered mental status Paranasal sinusitis RSV URTI Nasal congestion Activity: Resume your previous activity Non-emergency contact: Primary Care Provider Call non-emergency contact if: you have any medication questions, your symptoms worsen and your temperature is above 101.5 Follow-up/Referrals: Raman Monteiro MD [Primary Care Provider] - Diet: Carb Consistent or DM2 and Heart Healthy Addtl Attending Provider Instructions: Follow-up with your primary care physician within a week time and likely you will need labs CBC/CMP/magnesium/phosphorus. For your sinus disease, you will be discharged on Augmentin. Complete the course. For your nasal congestion, you will be discharged on 3 more days of steroid. Continue to take your blood glucose regularly, if higher than 300 on more than 2 occasions reach out to your diabetic clinic. Also to help with your nasal congestion, you will be discharged on cetirizine, recommend to avoid driving while on cetirizine. Take your medications as prescribed. Please make sure that you are able to get your medications today by calling your pharmacy before you leave the hospital so that your treatment continuity is not broken. Pending Studies at Discharge: Yes Stand-Alone Forms: My [facility], Smoking Cessation Medications and DC Order Prescriptions: New amoxicillin-pot clavulanate 875-125 mg Tablet 1 tab PO BIDM 5 Days Qty: 10 0RF cetirizine 10 mg Tablet 10 mg PO QAM 5 Days Qty: 5 0RF fluticasone propionate 50 mcg/actuation Superior,Suspension 2 spray NA Q24H Qty: 16 0RF Saline Mist 0.65 % Aerosol,Superior 2 spray NA Q4H PRN (Reason: nasal congestion) Qty: 44 0RF Advanced Probiotic 625 mg (10 billion cell) Capsule 2 cap PO DAILY 7 Days Qty: 14 0RF prednisone 20 mg Tablet 40 mg PO DAILY 3 Days Qty: 6 0RF guaifenesin [Mucinex] 600 mg Tablet Extended Release 12hr 600 mg PO Q12 5 Days Qty: 10 0RF Continued fenofibrate micronized 134 mg Capsule 134 mg PO PM metformin 1,000 mg Tablet 1,000 mg PO BID finasteride 1 mg Tablet 1 mg PO QAM rosuvastatin 20 mg Tablet 20 mg PO QAM insulin glargine [Basaglar KwikPen U-100 Insulin] 100 unit/mL (3 mL) Insulin Pen 33 unit SUBCUT QAM lisinopril 10 mg tablet 10 mg PO DAILY Jardiance 25 mg tablet 25 mg PO DAILY Mounjaro 7.5 mg/0.5 mL pen injector 7.5 mg SUBCUT WK aspirin [Leydi Low Dose Aspirin] 81 mg tablet,delayed release (DR/EC) 81 mg PO DAILY ascorbic acid (vitamin C) [Vitamin C] 1,000 mg Tablet 1 g PO DAILY B Complex Tablet Extended Release 1 tab PO DAILY cholecalciferol (vitamin D3) [Vitamin D3] 50 mcg (2,000 unit) Tablet 50 mcg PO DAILY Discharge Orders: Discharge Order (Routine); Ordered 06/19/23 Ordered By: Val Stewart Admission Data Admit Date/Time: 06/16/23 12:36 Attending Provider: Val Stewart Admit Provider: Katie Penny Primary Care Provider: Raman Monteiro Other Providers: Katie Penny; Tung Carlisle
== END 2023-06-19 13:34 | disposition home or self-care (01) | DRG 72 ==
LOC: ED 09:50 → EDINP 12:36 → SUATTDRO 12:36 → 2W 16:23